=== PATIENT | male | born 1945 | race Caucasian/White ===

== ENCOUNTER 2018-11-17 10:51 | Emergency (ER) | payer MEDICARE, OTHER ==
[~2018-11-17] VITALS: Ht 182.9 cm; Wt 81.7 kg
[2018-11-17 11:33] LABS: BASOPHILS ABSOLUTE AUTO 0.02 K/mm3 (0.00-0.23); BASOPHILS PERCENT AUTO 0 % (0-2); EOSINOPHILS ABSOLUTE AUTO 0.03 K/mm3 (0.00-0.68); EOSINOPHILS PERCENT AUTO 0 % (0-6); Hematocrit 43.7 % (37.0-53.0); IMMATURE GRAN ABSOLUTE AUTO 0.04 K/mm3 (0.00-0.10); IMMATURE GRAN PERCENT AUTO 1 % (0-1); LYMPHOCYTES ABSOLUTE AUTO 1.22 K/mm3 (0.84-5.20); LYMPHOCYTES PERCENT AUTO 17 % (21-46); MONOCYTES ABSOLUTE AUTO 0.43 K/mm3 (0.16-1.47); MONOCYTES PERCENT AUTO 6 % (4-13); Mean Corpuscular HGB 31.1 pg (26.0-34.0); Mean Corpuscular HGB Conc 34.3 g/dL (31.5-36.5); Mean Corpuscular Volume 91 fL (80-100); Mean Platelet Volume 9.3 fL (9.1-12.4); NEUTROPHILS ABSOLUTE AUTO 5.29 K/mm3 (1.96-9.15); NEUTROPHILS PERCENT AUTO 75 % (41-73); Platelet Count 196 K/mm3 (150-400); RDW Coefficient Variation 13.5 % (11.7-14.2); RDW Standard Deviation 44.9 fL (35.1-46.3); Red Blood Cell Count 4.82 M/mm3 (4.30-5.90); White Blood Cell Count 7.03 K/mm3 (4.00-11.30)
[2018-11-17] MEDS ORDERED: VENL150ER PO (11:34)
[2018-11-17] MEDS ORDERED: ROSU10TA PO (11:34)
[2018-11-17 11:55] LABS: Alanine Aminotransfer (ALT/SGP 43 U/L (12-78); Albumin, Blood 3.8 g/dL (3.4-5.0); Alk Phos 80 U/L (50-136); Anion Gap 11 mmol/L (6-16); Aspartate Aminotrans (AST/SGOT 29 U/L (12-37); Bilirubin, Total 0.6 mg/dL (0.1-1.0); Blood Urea Nitrogen 13 mg/dL (8-24); Bun/Creatinine Ratio 15.4 (12.0-20.0); CO2, Blood 23 mmol/L (21-32); Calcium, Blood 9.1 mg/dL (8.5-10.1); Chloride, Blood 109 mmol/L (98-108); Creatinine, Blood 0.85 mg/dL (0.60-1.20); Globulin, Blood 3.8 g/dL (2.2-4.0); Glomerular Filtration Rate >60 (60-); Glucose, Blood 135 mg/dL (70-99); Potassium, Blood 3.6 mmol/L (3.5-5.5); Sodium, Blood 143 mmol/L (136-145); Total Protein, Blood 7.6 g/dL (6.4-8.2)
[2018-11-17] MEDS ORDERED: Zofran4 MG PO (13:09)
== END 2018-11-17 13:20 | disposition home or self-care (01) ==
LOC: ER 10:51
PROVIDERS: Emergency Medicine
DX: R11.2 Nausea with vomiting, unspecified (principal); R10.30 Lower abdominal pain, unspecified; Z79.899 Other long term (current) drug therapy; E78.00 Pure hypercholesterolemia, unspecified
CPT/HCPCS: 36415; 74176; 80053; 83690; 85025; 96361; 96374; 99284-25; J2405; J7030

== ENCOUNTER 2018-12-11 08:51 | Day surgery (SDC) | payer MEDICARE, OTHER ==
[~2018-12-11] VITALS: Ht 182.9 cm; Wt 86.9 kg
[~2018-12-11 08:51] MED LIST: ROSU10TA PO; VENL150ER PO; Zofran4 MG PO
[2018-12-11] MEDS ORDERED: PANT40 (10:07)
--- NOTE | 2018-12-11 10:21 | NUR ---
12/11/18 1021 Britta Arnold PT NOTIFIED ON DELAY D/T PREVIOUS CASE TAKING LONGER THAN EXPECTED. PT STATES AN UNDERSTANDING. PT RESTING COMFORTABLY IN PRE OP, CALL LIGHT WITHIN REACH. WILL CONTINUE TO MONITOR UNTIL REPORT GIVEN TO OR NURSE.
== END 2018-12-11 13:14 | disposition home or self-care (01) ==
LOC: ORSCSDS 08:51
PROVIDERS: Podiatrist Foot & Ankle Surgery
PROC: 0JNR0ZZ Release Left Foot Subcutaneous Tissue and Fascia, Open Approach (ICD-10-PCS; principal; 2018-12-11 10:30)
PROC: 0HTRXZZ Resection of Toe Nail, External Approach (ICD-10-PCS; principal; 2018-12-11 10:30)
DX: M72.2 Plantar fascial fibromatosis (principal); L03.032 Cellulitis of left toe; I25.10 Atherosclerotic heart disease of native coronary artery without angina pectoris; Z87.891 Personal history of nicotine dependence; Z79.899 Other long term (current) drug therapy
CPT/HCPCS: J0690; J2250; J2704; J3010; J7120

== ENCOUNTER → 2020-04-24 | Outpatient (CLI) | payer OTHER ==
[~2020-04-24] MED LIST changes: +PANT40
== END | disposition home or self-care (01) ==
LOC: LAB 12:04 → LAB SHORT 12:04
DX: L01.02 Bockhart's impetigo (principal)
CPT/HCPCS: 88305

== ENCOUNTER → 2020-07-20 | Outpatient (CLI) | payer OTHER | LOC: LAB SHORT 12:38 → PLD 12:38 | DX: L57.0 Actinic keratosis (principal) | CPT/HCPCS: 88305 ==

== ENCOUNTER → 2020-10-02 | Outpatient (CLI) | payer OTHER ==
[2020-10-02 10:58] LABS: BASOPHILS ABSOLUTE AUTO 0.03 K/mm3 (0.00-0.23); BASOPHILS PERCENT AUTO 0 % (0-2); EOSINOPHILS ABSOLUTE AUTO 0.03 K/mm3 (0.00-0.68); EOSINOPHILS PERCENT AUTO 0 % (0-6); Hematocrit 44.6 % (37.0-53.0); Hemoglobin 15.4 g/dL (13.5-17.5); IMMATURE GRAN ABSOLUTE AUTO 0.03 K/mm3 (0.00-0.10); IMMATURE GRAN PERCENT AUTO 0 % (0-1); LYMPHOCYTES ABSOLUTE AUTO 1.55 K/mm3 (0.84-5.20); LYMPHOCYTES PERCENT AUTO 17 % (21-46); MONOCYTES ABSOLUTE AUTO 0.68 K/mm3 (0.16-1.47); MONOCYTES PERCENT AUTO 7 % (4-13); Mean Corpuscular HGB 31.8 pg (26.0-34.0); Mean Corpuscular HGB Conc 34.5 g/dL (31.5-36.5); Mean Corpuscular Volume 92 fL (80-100); Mean Platelet Volume 9.6 fL (9.1-12.4); NEUTROPHILS ABSOLUTE AUTO 7.07 K/mm3 (1.96-9.15); NEUTROPHILS PERCENT AUTO 75 % (41-73); Platelet Count 242 K/mm3 (150-400); RDW Coefficient Variation 13.3 % (11.7-14.2); RDW Standard Deviation 44.2 fL (35.1-46.3); Red Blood Cell Count 4.85 M/mm3 (4.30-5.90); White Blood Cell Count 9.39 K/mm3 (4.00-11.30)
[2020-10-02 11:12] LABS: Alanine Aminotransfer (ALT/SGP 28 U/L (12-78); Albumin, Blood 4.2 g/dL (3.4-5.0); Albumin/Globulin Ratio 1.1 (0.8-1.8); Alk Phos 72 U/L (40-126); Anion Gap 8 mmol/L (6-16); Aspartate Aminotrans (AST/SGOT 23 U/L (12-37); Bilirubin, Total 0.8 mg/dL (0.1-1.0); Blood Urea Nitrogen 20 mg/dL (8-24); Bun/Creatinine Ratio 21.3 (12.0-20.0); CO2, Blood 27 mmol/L (21-32); Calcium, Blood 9.4 mg/dL (8.5-10.1); Chloride, Blood 100 mmol/L (98-108); Creatinine, Blood 0.94 mg/dL (0.60-1.20); Globulin, Blood 3.9 g/dL (2.2-4.0); Glomerular Filtration Rate >60 (60-); Glucose, Blood 112 mg/dL (70-99); Potassium, Blood 3.7 mmol/L (3.5-5.5); Sodium, Blood 135 mmol/L (136-145); Total Protein, Blood 8.1 g/dL (6.4-8.2)
== END | disposition home or self-care (01) ==
LOC: LAB SHORT 10:54 → LAB EV 10:54
PROVIDERS: General Practice
DX: R10.13 Epigastric pain (principal)
CPT/HCPCS: 80053; 85025

== ENCOUNTER → 2022-03-12 | Outpatient (CLI) | payer OTHER ==
[2022-03-12 19:05] LABS: BASOPHILS ABSOLUTE AUTO 0.04 K/mm3 (0.00-0.23); BASOPHILS PERCENT AUTO 1 % (0-2); EOSINOPHILS PERCENT AUTO 3 % (0-6); Hematocrit 41.2 % (37.0-53.0); Hemoglobin 14.1 g/dL (13.5-17.5); IMMATURE GRAN ABSOLUTE AUTO 0.03 K/mm3 (0.00-0.10); IMMATURE GRAN PERCENT AUTO 0 % (0-1); LYMPHOCYTES ABSOLUTE AUTO 3.28 K/mm3 (0.84-5.20); LYMPHOCYTES PERCENT AUTO 43 % (21-46); MONOCYTES ABSOLUTE AUTO 0.78 K/mm3 (0.16-1.47); MONOCYTES PERCENT AUTO 10 % (4-13); Mean Corpuscular HGB 31.6 pg (26.0-34.0); Mean Corpuscular HGB Conc 34.2 g/dL (31.5-36.5); Mean Corpuscular Volume 92 fL (80-100); NEUTROPHILS ABSOLUTE AUTO 3.27 K/mm3 (1.96-9.15); NEUTROPHILS PERCENT AUTO 43 % (41-73); Platelet Count 174 K/mm3 (150-400); RDW Standard Deviation 43.2 fL (35.1-46.3); Red Blood Cell Count 4.46 M/mm3 (4.30-5.90)
[2022-03-12 19:55] LABS: Alanine Aminotransfer (ALT/SGP 29 U/L (12-78); Albumin, Blood 3.7 g/dL (3.4-5.0); Albumin/Globulin Ratio 0.9 (0.8-1.8); Alk Phos 75 U/L (50-136); Anion Gap 6 mmol/L (6-16); Aspartate Aminotrans (AST/SGOT 26 U/L (12-37); Bilirubin, Total 0.4 mg/dL (0.1-1.0); Blood Urea Nitrogen 14 mg/dL (8-24); Bun/Creatinine Ratio 15.7 (12.0-20.0); CHOL/HDL RATIO 4.3; CO2, Blood 24 mmol/L (21-32); Calcium, Blood 9.1 mg/dL (8.5-10.1); Chloride, Blood 110 mmol/L (98-108); Cholesterol 165 mg/dL (50-200); Creatinine, Blood 0.89 mg/dL (0.60-1.20); Globulin, Blood 4.1 g/dL (2.2-4.0); Glomerular Filtration Rate 89 (60-); Glucose, Blood 91 mg/dL (70-99); HDL Cholesterol 38 mg/dL (>39); LDL/HDL RATIO 2.4; Low Density Lipoprotein Chol 91 mg/dL (0-110); Potassium, Blood 4.2 mmol/L (3.5-5.5); Sodium, Blood 140 mmol/L (136-145); Total Protein, Blood 7.8 g/dL (6.4-8.2); Triglycerides 181 mg/dL (30-160); Very Low Density Lipoprot Chol 36 mg/dL (6-32)
== END | disposition home or self-care (01) ==
LOC: LAB 16:10 → LAB SHORT 16:10
PROVIDERS: Family Medicine
DX: Z13.6 Encounter for screening for cardiovascular disorders (principal); Z11.59 Encounter for screening for other viral diseases; R06.00 Dyspnea, unspecified
CPT/HCPCS: 80053; 80061; 84443; 85025; 86803

== ENCOUNTER 2023-01-09 10:32 | Emergency (ER) | payer OTHER ==
[~2023-01-09] VITALS: Ht 182.9 cm; Wt 81.7 kg
[2023-01-09 12:00] LABS: BASOPHILS ABSOLUTE AUTO 0.04 K/mm3 (0.00-0.23); BASOPHILS PERCENT AUTO 1 % (0-2); EOSINOPHILS ABSOLUTE AUTO 0.11 K/mm3 (0.00-0.68); EOSINOPHILS PERCENT AUTO 1 % (0-6); Hematocrit 37.1 % (37.0-53.0); Hemoglobin 12.7 g/dL (13.5-17.5); IMMATURE GRAN ABSOLUTE AUTO 0.02 K/mm3 (0.00-0.10); IMMATURE GRAN PERCENT AUTO 0 % (0-1); LYMPHOCYTES ABSOLUTE AUTO 1.64 K/mm3 (0.84-5.20); LYMPHOCYTES PERCENT AUTO 22 % (21-46); MONOCYTES ABSOLUTE AUTO 0.66 K/mm3 (0.16-1.47); MONOCYTES PERCENT AUTO 9 % (4-13); Mean Corpuscular HGB 31.3 pg (26.0-34.0); Mean Corpuscular HGB Conc 34.2 g/dL (31.5-36.5); Mean Corpuscular Volume 91 fL (80-100); Mean Platelet Volume 10.6 fL (9.1-12.4); NEUTROPHILS ABSOLUTE AUTO 5.12 K/mm3 (1.96-9.15); NEUTROPHILS PERCENT AUTO 68 % (41-73); Platelet Count 101 K/mm3 (150-400); RDW Coefficient Variation 14.1 % (11.7-14.2); RDW Standard Deviation 47.1 fL (35.1-46.3); Red Blood Cell Count 4.06 M/mm3 (4.30-5.90); White Blood Cell Count 7.59 K/mm3 (4.00-11.30)
[2023-01-09 12:41] LABS: Albumin, Blood 3.6 g/dL (3.4-5.0); Albumin/Globulin Ratio 0.9 (0.8-1.8); Bilirubin, Total 0.6 mg/dL (0.1-1.0); Bun/Creatinine Ratio 24.4 (12.0-20.0); Calcium, Blood 8.8 mg/dL (8.5-10.1); Creatinine, Blood 0.86 mg/dL (0.60-1.20); Globulin, Blood 3.9 g/dL (2.2-4.0); Potassium, Blood 4.5 mmol/L (3.5-5.5); Total Protein, Blood 7.5 g/dL (6.4-8.2)
[2023-01-09] MEDS ORDERED: Norco 5-325 Ta1 EACH PO (13:59)
[2023-01-09] MEDS ORDERED: ONDA4ODT MM (13:59)
[2023-01-09 14:01] VITALS: BP 143/72
== END 2023-01-09 14:19 | disposition home or self-care (01) ==
LOC: ER 10:32
PROVIDERS: Physician Assistant
DX: K85.90 Acute pancreatitis without necrosis or infection, unspecified (principal); Z88.6 Allergy status to analgesic agent; Z79.899 Other long term (current) drug therapy; E78.00 Pure hypercholesterolemia, unspecified; Z87.891 Personal history of nicotine dependence
CPT/HCPCS: 80053; 83690; 85025; 99284

== ENCOUNTER 2023-01-23 12:23 | Emergency (ER) | payer OTHER ==
[~2023-01-23] VITALS: Ht 182.9 cm; Wt 79.4 kg
[~2023-01-23 12:23] MED LIST changes: +Norco 5-325 Ta1 EACH PO; +ONDA4ODT MM
[2023-01-23 13:02] LABS: BASOPHILS ABSOLUTE AUTO 0.03 K/mm3 (0.00-0.23); BASOPHILS PERCENT AUTO 1 % (0-2); EOSINOPHILS ABSOLUTE AUTO 0.07 K/mm3 (0.00-0.68); EOSINOPHILS PERCENT AUTO 1 % (0-6); Hematocrit 40.3 % (37.0-53.0); Hemoglobin 13.9 g/dL (13.5-17.5); IMMATURE GRAN ABSOLUTE AUTO 0.02 K/mm3 (0.00-0.10); IMMATURE GRAN PERCENT AUTO 0 % (0-1); LYMPHOCYTES ABSOLUTE AUTO 1.61 K/mm3 (0.84-5.20); LYMPHOCYTES PERCENT AUTO 26 % (21-46); MONOCYTES ABSOLUTE AUTO 0.72 K/mm3 (0.16-1.47); MONOCYTES PERCENT AUTO 11 % (4-13); Mean Corpuscular HGB 31.6 pg (26.0-34.0); Mean Corpuscular HGB Conc 34.5 g/dL (31.5-36.5); Mean Corpuscular Volume 92 fL (80-100); Mean Platelet Volume 10.6 fL (9.1-12.4); NEUTROPHILS ABSOLUTE AUTO 3.85 K/mm3 (1.96-9.15); NEUTROPHILS PERCENT AUTO 61 % (41-73); Platelet Count 116 K/mm3 (150-400); RDW Coefficient Variation 14.6 % (11.7-14.2); RDW Standard Deviation 48.9 fL (35.1-46.3)
[2023-01-23 13:42] LABS: Albumin, Blood 3.9 g/dL (3.4-5.0); Bilirubin, Total 0.7 mg/dL (0.1-1.0); Bun/Creatinine Ratio 21.6 (12.0-20.0); Calcium, Blood 9.3 mg/dL (8.5-10.1); Creatinine, Blood 0.93 mg/dL (0.60-1.20); Globulin, Blood 3.9 g/dL (2.2-4.0); Total Protein, Blood 7.8 g/dL (6.4-8.2)
[2023-01-23] MEDS ORDERED: Inderal60 MG PO (15:25)
[2023-01-23] MEDS ORDERED: PROM25 PO (16:56)
[2023-01-23] MEDS ORDERED: MECL25 PO (16:56)
[2023-01-23 17:22] VITALS: BP 129/65
== END 2023-01-23 17:25 | disposition home or self-care (01) ==
LOC: ER 12:23
PROVIDERS: Physician Assistant
DX: R11.2 Nausea with vomiting, unspecified (principal); H93.19 Tinnitus, unspecified ear; K80.20 Calculus of gallbladder without cholecystitis without obstruction; Z87.891 Personal history of nicotine dependence
CPT/HCPCS: 76705; 80053; 83690; 85025; J2405; J7030

== ENCOUNTER 2023-03-31 12:43 | Inpatient (IN) | payer OTHER ==
[2023-03-31] VITALS (9 sets, daily range): BP systolic 102–111; BP diastolic 55–64
[~2023-03-31] VITALS: Ht 182.9 cm; Wt 82.3 kg
[~2023-03-31 12:43] MED LIST changes: +Inderal60 MG PO; +MECL25 PO; +PROM25 PO
[2023-03-31 13:35] LABS: International Normalized Ratio 1.04; Prothrombin Time Results 10.9 Sec (9.7-11.5)
[2023-03-31] MEDS ORDERED: Ventolin/Prove6.7 GM INH (13:57)
[2023-03-31 14:54] LABS: CHOL/HDL RATIO 3.4; Cholesterol 115 mg/dL (50-200); HDL Cholesterol 34 mg/dL (>39); LDL/HDL RATIO 1.6; Low Density Lipoprotein Chol 55 mg/dL (0-110); Triglycerides 132 mg/dL (30-160); Very Low Density Lipoprot Chol 26 mg/dL (6-32)
[2023-03-31 15:49] LABS: Influenza A, PCR NEGATIVE (NEGATIVE); Influenza B, PCR NEGATIVE (NEGATIVE); Resp Syncytial Virus, PCR NEGATIVE (NEGATIVE); SARS-Cov-2 (COVID-19) PCR, MMC NEGATIVE (NEGATIVE)
--- NOTE | 2023-03-31 17:44 | NUR ---
PT ARRIVED IN THE ROOM FROM [employer]NCE OFFICER, PT GOT PUSHED OFF FOR LATER FOR ANGIO. REPORT RECEIVED FROM LAVELL GARCIA. PT WAS AMBULATORY WAS ABLE TO WALK TO THE BATHROOM TO VOID SBA. PT IS ALERT AND ORIENTED X4, ANSWERS QUESTIONS APPROPRIATELY, HAS HX OF TINNITUS/VERTIGO, [place]. VITALS HRR SB 55, SBP 114-116, SATS ABOVE 95% ON RA, AFEBRILE. PT HAS CONSTANT CHEST PRESSURE 3/10 DENIES NEED FOR PAIN MEDICINE. CURRENTLY RESTING IN BED WATCHING TV. HEPARIN GTT AT 15U/KG/HR IS CURRENTLY RUNNING PER CHENG GARCIA FROM [employer] OFFICER. PT KEPT NPO AWAITING FOR PROCEDURE TONIGHT. PT ABLE TO MAKE NEEDS KNOWN, CALL LIGHTS IN REACH WILL CONTINUE TO MONITOR
--- NOTE | 2023-03-31 17:49 | NUR ---
PT IS A FORMER SMOKER FOR 40 YEARS QUIT ON 2007. PT EDCUATED ABOUT IGNITION RISK AND SMOKING POLICY. PT DENIES HAVING ANY IGNITION SOURCES IN THE BELONGINGS.
[2023-04-01] VITALS: BP 99/54
--- NOTE | 2023-04-01 00:54 | NUR ---
SAFETY & EDUCATION PT & FAMILY EDUCATED RE: IGNITION SOURCES AND RISK OF INJURY WHILE OXYGEN IS IN USE. PT DENIES SMOKING & PT AND FAMILY VERBALIZE UNDERSTANDING.
[2023-04-01 01:00] VITALS: BP 110/52
--- NOTE | 2023-04-01 01:33 | NUR ---
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 TR BAND AND ARM BOARD IN PLACE ON R RADIAL SITE. SITE FREE OF OOZING, BRUISING, AND HEMATOMA. SpO2> 92% ON R INDEX FINGER. BP STABLE, SB-SR 50-60's, DENIES CP/PRESSURE. 2109: 1mL OF AIR REMOVED FROM TR BAND. R RADIAL SITE. SITE FREE OF OOZING, BRUISING, AND HEMATOMA. SpO2> 92% ON R INDEX FINGER. ARM BOARD IN PLACE. 2124: 1mL OF AIR REMOVED FROM TR BAND. R RADIAL SITE. SITE FREE OF OOZING, BRUISING, AND HEMATOMA. SpO2> 92% ON R INDEX FINGER. ARM BOARD IN PLACE. 2134: 1mL OF AIR REMOVED FROM TR BAND. R RADIAL SITE. SITE FREE OF OOZING, BRUISING, AND HEMATOMA. SpO2> 92% ON R INDEX FINGER. ARM BOARD IN PLACE. 2154: 1mL OF AIR REMOVED FROM TR BAND. R RADIAL SITE. SITE FREE OF OOZING, BRUISING, AND HEMATOMA. SpO2> 92% ON R INDEX FINGER. ARM BOARD IN PLACE. 2234: 1mL OF AIR REMOVED FROM TR BAND. R RADIAL SITE. SITE FREE OF OOZING, BRUISING, AND HEMATOMA. SpO2> 92% ON R INDEX FINGER. ARM BOARD IN PLACE. 2330: 2mL OF AIR REMOVED FROM TR BAND, BAND NOW EMTPY. R RADIAL SITE. SITE FREE OF OOZING, BRUISING, AND HEMATOMA. SpO2> 92% ON R INDEX FINGER. ARM BOARD IN PLACE. 0030: TR BAND REMOVED. SITE CLEANED WITH CHLORHEXIDINE, SKIN PREP APPLIED, TEGADREM DRESSING PLACED. SITE FREE OF OOZING, BRUISING, AND HEMATOMA. SpO2> 92% ON R INDEX FINGER. ARM BOARD IN PLACE.
[2023-04-01 02:00] VITALS: BP 100/56
[2023-04-01 03:15] VITALS: BP 97/56
[2023-04-01 04:12] LABS: BASOPHILS ABSOLUTE AUTO 0.03 K/mm3 (0.00-0.23); BASOPHILS PERCENT AUTO 1 % (0-2); EOSINOPHILS ABSOLUTE AUTO 0.06 K/mm3 (0.00-0.68); EOSINOPHILS PERCENT AUTO 2 % (0-6); Hematocrit 30.1 % (37.0-53.0); Hemoglobin 10.4 g/dL (13.5-17.5); IMMATURE GRAN ABSOLUTE AUTO 0.02 K/mm3 (0.00-0.10); IMMATURE GRAN PERCENT AUTO 1 % (0-1); LYMPHOCYTES ABSOLUTE AUTO 0.93 K/mm3 (0.84-5.20); LYMPHOCYTES PERCENT AUTO 31 % (21-46); MONOCYTES ABSOLUTE AUTO 0.98 K/mm3 (0.16-1.47); MONOCYTES PERCENT AUTO 33 % (4-13); Mean Corpuscular HGB 32.6 pg (26.0-34.0); Mean Corpuscular HGB Conc 34.6 g/dL (31.5-36.5); Mean Corpuscular Volume 94 fL (80-100); Mean Platelet Volume 10.8 fL (9.1-12.4); NEUTROPHILS ABSOLUTE AUTO 0.96 K/mm3 (1.96-9.15); NEUTROPHILS PERCENT AUTO 32 % (41-73); Platelet Count 71 K/mm3 (150-400); RDW Coefficient Variation 15.5 % (11.7-14.2); RDW Standard Deviation 53.3 fL (35.1-46.3); Red Blood Cell Count 3.19 M/mm3 (4.30-5.90); White Blood Cell Count 2.98 K/mm3 (4.00-11.30)
[2023-04-01 04:25] LABS: Bun/Creatinine Ratio 19.6 (12.0-20.0); Calcium, Blood 8.2 mg/dL (8.5-10.1); Creatinine, Blood 0.77 mg/dL (0.60-1.20); Potassium, Blood 3.7 mmol/L (3.5-5.5)
[2023-04-01 05:00] VITALS: BP 100/52
--- NOTE | 2023-04-01 05:08 | NUR ---
SHIFT SUMMARY SEE PREVIOUS NOTES. PT A&Ox4, CALLS AND COMMUNICATES NEEDS APPROPRIATELY. PT ATTEMPTED TO LEAVE AMA AT APPROXIMATELY 0300, DISCUSSED BENEFITS OF WAITING UNTIL PT CAN TALK WITH THIS MORNING, PT AGREED TO STAY. BP SOFT WITH SBP 90's, MAP> 65, ASYMPTOMATIC. SINUS 60's, DENIES CP/PRESSURE. SpO2> 92% RA-2L, PT HAS POOR PERFUSION MAKING IT DIFFICULT TO GET AN ACCURATE SpO2 READING. PT DENIES SOB THROUGHOUT SHIFT. R RADIAL SITE REMAINS WNL, C/D/I, ARM BOARD IN PLACE. IND IN ROOM, CONTINENT OF URINE, NO BM THIS SHIFT. PT WITH ONE, SMALL EPISODE OF HEMOPTYSIS AT APPROXIMATELY 0000, NONE SINCE. NO S/S OF BLEEDING. NO OTHER EVENTS, WILL REPORT TO ONCOMING RN.
[2023-04-01 07:00] VITALS: BP 93/52
--- NOTE | 2023-04-01 08:24 | NUR ---
Received report from Levon GARCIA. Patient awake in bed and states he wants to go home and is maya vague on everything going on. he is able to communicate needs andpoor historian of events. He is on 2L O2 and placed on RA as he is not on O2 at home and withouty exertion he is 90-93%. Dr singh came by and is discharging him She wanted home O2 eval and RT came and stated he will need O@. I asked patient if he is going to wear if we set him up and he stated he does not need O2 and will not be wearing when he goes home. He is SR 60's. He has 20ga IV to LAC and is flushed and SL'd. He is being discharged and awaiting adult care provider.
--- NOTE | 2023-04-01 08:40 | NUR ---
Right TR site assessed and no swelling or bleeding. Small amount of bruising and non tender. Replaced wrist support. and educated patient on no lifting or twisting of wrist for several days to let heal.
[2023-04-01] MEDS ORDERED: ASPI81CH PO (09:14)
[2023-04-01] MEDS ORDERED: PANT40 PO (09:14)
--- NOTE | 2023-04-01 09:34 | NUR ---
Patient is discharged. He received written discharge instructions and reviewed TR band precautions. When entering ionto room the floor had blood all over it as he was inpatient and pulled LAC IV and was bleeding from it. Explained the importance of waiting for discharge instructions as we reviewed new medications and when reviewing medications he stated that he was not taking listed meds and I educated the importance of communicating with his Dr that he was no longer taking his med and that he needed to take meds on discharge instructions. He garthered belongings and was taken to exit where he was going to drive self home even though we stated that he should not drive himself. He continues to refuse O2 even when RT instructed him and care manger asked him. He continues to state he does not need O2 and sats as low as 76% with quick recovery when sitting still.
== END 2023-04-01 09:31 | disposition home or self-care (01) | DRG 281 ==
LOC: ER 12:43 → PCU 14:23
PROVIDERS: Emergency Medicine; ADMIT Family Medicine
PROC: B2111ZZ Fluoroscopy of Multiple Coronary Arteries using Low Osmolar Contrast (ICD-10-PCS; principal; 2023-03-31)
PROC: 4A023N7 Measurement of Cardiac Sampling and Pressure, Left Heart, Percutaneous Approach (ICD-10-PCS; 2023-03-31)
PROC: B241ZZZ Ultrasonography of Multiple Coronary Arteries (ICD-10-PCS; 2023-03-31)
DX: I21.4 Non-ST elevation (NSTEMI) myocardial infarction (principal); D61.818 Other pancytopenia; I27.20 Pulmonary hypertension, unspecified; I34.0 Nonrheumatic mitral (valve) insufficiency; J44.9 Chronic obstructive pulmonary disease, unspecified; R00.1 Bradycardia, unspecified; I25.10 Atherosclerotic heart disease of native coronary artery without angina pectoris; Z66 Do not resuscitate; I71.40 Abdominal aortic aneurysm, without rupture, unspecified; I67.9 Cerebrovascular disease, unspecified; E78.00 Pure hypercholesterolemia, unspecified; I25.2 Old myocardial infarction; I10 Essential (primary) hypertension; I35.0 Nonrheumatic aortic (valve) stenosis; Z20.822 Contact with and (suspected) exposure to COVID-19; E03.9 Hypothyroidism, unspecified; Z86.79 Personal history of other diseases of the circulatory system; Z79.899 Other long term (current) drug therapy; Z88.8 Allergy status to other drugs, medicaments and biological substances; Z98.890 Other specified postprocedural states; Z79.82 Long term (current) use of aspirin; Z87.891 Personal history of nicotine dependence; Z79.51 Long term (current) use of inhaled steroids; Z98.61 Coronary angioplasty status
CPT/HCPCS: 0241U; 36415; 71046; 71275; 74174; 76937; 80048; 80061; 84484; 85025; 85520; 85610; 85730; 93306; 93458; 94760; 94761; 96374-59; 99152; 99153; 99285-25; A9270; C1769; C1887; C1894; J1644; J2250; J3010; J7030; J7040; J7050; Q9967

== ENCOUNTER 2023-04-02 13:34 | Inpatient (IN) | payer OTHER ==
[~2023-04-02] VITALS: Ht 182.9 cm; Wt 78.7 kg
[~2023-04-02 13:34] MED LIST changes: +ASPI81CH PO; +PANT40 PO; +Ventolin/Prove6.7 GM INH
[2023-04-02 14:15] LABS: BASOPHILS ABSOLUTE AUTO 0.03 K/mm3 (0.00-0.23); BASOPHILS PERCENT AUTO 1 % (0-2); EOSINOPHILS ABSOLUTE AUTO 0.03 K/mm3 (0.00-0.68); EOSINOPHILS PERCENT AUTO 1 % (0-6); Hematocrit 31.4 % (37.0-53.0); Hemoglobin 10.9 g/dL (13.5-17.5); IMMATURE GRAN ABSOLUTE AUTO 0.03 K/mm3 (0.00-0.10); IMMATURE GRAN PERCENT AUTO 1 % (0-1); LYMPHOCYTES ABSOLUTE AUTO 0.92 K/mm3 (0.84-5.20); LYMPHOCYTES PERCENT AUTO 30 % (21-46); MONOCYTES ABSOLUTE AUTO 1.12 K/mm3 (0.16-1.47); MONOCYTES PERCENT AUTO 37 % (4-13); Mean Corpuscular HGB 32.2 pg (26.0-34.0); Mean Corpuscular HGB Conc 34.7 g/dL (31.5-36.5); Mean Corpuscular Volume 93 fL (80-100); Mean Platelet Volume 10.7 fL (9.1-12.4); NEUTROPHILS ABSOLUTE AUTO 0.91 K/mm3 (1.96-9.15); NEUTROPHILS PERCENT AUTO 30 % (41-73); Platelet Count 76 K/mm3 (150-400); RDW Coefficient Variation 15.2 % (11.7-14.2); RDW Standard Deviation 51.5 fL (35.1-46.3); Red Blood Cell Count 3.38 M/mm3 (4.30-5.90); White Blood Cell Count 3.04 K/mm3 (4.00-11.30)
[2023-04-02 14:34] LABS: Albumin/Globulin Ratio 0.7 (0.8-1.8); Bilirubin, Total 1.1 mg/dL (0.1-1.0); Bun/Creatinine Ratio 20.4 (12.0-20.0); Calcium, Blood 8.4 mg/dL (8.5-10.1); Creatinine, Blood 0.88 mg/dL (0.60-1.20); Globulin, Blood 4.1 g/dL (2.2-4.0); Potassium, Blood 3.3 mmol/L (3.5-5.5); Total Protein, Blood 7.1 g/dL (6.4-8.2)
[2023-04-02 17:55] VITALS: BP 101/76
--- NOTE | 2023-04-02 18:08 | NUR ---
ARRIVAL FROM ER. PT ARRIVED FROM ER VIA GURNEY, STOOD AND TRANSFERED. CURRENTLY ON 4L NASAL CANULA. HE DENIES SHORTNESS OF BREATH AT THIS TIME. AND REPORTS HIS ONLY COMPLAINT "COUGHING UP BLOOD" DENIES CHEST PAIN. ON ARRIVAL TO UNIT PT CONNECTED TO TELE WITH RHYTHM SHOWING AFIB. NOTIFIED DR. STONE. ORDERS RECIEVED TO GIVE HIS PO METOPROLOL. PT ALSO STATED HE NO LONGER WISHES TO BE DNR AND HE CHANGED TO FULL CODE "YESTERDAY" DR. STONE NOTIFIED, CODE STATUS CHANGED. PT AA0X4 BUT H.O.H. UPDATED MED REC WITH PATIENT BASED ON WHAT HE TAKES AT HOME. HE DENIES COPD OR CARDIAC HISTORY BESIDES ANEURYSM REPAIR. PT SITTING UP IN BED WATCHING TV, WATER PROVIDED. PT DENIES FURTHER NEEDS AT THIS TIME. WILL HAND OFF REPORT TO ONCOMING RN. IGNITION RISK SCREEN FOR, PT DENIES SMOKING. NO IGNITION SOURCES FOUND.
[2023-04-02 19:32] VITALS: BP 101/84
[2023-04-02 22:37] VITALS: BP 75/53
[2023-04-02 23:45] VITALS: BP 89/61
[2023-04-03] VITALS (81 sets, daily range): BP systolic 66–141; BP diastolic 36–96
--- NOTE | 2023-04-03 00:27 | NUR ---
PT WAS HAVING AFIB WITH HR'S RANGING FROM 110-180. CALLED ZORAN MORRIS AND WAS GIVEN ORDER TO GIVE LOPRESSOR 5MG, WAIT 5 MIN AND THEN GIVE 5MG MORE IF HR OVER 120. HOWEVER, THIS MEDICATION COULD NOT BE GIVEN THE PT BLOOD PRESSURE WAS 75/53. PT MOVED TO ICU-11. REPORT GIVEN TO JOSE GARG @ [id number].
[2023-04-03 00:51] LABS: Bun/Creatinine Ratio 16.4 (12.0-20.0); Calcium, Blood 7.6 mg/dL (8.5-10.1); Creatinine, Blood 0.85 mg/dL (0.60-1.20); Potassium, Blood 3.2 mmol/L (3.5-5.5)
[2023-04-03 03:14] LABS: Hematocrit 25.8 % (37.0-53.0); Mean Corpuscular HGB 32.7 pg (26.0-34.0); Mean Corpuscular HGB Conc 34.9 g/dL (31.5-36.5); Mean Corpuscular Volume 94 fL (80-100); Mean Platelet Volume 10.8 fL (9.1-12.4); NRBC ABSOLUTE 0.02 K/mm3 (0.00-0.02); NRBC Auto 0.6 /100 WBC (0.0-0.2); Platelet Count 69 K/mm3 (150-400); RDW Coefficient Variation 15.1 % (11.7-14.2); RDW Standard Deviation 51.4 fL (35.1-46.3); Red Blood Cell Count 2.75 M/mm3 (4.30-5.90)
[2023-04-03 04:06] LABS: Magnesium, Blood 1.9 mg/dL (1.6-2.4); Percent Saturation 8.2 % (20.0-50.0)
[2023-04-03 04:07] LABS: Albumin, Blood 2.5 g/dL (3.4-5.0); Albumin/Globulin Ratio 0.7 (0.8-1.8); Bilirubin, Total 0.9 mg/dL (0.1-1.0); Bun/Creatinine Ratio 14.8 (12.0-20.0); Calcium, Blood 7.7 mg/dL (8.5-10.1); Creatinine, Blood 0.94 mg/dL (0.60-1.20); Globulin, Blood 3.5 g/dL (2.2-4.0); Potassium, Blood 3.9 mmol/L (3.5-5.5)
--- NOTE | 2023-04-03 05:50 | NUR ---
PT TRANSFER/SHIFT SUMMARY: PT TRANSFER TO ICU 11 FROM MEDICAL FLOOR DUE TO NEW-ONSET AFIB WITH RVR. PT ORIGINALLY ADMITTED WITH ACUTE ON CHRONIC CHF. WHEN PT ARRIVED TO THE UNIT PT AFIB ON MONITOR WITH HR 130-160'S, 2/10 CHEST PAIN AND SOB. PT RECIEVED DIGOXIN BOLUS. PT TOLERATED WELL AND RATE CAME DOWN TO 80-90'S. PT A&O X 4 WHEN ARRIVED TO THE UNIT. NC @ 2-4 LPM WITH SPO2 96<. PT TOLERATING PO INTAKE. PT USING URINAL FOR VOIDING; 325 ML URINE OUTPUT THIS SHIFT, URINE DARK YELLOW. SKIN INTACT AND WARM; PPP X 4. PT ABLE TO MOVE INDEPENDENTLY IN BED. PT STARTED TO BECOME HYPOTENSIVE AROUND 0200. DR ORANTES NOTIFIED AND ORDERS FOR A 250 BOLUS AND MIDODRINE ORDERED. PT RECIEVED THESE WITH LITTLE IMPROVEMENT TO BLOOD PRESSURE. DR ORANTES UPDATED AND LOW-DOSE OF LEVOPHED ORDERED. PT CURRENLTY SLEEPING IN BED, CALL LIGHT IN REACH. EDUCATION REGARDING IGNITION SOURCES AND FIRE SAFTEY PROVIDED, ALONG WITH HOURLY ROUNDING FOR IGNITON SOURCES.
--- NOTE | 2023-04-03 09:14 | NUR ---
CARE OF PT ASSUMED AT 0700. PT AWAKE IN BED WATCHING TV. PT DENIES C/O CHESP PAIN OR PRESSURE. DENIES SOB AT REST, C/O DYSPNEA W EXERTION. PT PT HAS LABORED BREATHING W ACTIVITY AND SPEECH. SATS >90% ON 2L 02 VIA N/C. AT 0700 PT COMPLAINED OF IV PAIN, LEVOPHED INFUSING AT 4MCG. NO INFILTRATION NOTED AND IV PULLED BACK BLOOD. AREA WITHOUT REDNESS TO LEFT AC. LEVOPHED STOPPED. RIGHT WRIST IV WAS NOT PATENT. DR STONE CALLED, ORDER OBTAINED FOR PICC LINE. CARDIOLOGY CONSULT WAS PLACED THIS AM AND DR MEJIA CALLED; DR MEJIA AT BEDSIDE SHORTLY AFTER NOTIFICATION. PT WILL BE MEDICALLY MANAGED PER DR MEJIA, AWAITING ORDERS. PICC LINE PLACED W/O DIFFICULTY. PT REMAINS HYPOTENSIVE BUT HAS MAINTAINED MAP'S >65. LEVOPHED HAS NOT BEEN RESTARTED. DURING BREAKFAST PT HAD SEVERAL EPISODES OF HEMOPTYSIS, SMALL AMT OF DARK RED BLOOD. NOTIFIED HE WAS PLANNING ON STARTING ANTICOAGULATION. CONSULT PLACED FOR PULM/DR ALEJANDRA. DR ALEJANDRA UPDATED AND WILL SEE PT THIS AM. PT DID EXPLAIN THAT HE LEFT AMA BECAUSE HE HAD DOGS AT HOME ALONE AND WAS WORRIED ABOUT THEIR WELFARE. HE FELT HE MADE A MISTAKE MEDICALLY SOON HE ARRIVED HOME. PER THE PT THE RENTAL COORDINATOR ASSISTED W FINDING THE DOGS TEMPORARY CARE.
--- NOTE | 2023-04-03 09:44 | NUR ---
THIS AM PT HAD BEEN IN AFIB W CONTROLLED RATE AROUND 100, PT CONVERTED TO SINUS AROUND 0800, AND AGAIN CONVERTED TO AFIB FOR SEVERAL MINUTES BEFORE CONVERTING BACK INTO SINUS. PICC LINE OKAY TO USE PER DR ALEJANDRA. LEVOPHED STARTED AT 2MCG FOR MAP <65. DR ALEJANDRA AT BEDSIDE NOW.
--- NOTE | 2023-04-03 10:36 | NUR ---
PT FOUND STANDING AT SIDE OF BED WITH URINAL. PT HAD BEEN ADVISED TO STAY IN BED D/T HEART RATE AND BLOOD PRESSURE, PT DID NOT CALL FOR ASSIST. HEART RATE RAISED HIGH 170 AFIB. HEART RATE NOW AROUND 110 AT REST.PT ASSISTED BACK TO BED AND EDUCATED ON THE IMPORTANCE OF BED REST AT THIS TIME. PT VERBALIZED UNDERSTANDING. WILL PLACE BED ALARM ON. PT TO GO FOR CTA STUDY SHORTLY.
--- NOTE | 2023-04-03 11:51 | NUR ---
PER DR MEJIA HOLD PO DOSE OF LASIX AND GIVE LASIX 20MG IV NOW.
--- NOTE | 2023-04-03 19:23 | NUR ---
PT HAD GOOD URINE OUTPUT TODAY; CONDOM CATH USED SUCCESSFULLY. LEVOPHED INCREASED FROM 2MCG TO 4MCG AROUND 1700. PT IN AFIB W CONTROLLED RATE FOR MOST OF SHIFT, OCC CONVERTING TO SINUS THEN BACK AGAIN TO AFIB. CTA NEGATIVE FOR PE. PT BEING TREATED FOR PNEUMONIA. PT W/O COMPLAINTS T/O SHIFT; DENIED CHEST PAIN/PRESSURE T/O SHIFT. PT EDUCATED ON IGNITION RISKS AND O2, PT VERBALIZED UNDERSTANDING. HOURLY ROUNDING COMPLETED ON IGNITION SOURCE/RISK.
--- NOTE | 2023-04-03 20:00 | NUR ---
ASSUMED CARE PT IS A&O RESTING QUIETLY. SPO2 >92% ON 2L NC; MAP >65 W/ LEVOPHED TITRATING; AFIB HR VARIABLE IN THE 80-90'S (UP TO 140~'S W/ EXERTION). PT DENIES CP, SOB, OR NAUSEA. PT HAS NOT BEEN ATTEMPTING TO GET OOB SO FAR THIS SHIFT AND APPEARS TO BE MORE ORIENTED TO ABILITY W/ INCIDENT ON PREVIOUS SHIFT (PER REPORT); PT REMINDED ABOUT IMPORTANCE OF BEDREST. CONDOM CATH IN PLACE AND DRAINING TOO GRAVITY. SCD'S IN PLACE.
--- NOTE | 2023-04-03 23:38 | NUR ---
UPDATE PT'S HR TRENDING UPWARDS; DR MEJIA CALLED W/ ORDERS FOR DIGOXIN IV NOW AND AGAIN 6 HOURS LATER IF RATE REMAINS UNCONTROLLED.
[2023-04-04] VITALS (57 sets, daily range): BP systolic 70–126; BP diastolic 42–92
[2023-04-04 03:34] LABS: BASOPHILS ABSOLUTE AUTO 0.02 K/mm3 (0.00-0.23); BASOPHILS PERCENT AUTO 0 % (0-2); EOSINOPHILS ABSOLUTE AUTO 0.03 K/mm3 (0.00-0.68); EOSINOPHILS PERCENT AUTO 1 % (0-6); Hematocrit 27.3 % (37.0-53.0); Hemoglobin 9.7 g/dL (13.5-17.5); IMMATURE GRAN ABSOLUTE AUTO 0.04 K/mm3 (0.00-0.10); IMMATURE GRAN PERCENT AUTO 1 % (0-1); LYMPHOCYTES ABSOLUTE AUTO 1.17 K/mm3 (0.84-5.20); LYMPHOCYTES PERCENT AUTO 25 % (21-46); MONOCYTES ABSOLUTE AUTO 1.35 K/mm3 (0.16-1.47); MONOCYTES PERCENT AUTO 29 % (4-13); Mean Corpuscular HGB 32.8 pg (26.0-34.0); Mean Corpuscular HGB Conc 35.5 g/dL (31.5-36.5); Mean Corpuscular Volume 92 fL (80-100); Mean Platelet Volume 11.2 fL (9.1-12.4); NEUTROPHILS ABSOLUTE AUTO 2.06 K/mm3 (1.96-9.15); NEUTROPHILS PERCENT AUTO 44 % (41-73); Platelet Count 77 K/mm3 (150-400); RDW Coefficient Variation 14.7 % (11.7-14.2); RDW Standard Deviation 49.6 fL (35.1-46.3); Red Blood Cell Count 2.96 M/mm3 (4.30-5.90); White Blood Cell Count 4.67 K/mm3 (4.00-11.30)
[2023-04-04 03:47] LABS: International Normalized Ratio 1.15
[2023-04-04 03:48] LABS: Bun/Creatinine Ratio 14.9 (12.0-20.0); Creatinine, Blood 0.81 mg/dL (0.60-1.20); Potassium, Blood 3.4 mmol/L (3.5-5.5)
--- NOTE | 2023-04-04 06:14 | NUR ---
SHIFT SUMMARY PT RESTED QUIETLY T/O NIGHT. DENIES CP, SOB, OR NAUSEA, BUT STATES THAT HE JUST FEELS SICK. SPO2 >92% NOW ON 2L NC; MAP >65 ON LEVOPHED GTT; HR IN THE AFIB/SINUS RHYTHM 80-110'S. NO ACUTE EVENTS OVERNIGHT.
--- NOTE | 2023-04-04 07:00 | NUR ---
ASSUMPTION OF CARE PT RESTING IN BED WATCHING TV. HE IS ALERT AND ORIENTED, FLAT AFFECT. LEVOPHED INFUSING AT 2MCG/MIN. SINUS RHYTHM ON MONITOR WITH RATE IN 90S. HE IS ON 2L NC WITH SPO2 >93%. BED IN LOW POSITION AND CALL LIGHT WITHIN REACH. SEE SHIFT ASSESSMENT.
[2023-04-04 11:50] LABS: Source, Urine Clean Catch
[2023-04-04 11:54] LABS: Appearance, Urine Clear (Clear); Bilirubin, Urine Neg (Neg); Blood, Urine 3+ (Neg); Color, Urine Amber (P-Yellow); Glucose Qualitative, Urine Neg (Neg); Ketones, Urine Neg (Neg); Leukocyte Esterase, Urine 1+ (Neg); Nitrite, Urine Neg (Neg); Protein, Urine 2+ (Neg); Urobilinogen, Urine 2+ (Normal)
[2023-04-04 12:02] LABS: Granular Casts 0-2 /lpf (0); Mucus Heavy (0-Heavy)
[2023-04-04 12:03] LABS: Amorphous Mod (0-Heavy); Bacteria Few /hpf; Squamous Epithelial Cells Few /hpf (Few)
[2023-04-04 13:19] LABS: Bun/Creatinine Ratio 17.5 (12.0-20.0); Calcium, Blood 7.6 mg/dL (8.5-10.1); Creatinine, Blood 0.8 mg/dL (0.60-1.20); Potassium, Blood 3.8 mmol/L (3.5-5.5)
[2023-04-04 15:52] LABS: Acinetobacter baumannii DNA Not Detected copy/mL (NOT DETECT); Enterobacter cloacae DNA Not Detected copy/mL (NOT DETECT); Escherichia coli DNA Not Detected copy/mL (NOT DETECT); Haemophilus influenzae DNA Not Detected copy/mL (NOT DETECT); Klebsiella aerogenes DNA Not Detected copy/mL (NOT DETECT); Klebsiella oxytoca DNA Not Detected copy/mL (NOT DETECT); Klebsiella pneumoniae DNA Not Detected copy/mL (NOT DETECT); Moraxella catarrhalis DNA Not Detected copy/mL (NOT DETECT); Proteus sp DNA Not Detected copy/mL (NOT DETECT); Pseudomonas aeruginosa DNA Not Detected copy/mL (NOT DETECT); Serratia marcescens DNA Not Detected copy/mL (NOT DETECT); Staphylococcus aureus DNA Not Detected copy/mL (NOT DETECT); Streptococcus agalactiae DNA Not Detected copy/mL (NOT DETECT); Streptococcus pneumoniae DNA Not Detected copy/mL (NOT DETECT); Streptococcus pyogenes DNA Not Detected copy/mL (NOT DETECT)
[2023-04-04 15:53] LABS: Adenovirus DNA Not Detected (NOT DETECT); Chlamydia pneumonia Not Detected (NOT DETECT); Human Coronavirus RNA Not Detected (NOT DETECT); Human Metapneumovirus RNA Not Detected (NOT DETECT); Influenza virus A RNA Not Detected (NOT DETECT); Influenza virus B RNA Not Detected (NOT DETECT); Legionella pneumophila Not Detected (NOT DETECT); Mycoplasma pneumoniae Not Detected (NOT DETECT); Parainfluenza virus RNA Not Detected (NOT DETECT); Respiratory syncytial Vir RNA Not Detected (NOT DETECT); Rhinovirus+Enterovirus RNA Not Detected (NOT DETECT)
--- NOTE | 2023-04-04 17:51 | NUR ---
SHIFT SUMMARY PT REMAINS ALERT AND ORIENTED. PT UP IN CHAIR AND TO BATHROOM WITH MINIMAL ASSIST. NSR ON MONITOR WITH RATE IN 80S. SBP 90S-120S. PT DENIES CP. PT HAS PRODUCTIVE COUGH WITH CLEAR/BROWN/RED SPUTUM. PT C/O HEADACHE DUE TO COUGHING. ENCOURAGED TO USE INCENTIVE SPIROMETER. HE IS ON 2L NC. PT REFUSED ALL MEALS, MEAL OPTIONS, AND SUPPLEMENTS TODAY. HE HAS DRANK WATER AND PEPSI. EXPLAINED IMPORTANCE OF NUTRITION TO PT. PT VOIDS KRISTA URINE. PICC DRESSING CHANGED THIS SHIFT. TRANSITIONED TO PCU STATUS. BED IN LOW POSITION AND CALL LIGHT WITHIN REACH.
--- NOTE | 2023-04-04 19:41 | NUR ---
ASSUMED CARE PT IS A&O; SPO2 >92% ON 2L NC; MAP >65; NSR IN THE 70'S. PT DENIES CP, SOB, OR NAUSEA AND STATES THAT HE FEELS BETTER THAN HE DID YESTERDAY.
--- NOTE | 2023-04-04 20:51 | NUR ---
UPDATE PT TRANSFERRED TO PCU 19 W/ BELONGINGS/MEDICATIONS.
--- NOTE | 2023-04-04 21:27 | NUR ---
ASSUMPTION OF CARE: PATIENT IS A TRANSFER FROM ICU 11. REPORT WAS RECIEVED BY IVIS HUDDLESTON rn. NO CONCERNS FROM EITHER NURSES. PATIENT HAS BEEN ALERT AND ORIENTED X 4 WITH NO CONCERNS AT THIS TIME. DENIES CHEST PAIN PRESSURE OR SOB. PATIENT HAS BEEN SLEEPING SINCE RECIEVING HIM, 2L VIA NC. PATIENT PLEASEANT AND COOPERATIVE WITH CARE. WILL CONTINUE TO MONIOTOR UNTIL SHIFT CHANGE. OF NOTE. IVIS HUDDLESTON BROUGHT UP NEED FOR DIG LEVEL THIS COMING AM WILL RECOMMEND IF NOT ORDERED FOR AM LABS.
[2023-04-05 02:54] VITALS: BP 97/56
--- NOTE | 2023-04-05 06:34 | NUR ---
EOS: ONLY CHANGES FROM ASSUMPTION OF CARE IS BLOOD PRESSURE MAP SLOWLY OVER THE SHIFT WAS VERY MINIMALLY TRENDING LOWER, 1 X DOSE OF PRN MIDODRINE THIS AM TO MAINTAIN MAP >65. PATIENT ADELAIDA MAP 74. PATIETN BLADDER SCANNED DUE TO SMALLER FREQUENT VOIDS, 194 VISUALIZED, OTHER THAN THAT 3L FOR SPO2 >96%. PATIENT IN NO SIGN OF ACUTE DISTRESS.
[2023-04-05 10:14] VITALS: BP 109/90
--- NOTE | 2023-04-05 11:42 | NUR ---
PT IS EASILY AGITATED THIS MORNING. DURING ASSESSMENT PT BEGAN SHOUTING AT TECH DEMANDING THAT PEPSI BE SERVED TO HIM. PT ANSWERS QUESTIONS WITH THIS RN IN SHORT SENTENCES WITH PRESSURED SPEECH. PT UP TO BEDSIDE COMMODE, WITH AMBULATION PT APPEARS SOB, BUT DENIES ANY SOB. PT DOES NOT DESATURATE WHEN OXYGEN IS ON WITH AMBULATION, BUT IF HE REMOVES OXYGEN TO AMBULATE HE DOES DESATURATE, PT DOES BECOME ANGRY WHEN ASKED TO LEAVE OXYGEN ON WITH AMBULATION BUT WHEN HE DID REMOVE OXYGEN TO AMBULATE AGAINST ADVICE OF STAFF, HE BECAME ANXIOUS AND MORE AGITATED. PT NOW AGREES TO LEAVE OXYGEN IN PLACE. PT IS CURRENTLY RECEIVING 2 OF 3 ANTIBIOTICS THAT ARE INFUSING THROUGH PICC LINE. VSS. LS ARE COARSE TO DIMENISHED T/O. PT IS UP WITH 1 PERSON ASSIST TO BEDSIDE COMMODE.
--- NOTE | 2023-04-05 12:51 | NUR ---
PT EDCUATED ON FIRE REDUCTION RISK, DENIES IGNITION SOURCES
[2023-04-05 15:13] VITALS: BP 103/63
--- NOTE | 2023-04-05 15:15 | NUR ---
REPORT TO FELIX GARCIA ON MEDICAL FLOOR WHO WILL ASSUME PT CARE
--- NOTE | 2023-04-05 15:34 | NUR ---
U 19 TO 362 PT REPORT RECEIVED. PT ARRIVED VIA W/C ACCOMPANIED BY OXYGEN SYSTEM TESTER. PT COOPERATIVE AT THIS TIME. OREINTED TO NEW ROOM. BED ALARM ON. MILD SOB WITH TRANSFERING NOTED. CONTINUE POC.
--- NOTE | 2023-04-05 16:22 | NUR ---
NOTE BED ALARM RANG. NO CALL FROM PT. FOUND PT IN BATHROOM, NAKED. HE TOOK OFF HIS GOWN, TELEMETRY AND OXYGEN. GIAT UNSTEADY. REMINDED HIM TO USE THE CALL LIGHT. REDRESSED, TELE PUT BACK ON. CONTINUE POC.
[2023-04-05 19:08] VITALS: BP 98/62
[2023-04-05 20:56] VITALS: BP 95/50
[2023-04-05 21:01] VITALS: BP 120/74
--- NOTE | 2023-04-06 03:49 | NUR ---
SHIFT SUMMERY. PT A LITTLE GRUMPY BUT SEEMED COOPREATIVE. PT OUT OF BED WITH OUT USING CALL LIGHT. PT NOT STEADY ON FEET DUE TO MEDICATION. BED ALRM ON. CALL LIGHT IN REACH . FIRE SAFETY REVIEWED.
[2023-04-06 04:59] VITALS: BP 109/57
[2023-04-06 07:37] VITALS: BP 101/58
--- NOTE | 2023-04-06 10:35 | NUR ---
FAMILY PROLONGED PHONE CONVERSATION WITH PT EX . PT GAVE VERBAL CONSENT TO SHARE WITH HER. DR ABARCA TALKED WITH HECTOR, PT SON. PT LIVES LOCAL WITH NO SUPPORT. DOGS ARE AT [place]. HIS MOTHER WHO IS 102 RESIDES IN SENIOR CARE IN [place]. FAMILY, KIDS ARE DOWN IN [facility]. FAMILY HAS NOTED THAT OVER THE LAST COUPLE MONTHS HE HAS BEEN GETTING MORE WITHDRAWN AND THEIR PHONE CONVERSATIONS HAVE BEEN CONFUSED. EX IS REQUESTING A CALL : MINDI DINH AT [phone] FROM [facility] TOMORROW. CONTINUE POC.
[2023-04-06 12:07] LABS: Vancomycin, Trough 5.6 ug/mL (5.0-10.0)
--- NOTE | 2023-04-06 13:35 | NUR ---
FREQUENT SMALL VOIDSVOID OF 100 ML OF KRISTA URINE. POST VOID RESIDUAL 230 ML. CONTINUE POC.
--- NOTE | 2023-04-06 16:55 | NUR ---
TRANSFER TO RM 347 PT TRANSFERED TO RM 347 IN SCU UNIT D/T HIS FREQUENT JUMPING OOB AND BEING VERY WEAK AND UNSTEADY. HE KNOWS HOW TO USE THE CALL LIGHT BUT REFUSES TO CALL WHEN HE WANTS TO GET UP BUT HE CALLS FOR DIET PEPSI. REPORT GIVEN TO YOON GARCIA. PT TRANSFERED VIA BED WITH HIS BELONGINGS. CONTINUE POC.
--- NOTE | 2023-04-06 18:31 | NUR ---
FAMILY CALL FIELDED A CALL FROM HECTOR AND HIS MOTHER CONCERNING PT. THEY WERE DEMANDING FAXED RECORDS TO THEIR FAMILY NURSING HOME ASSISTANT. REFERRED THEM TO [facility] ON FRIDAY. EX ARRIVING FRIDAY. HECTOR ON FRIDAY TO ARRIVE. REMINDED THEM THAT HECTOR WAS THE NEXT OF KIN AND LEGAL. EX /SISTER ARE AWARE. HECTOR WANTS CARE MANAGEMENT TO HELP HIM FILL OUT POWER OF DECORATIVE [employer] C[employer] FOR DAD. THEY ALSO WERE INQUIRING ABOUT TRANSFERING TO [facility]. BECAUSE HIS BEHAVIOR IS NOT NORMAL FOR HIM. EX DID RELATE THAT PT HAS BEEN MORE CONFUSED OVER THE LAST 6+ MONTHS. CONTINUE POC.
--- NOTE | 2023-04-06 18:37 | NUR ---
DAY SHIFT SUMMARY: A&Ox4. HAS BEEN IN BED SINCE TRANSFER SCU AT 1700. REFUSED DINNER. BED ALARM ON. HAS NOT SHOWN ANY IMPULSIVENESS SINCE ARRIVING TO SCU. REPORT TO ONCOMING RN.
[2023-04-06 19:39] VITALS: BP 104/57
[2023-04-07 05:46] VITALS: BP 115/59
[2023-04-07 06:28] LABS: Bun/Creatinine Ratio 17.6 (12.0-20.0); Calcium, Blood 8.5 mg/dL (8.5-10.1); Creatinine, Blood 0.8 mg/dL (0.60-1.20)
[2023-04-07 07:22] VITALS: BP 107/46
[2023-04-07 07:39] LABS: Hematocrit 22.9 % (37.0-53.0); Hemoglobin 8.1 g/dL (13.5-17.5); Mean Corpuscular HGB 31.9 pg (26.0-34.0); Mean Corpuscular HGB Conc 35.4 g/dL (31.5-36.5); Mean Corpuscular Volume 90 fL (80-100); Mean Platelet Volume 12.4 fL (9.1-12.4); RDW Standard Deviation 45.9 fL (35.1-46.3); Red Blood Cell Count 2.54 M/mm3 (4.30-5.90)
[2023-04-07 07:44] LABS: Platelet Count 37 K/mm3 (150-400)
[2023-04-07 08:16] LABS: BAND PERCENT MAN 1 % (0-8); BASOPHILS PERCENT MAN 0 % (0-2); EOSINOPHILS PERCENT MAN 0 % (0-6); LYMPHOCYTES % ATYPICAL MANUAL 2 % (0-0); LYMPHOCYTES ABSOLUTE MAN 1.06 K/mm3 (0.84-5.20); LYMPHOCYTES PERCENT MAN 39 % (21-46); MONOCYTES ABSOLUTE MAN 0.49 K/mm3 (0.16-1.47); MONOCYTES PERCENT MAN 19 % (4-13); NEUTROPHILS ABSOLUTE MAN 1.04 K/mm3 (1.96-9.15); SEG NEUTROPHILS PERCENT MAN 39 % (41-73); TOTAL CELLS COUNTED 100
[2023-04-07 15:59] VITALS: BP 101/64
--- NOTE | 2023-04-07 17:27 | NUR ---
SHIFT SUMMARY- PT HAS SLEPT INTERMITENTLY THROUGHOUT THIS SHIFT. HE IS IMPULSIVE AND HAS BEEN GETTING UP WITHOUT USING HIS CALL LIGHT, BED ALARM IS ON. SPOKE TO HIS EX ON THE PHONE TO UPDATE. HE REFUSED TO WORK WITH OT THIS SHIFT. HIS BED IS IN THE LOW POSITION AND CALL LIGHT IS WITHIN REACH. CARDIOLOGY SAW PT THIS EVENING
[2023-04-07 20:18] VITALS: BP 101/62
[2023-04-07 23:46] VITALS: BP 109/66
[2023-04-08 00:12] LABS: Hematocrit 27.9 % (37.0-53.0); Hemoglobin 9.7 g/dL (13.5-17.5)
[2023-04-08 04:58] LABS: Source, Urine Voided
[2023-04-08 05:05] LABS: Appearance, Urine Clear (Clear); Bilirubin, Urine Neg (Neg); Blood, Urine 5+ (Neg); Color, Urine Amber (P-Yellow); Glucose Qualitative, Urine Neg (Neg); Ketones, Urine Neg (Neg); Leukocyte Esterase, Urine Neg (Neg); Nitrite, Urine Neg (Neg); Protein, Urine 2+ (Neg); Specific Gravity, Urine 1.015 (1.003-1.022); Urobilinogen, Urine NORM (Normal)
[2023-04-08 05:12] LABS: Granular Casts 0-2 /lpf (0); Mucus Heavy (0-Heavy); Squamous Epithelial Cells Rare /hpf (Few)
[2023-04-08 05:13] LABS: Bacteria Rare /hpf; Red Blood Cells, Urine TNTC /hpf (0-2); White Blood Cells, Urine 0-2 /hpf (0-5)
[2023-04-08 05:39] LABS: Hematocrit 25.4 % (37.0-53.0); Hemoglobin 8.9 g/dL (13.5-17.5); Mean Corpuscular Volume 91 fL (80-100); RDW Standard Deviation 46.9 fL (35.1-46.3); Red Blood Cell Count 2.78 M/mm3 (4.30-5.90); White Blood Cell Count 2.43 K/mm3 (4.00-11.30)
--- NOTE | 2023-04-08 05:39 | NUR ---
END OF SHIFT SUMMARY PT IMPULSIVE, GETS UP OOB ON HIS OWN, BED ALARM SET FOR SAFETY. A&O x2. NO BEHAVIORS NOTED OVER NIGHT, PT CALM AND COOPERATIVE WITH CARE PROVIDED. PT ON 3L OF O2 VIA NC. PT TRANSFERED WITH 1P ASSIST, FWW AND GB USED PT'S GAIT WAS UNSTEADY. PT VOIDED USING URINAL, SMALL AMOUNT OF BLOOD WAS NOTED. PROVIDING PHYSICIAN WAS NOTIFIED AND UA WAS ORDERED. NO C/O PAIN OR DISCOMFORT WHILE URINATING. CALL LIGHT WITHIN REACH, WCTM.
[2023-04-08 05:45] LABS: Platelet Count 28 K/mm3 (150-400)
[2023-04-08 05:54] LABS: Bun/Creatinine Ratio 18.5 (12.0-20.0); Calcium, Blood 8.6 mg/dL (8.5-10.1); Creatinine, Blood 0.86 mg/dL (0.60-1.20); Potassium, Blood 3.7 mmol/L (3.5-5.5)
[2023-04-08 06:20] LABS: BAND PERCENT MAN 2 % (0-8); BASOPHILS PERCENT MAN 0 % (0-2); EOSINOPHILS ABSOLUTE MAN 0.04 K/mm3 (0.00-0.68); EOSINOPHILS PERCENT MAN 2 % (0-6); LYMPHOCYTES % ATYPICAL MANUAL 1 % (0-0); LYMPHOCYTES ABSOLUTE MAN 1.26 K/mm3 (0.84-5.20); LYMPHOCYTES PERCENT MAN 51 % (21-46); MONOCYTES ABSOLUTE MAN 0.58 K/mm3 (0.16-1.47); MONOCYTES PERCENT MAN 24 % (4-13); NEUTROPHILS ABSOLUTE MAN 0.53 K/mm3 (1.96-9.15); SEG NEUTROPHILS PERCENT MAN 20 % (41-73); TOTAL CELLS COUNTED 100
[2023-04-08 07:15] VITALS: BP 129/59
[2023-04-08 15:46] VITALS: BP 152/91
[2023-04-08 16:09] VITALS: BP 124/63
[2023-04-08 17:48] VITALS: BP 108/79
--- NOTE | 2023-04-08 18:04 | NUR ---
SHIFT SUMMARY PT SLEEPING MOST OF THE DAY. UP TO CHAIR WITH 1 PERSON ASSIST. ONCE PT GOT HIMSELF UP AND WAS CAUGHT CARRYING HIS FWW AND HIS KNEE ON THE CHAIR LEANING FORWARD. PHYSICIAN PRACTICE CONSULTANT PUT A GAIT BELT ON TO BETTER ASSIST PT BUT HE CONTINUED TO GO TOWARD THE FLOOR. PHYSICIAN PRACTICE CONSULTANT EASED PT TO FLOOR TO 1 KNEE AND THEN PT STOOD BACK UP WITH CNAS GUIDANCE. EX AND FRIEND IN TO VISIT THIS AFTERNOON BUT PT TOLD THEM TO LEAVE. APPARENTLY SON TO BE COMING FROM [place] TOMORROW. NO FEVER NOTED TODAY. NOT EATING MOST OF FOOD GIVEN/OFFERED.
[2023-04-08 20:37] LABS: Adenovirus Not Detected (NOT DETECT); Bordetella pertussis Not Detected (NOT DETECT); Chlamydophila pneumoniae Not Detected (NOT DETECT); Coronavirus 229E Not Detected (NOT DETECT); Coronavirus HKU1 Not Detected (NOT DETECT); Coronavirus NL63 Not Detected (NOT DETECT); Coronavirus OC43 Not Detected (NOT DETECT); Human Metapneumovirus Not Detected (NOT DETECT); Human Rhinovirus/Enterovirus Not Detected (NOT DETECT); Influenza A/2009-H1 Not Detected (NOT DETECT); Influenza A/H1 Not Detected (NOT DETECT); Influenza A/H3 Not Detected (NOT DETECT); Influenza B Not Detected (NOT DETECT); Mycoplasma pneumoniae Not Detected (NOT DETECT); Parainfluenza Virus 1 Not Detected (NOT DETECT); Parainfluenza Virus 2 Not Detected (NOT DETECT); Parainfluenza Virus 3 Not Detected (NOT DETECT); Parainfluenza Virus 4 Not Detected (NOT DETECT); Respiratory Syncytial Virus Not Detected (NOT DETECT); SARS-Cov-2 (COVID-19), BioFire Not Detected (NOT DETECT)
[2023-04-08 21:12] VITALS: BP 80/46
[2023-04-08 22:31] VITALS: BP 104/56
--- NOTE | 2023-04-09 00:12 | NUR ---
2111: PT'S BP WAS 80/46 AND HR WAS 81. PT ASYMPTOMATIC, PT DENIED BLURRY VISION, LIGHTHEADEDNESS/DIZZINESS, NO NAUSEA OR VOMITING, NO CHANGES TO MENTAL STATUS, ETC. WCTM. 2229: PT'S BP RECHECK IMPROVED BP 104/56 AND HR 83. THERE IS ONE LAST DOSE OF MIDODRINE AVAILABLE IF PT BECOMES HYPOTENSIVE. WILL CHECK BP ONCE MORE ON THIS SHIFT. 0015: PT RESTING COMFORTABLY IN BED, FOOT OF BED ELEVATED. WC FOR ANY CHANGES TO VS. CALL LIGHT WITHIN REACH, PT IS ENCOURAGED TO CALL FOR HELP WITH ALL TRANSFERS. PT DENIES INJURIES FROM YESTERDAY'S ASSIST TO GROUND FALL. PT WEARING YELLOW GOWN.
--- NOTE | 2023-04-09 04:39 | NUR ---
END OF SHIFT SUMMARY PT SLEPT WELL OVERNIGHT. PT ENCOURAGED TO USE CALL LIGHT FOR ALL TRANSFERS. PT WEARING APPROPRIATE YELLOW GOWN AFTER HAVING AN ASSIST TO THE GROUND FALL YESTERDAY ON DAY SHIFT. NO C/O PAIN OR DISCOMFORT, NO INJURIES REPORTED. BP SOFT, PT ON 2L VIA NC. RESP EASY AND UNLABORED, NO SIGNS OF RESP DISTRESS. COUGH IS PRESENT, LUNG SOUNDS DIMINISHED BILATERALLY. MIXED INCONTINENCE, CARE STAFF ASSISTED WITH ONE TOTAL BED CHANGE--1 EPISODE OF INCONT. PT 1P ASSIST TO BATHROOM, WITH FWW AND GB. PT PLEASANT AND COOPERATIVE WITH CARE PROVIDED. PT A&O x2-3. CALL LIGHT WITHIN REACH, WCTM.
[2023-04-09 05:06] VITALS: BP 115/63
[2023-04-09 05:31] LABS: Hematocrit 24.2 % (37.0-53.0); Hemoglobin 8.4 g/dL (13.5-17.5); Mean Corpuscular HGB 32.1 pg (26.0-34.0); Mean Corpuscular HGB Conc 34.7 g/dL (31.5-36.5); Mean Corpuscular Volume 92 fL (80-100); RDW Coefficient Variation 13.9 % (11.7-14.2); RDW Standard Deviation 46.7 fL (35.1-46.3); Red Blood Cell Count 2.62 M/mm3 (4.30-5.90); White Blood Cell Count 2.17 K/mm3 (4.00-11.30)
[2023-04-09 05:40] LABS: Platelet Count 24 K/mm3 (150-400)
[2023-04-09 05:57] LABS: Albumin, Blood 2.2 g/dL (3.4-5.0); Albumin/Globulin Ratio 0.5 (0.8-1.8); Bilirubin, Total 1.1 mg/dL (0.1-1.0); Bun/Creatinine Ratio 17.2 (12.0-20.0); Calcium, Blood 8.5 mg/dL (8.5-10.1); Creatinine, Blood 0.87 mg/dL (0.60-1.20); Globulin, Blood 4.6 g/dL (2.2-4.0); Potassium, Blood 3.5 mmol/L (3.5-5.5); Total Protein, Blood 6.8 g/dL (6.4-8.2)
[2023-04-09 06:14] LABS: BAND PERCENT MAN 1 % (0-8); BASOPHILS PERCENT MAN 0 % (0-2); EOSINOPHILS PERCENT MAN 5 % (0-6); LYMPHOCYTES % ATYPICAL MANUAL 3 % (0-0); LYMPHOCYTES ABSOLUTE MAN 1.67 K/mm3 (0.84-5.20); LYMPHOCYTES PERCENT MAN 74 % (21-46); METAMYELOCYTE ABSOLUTE MAN 0.02 K/mm3 (0.00-0.00); METAMYELOCYTE PERCENT MAN 1 % (0-0); MONOCYTES ABSOLUTE MAN 0.08 K/mm3 (0.16-1.47); MONOCYTES PERCENT MAN 4 % (4-13); NEUTROPHILS ABSOLUTE MAN 0.28 K/mm3 (1.96-9.15); SEG NEUTROPHILS PERCENT MAN 12 % (41-73); TOTAL CELLS COUNTED 100
[2023-04-09 07:43] VITALS: BP 105/55
[2023-04-09 15:09] LABS: HIV AB/P24 AG SCREEN Non Reactive (Non Reactive)
--- NOTE | 2023-04-09 17:27 | NUR ---
Care Conference: Met with pt's son, ex- and sister in law. Son states he is very concerned about pt's health issues, and the fact he is not improving. He asked if there were any new development in transfer request, it doesn't appear so at this time. He states his desire for pt to remain a full code, as pt has also stated. We did discuss today what that means, and I gave family the booklet "Hard Choices for [employer]". Son is hopeful pt will be alert enough to sign POA paperwork tomorrow; will attempt to arrange hospital notary tomorrow if available. Reviewed current diagnoses with family and will continue with supportive visits. The son appeared visibly shaken today, states he is not just concerned, but scared as well. They do understand there are multiple tests being ran now, and multiple physicians involved in pt's care. Plan to visit pt tomorrow.
--- NOTE | 2023-04-09 18:02 | NUR ---
SHIFT SUMMARY PT UP TO TOILET WITH 1 PERSON ASSIST. BED ALARM ON DUE TO FALL RISK. YELLOW GOWN ON. MORE AWAKE TODAY THAN YESTERDAY. MORE COOPERATIVE WITH CARE. HAS EATEN A FEW BITES OF MEALS. DRANK PART ON ENSURES. STATES HE IS VERY TIRED AND MIDDAY WAS ACHY. SON AND FAMILY IN TO VISIT SEVERAL TIMES TODAY. NO RESP DISTRESS NOTED. TRIALED ON ROOM AIR THIS MORNING AND SATS 86% WHILE SLEEPING.
[2023-04-09 19:37] VITALS: BP 129/66
--- NOTE | 2023-04-10 04:21 | NUR ---
SHIFT SUMMARY PATIENT AOX3, FORGETFUL AT TIMES. IMPULSIVE AND NEEDS SOME QUEING. IV ABX INFUSED, TAKES MEDICATIONS WHOLE WITH WATER. VOIDING IN URINAL WITH ASSISTANCE. USES CALL LIGHT SPORADICALLY. BED ALARM ON VSS.
[2023-04-10 05:09] VITALS: BP 91/54
[2023-04-10 06:12] LABS: Hematocrit 27.6 % (37.0-53.0); Hemoglobin 9.6 g/dL (13.5-17.5); Mean Corpuscular HGB 32.2 pg (26.0-34.0); Mean Corpuscular HGB Conc 34.8 g/dL (31.5-36.5); Mean Corpuscular Volume 93 fL (80-100); RDW Standard Deviation 46.8 fL (35.1-46.3); Red Blood Cell Count 2.98 M/mm3 (4.30-5.90); White Blood Cell Count 2.18 K/mm3 (4.00-11.30)
[2023-04-10 06:18] LABS: Platelet Count 15 K/mm3 (150-400)
[2023-04-10 06:33] LABS: Albumin, Blood 2.1 g/dL (3.4-5.0); Albumin/Globulin Ratio 0.5 (0.8-1.8); Bun/Creatinine Ratio 18.8 (12.0-20.0); Calcium, Blood 8.3 mg/dL (8.5-10.1); Creatinine, Blood 0.69 mg/dL (0.60-1.20); Globulin, Blood 4.6 g/dL (2.2-4.0); Potassium, Blood 3.9 mmol/L (3.5-5.5); Total Protein, Blood 6.7 g/dL (6.4-8.2)
[2023-04-10 07:15] VITALS: BP 109/67
[2023-04-10 07:38] LABS: BAND PERCENT MAN 2 % (0-8); BASOPHILS ABSOLUTE MAN 0.04 K/mm3 (0.00-0.23); BASOPHILS PERCENT MAN 2 % (0-2); EOSINOPHILS ABSOLUTE MAN 0.26 K/mm3 (0.00-0.68); EOSINOPHILS PERCENT MAN 12 % (0-6); LYMPHOCYTES ABSOLUTE MAN 1.26 K/mm3 (0.84-5.20); LYMPHOCYTES PERCENT MAN 58 % (21-46); MONOCYTES ABSOLUTE MAN 0.37 K/mm3 (0.16-1.47); MONOCYTES PERCENT MAN 17 % (4-13); NEUTROPHILS ABSOLUTE MAN 0.23 K/mm3 (1.96-9.15); SEG NEUTROPHILS PERCENT MAN 9 % (41-73); TOTAL CELLS COUNTED 100
[2023-04-10 08:13] LABS: EBV AB VCA, IGG >600.0 U/mL (0.0-17.9)
[2023-04-10 10:47] VITALS: BP 102/50
[2023-04-10 11:08] VITALS: BP 100/65
[2023-04-10 11:52] VITALS: BP 102/52
[2023-04-10 11:54] VITALS: BP 102/52
[2023-04-10 13:09] LABS: ANA DIRECT Negative (Negative); ANTI-DNA (DS) AB QN 1 IU/mL (0-9); RNP ANTIBODIES 0.2 AI (0.0-0.9); SJOGREN'S ANTI-SS-A <0.2 AI (0.0-0.9); SJOGREN'S ANTI-SS-B <0.2 AI (0.0-0.9); SMITH ANTIBODIES <0.2 AI (0.0-0.9)
--- NOTE | 2023-04-10 13:45 | NUR ---
REPORT CALLED TO LEIF AT [facility]. [facility] HERE TO PICK PT UP. FAMILY CAME IN EARLIER IN DAY AND ASSISTED WITH SIGNING FORMS FOR [place]. PT LEFT WITH CLOTHING AND PHONE. [facility] PERSON ASSIST. STATED MILD FEELING OF DIZZINESS WITH TRANSFER. FAMILY AWARE OF TRANSFER.
[2023-04-12 15:07] LABS: QUANTIFERON MITOGEN VALUE 1.53 IU/mL (.); QUANTIFERON NIL VALUE 0.01 IU/mL (.); QUANTIFERON-TB GOLD PLUS Negative (Negative)
[2023-04-14 14:10] LABS: ANTIMYELOPEROXIDASE (MPO) ABS <0.2 units (0.0-0.9); ANTIPROTEINASE 3 (PR-3) ABS <0.2 units (0.0-0.9); ATYPICAL PANCA <1:20 titer (Neg:<1:20); CYTOPLASMIC (C-ANCA) <1:20 titer (Neg:<1:20); PERINUCLEAR (P-ANCA) <1:20 titer (Neg:<1:20)
== END 2023-04-10 13:29 | disposition short-term general hospital (02) | DRG 280 ==
LOC: ER 13:34 → MEDS 16:07 → ICUE 16:07 → MEDS 17:39 → ICUE 23:26 → PCU 04-04 20:39 → MEDS 04-05 15:28
PROVIDERS: Emergency Medicine; Hospitalist; Internal Medicine; Internal Medicine Critical Care Medicine; Nurse Practitioner Acute Care; Student in an Organized Health Care Education/Training Program; ADMIT Internal Medicine
PROC: 3E033XZ Introduction of Vasopressor into Peripheral Vein, Percutaneous Approach (ICD-10-PCS; 2023-04-03)
PROC: 079T3ZX Drainage of Bone Marrow, Percutaneous Approach, Diagnostic (ICD-10-PCS; principal; 2023-04-10)
DX: I11.0 Hypertensive heart disease with heart failure (principal); I21.4 Non-ST elevation (NSTEMI) myocardial infarction; I50.33 Acute on chronic diastolic (congestive) heart failure; J18.9 Pneumonia, unspecified organism; J96.01 Acute respiratory failure with hypoxia; D84.9 Immunodeficiency, unspecified; D61.818 Other pancytopenia; I24.8 Other forms of acute ischemic heart disease; R04.2 Hemoptysis; Z66 Do not resuscitate; E78.5 Hyperlipidemia, unspecified; E03.9 Hypothyroidism, unspecified; J43.9 Emphysema, unspecified; I73.9 Peripheral vascular disease, unspecified; D64.9 Anemia, unspecified; I25.10 Atherosclerotic heart disease of native coronary artery without angina pectoris; Z20.822 Contact with and (suspected) exposure to COVID-19; F41.9 Anxiety disorder, unspecified; I48.0 Paroxysmal atrial fibrillation; B95.8 Unspecified staphylococcus as the cause of diseases classified elsewhere; I95.9 Hypotension, unspecified; E87.6 Hypokalemia; R33.9 Retention of urine, unspecified; Z98.890 Other specified postprocedural states; Z86.73 Personal history of transient ischemic attack (TIA), and cerebral infarction without residual deficits; Z88.8 Allergy status to other drugs, medicaments and biological substances; Z87.891 Personal history of nicotine dependence; Z79.899 Other long term (current) drug therapy; Z87.11 Personal history of peptic ulcer disease; Z88.2 Allergy status to sulfonamides; Z91.148 Patient's other noncompliance with medication regimen for other reason; Z86.74 Personal history of sudden cardiac arrest
CPT/HCPCS: 0202U; 36415; 36430; 36569; 70450; 71045; 71250; 71260; 74176; 80048; 80053; 80202; 81001; 82607; 82728; 82746; 83516; 83520; 83540; 83550; 83605; 83735; 83880; 84484; 85014; 85018; 85025; 85027; 85060; 85097; 85379; 85610; 85651; 85730; 86037; 86200; 86225; 86235; 86430; 86480; 86665; 86850; 86870; 86880; 86900; 86901; 87040; 87070; 87077; 87205; 87389; 87449; 87633; 92610; 93005; 93010; 93308; 93321; 94640; 94760; 94762; 97110; 97116; 97162; 97164; 97166; 97530; 97535; 99285-25; A9270; C1751; J0456; J0696; J1160; J1940; J2185; J2930; J2997; J3370; J3480; J7030; J7050; J7060; P9035; Q9967

== ENCOUNTER 2023-05-07 14:29 | Inpatient (IN) | payer OTHER ==
[2023-05-07] VITALS (21 sets, daily range): BP systolic 69–93; BP diastolic 46–66
[~2023-05-07] VITALS: Ht 182.9 cm; Wt 79.4 kg
[2023-05-07 15:10] LABS: Base Excess Venous -11.4 mmol/L; Bicarbonate Venous 15.8 mmol/L (24.0-30.0); PCO2 Venous 33.6 mmHg (38-42); pH Blood Venous 7.27 (7.34-7.37)
[2023-05-07 15:15] LABS: BASOPHILS ABSOLUTE AUTO 0.04 K/mm3 (0.00-0.23); BASOPHILS PERCENT AUTO 1 % (0-2); EOSINOPHILS ABSOLUTE AUTO 0.02 K/mm3 (0.00-0.68); EOSINOPHILS PERCENT AUTO 1 % (0-6); Hematocrit 27.6 % (37.0-53.0); Hemoglobin 9.3 g/dL (13.5-17.5); IMMATURE GRAN ABSOLUTE AUTO 0.09 K/mm3 (0.00-0.10); IMMATURE GRAN PERCENT AUTO 3 % (0-1); LYMPHOCYTES ABSOLUTE AUTO 1.18 K/mm3 (0.84-5.20); LYMPHOCYTES PERCENT AUTO 36 % (21-46); MONOCYTES ABSOLUTE AUTO 0.99 K/mm3 (0.16-1.47); MONOCYTES PERCENT AUTO 31 % (4-13); Mean Corpuscular HGB 31.1 pg (26.0-34.0); Mean Corpuscular HGB Conc 33.7 g/dL (31.5-36.5); Mean Corpuscular Volume 92 fL (80-100); NEUTROPHILS ABSOLUTE AUTO 0.92 K/mm3 (1.96-9.15); NEUTROPHILS PERCENT AUTO 28 % (41-73); NRBC ABSOLUTE 0.02 K/mm3 (0.00-0.02); NRBC Auto 0.6 /100 WBC (0.0-0.2); RDW Coefficient Variation 17.5 % (11.7-14.2); RDW Standard Deviation 58.9 fL (35.1-46.3); Red Blood Cell Count 2.99 M/mm3 (4.30-5.90); White Blood Cell Count 3.24 K/mm3 (4.00-11.30)
[2023-05-07 15:19] LABS: Platelet Count 7 K/mm3 (150-400)
[2023-05-07 15:41] LABS: Albumin, Blood 2.4 g/dL (3.4-5.0); Albumin/Globulin Ratio 0.5 (0.8-1.8); Bilirubin, Total 1.2 mg/dL (0.1-1.0); Bun/Creatinine Ratio 21.4 (12.0-20.0); Calcium, Blood 8.9 mg/dL (8.5-10.1); Creatinine, Blood 1.03 mg/dL (0.60-1.20); Globulin, Blood 4.7 g/dL (2.2-4.0); Potassium, Blood 5.2 mmol/L (3.5-5.5); Total Protein, Blood 7.1 g/dL (6.4-8.2)
--- NOTE | 2023-05-07 19:01 | NUR ---
PT ARRIVED TO ICU 11 FROM ER. NEOSYNEPHRINE AT 20MCQ/MIN INCREASED TO 40 MCQ/MIN. LR STARTED AT 125 ML/HR. PT ARRIVED VIA GURNEY. A&O, MOVES ALL EXT WELL. TRANSFERED TO BED BY STAFF WITH SLIDER SHEET. DENEIS PAIN OR DISCOMFORT AT THIS TIME. PT ON 3 LITERS O2 VIA NC. RESP EVEN AND NONLABORED. DR LY AT BEDSIDE. PT VERY [place]UT.
[2023-05-07 19:52] LABS: Source, Urine Clean Catch
[2023-05-07 19:52] LABS: Base Excess Venous -5.3 mmol/L; Bicarbonate Venous 20.5 mmol/L (24.0-30.0); PCO2 Venous 33.2 mmHg (38-42); pH Blood Venous 7.38 (7.34-7.37)
[2023-05-07 20:03] LABS: Appearance, Urine Clear (Clear); Bilirubin, Urine Neg (Neg); Blood, Urine 1+ (Neg); Color, Urine Yellow (P-Yellow); Glucose Qualitative, Urine Neg (Neg); Ketones, Urine Neg (Neg); Leukocyte Esterase, Urine Neg (Neg); Nitrite, Urine Neg (Neg); Protein, Urine 2+ (Neg); Specific Gravity, Urine 1.015 (1.003-1.022); Urobilinogen, Urine NORM (Normal)
[2023-05-07 20:21] LABS: Hyaline Casts 0-2 /lpf (0-2); Red Blood Cells, Urine 0-2 /hpf (0-2); White Blood Cells, Urine 0-2 /hpf (0-5)
[2023-05-07 20:22] LABS: Bacteria Few /hpf; Squamous Epithelial Cells Rare /hpf (Few)
[2023-05-07 20:54] LABS: Influenza A, PCR NEGATIVE (NEGATIVE); Influenza B, PCR NEGATIVE (NEGATIVE); Resp Syncytial Virus, PCR NEGATIVE (NEGATIVE); SARS-Cov-2 (COVID-19) PCR, MMC NEGATIVE (NEGATIVE)
[2023-05-08] VITALS (92 sets, daily range): BP systolic 59–130; BP diastolic 44–93
[2023-05-08 03:21] LABS: Hematocrit 21.1 % (37.0-53.0); Mean Corpuscular HGB 31.1 pg (26.0-34.0); Mean Corpuscular HGB Conc 33.2 g/dL (31.5-36.5); Mean Corpuscular Volume 94 fL (80-100); RDW Coefficient Variation 17.2 % (11.7-14.2); RDW Standard Deviation 58.3 fL (35.1-46.3); Red Blood Cell Count 2.25 M/mm3 (4.30-5.90); White Blood Cell Count 1.47 K/mm3 (4.00-11.30)
[2023-05-08 03:32] LABS: Platelet Count 22 K/mm3 (150-400)
[2023-05-08 03:40] LABS: BAND PERCENT MAN 21 % (0-8); BASOPHILS PERCENT MAN 0 % (0-2); EOSINOPHILS ABSOLUTE MAN 0.02 K/mm3 (0.00-0.68); EOSINOPHILS PERCENT MAN 2 % (0-6); LYMPHOCYTES ABSOLUTE MAN 0.35 K/mm3 (0.84-5.20); LYMPHOCYTES PERCENT MAN 24 % (21-46); MONOCYTES PERCENT MAN 21 % (4-13); NEUTROPHILS ABSOLUTE MAN 0.77 K/mm3 (1.96-9.15); SEG NEUTROPHILS PERCENT MAN 32 % (41-73); TOTAL CELLS COUNTED 100
[2023-05-08 03:42] LABS: Albumin, Blood 2.1 g/dL (3.4-5.0); Albumin/Globulin Ratio 0.5 (0.8-1.8); Bun/Creatinine Ratio 18.1 (12.0-20.0); Calcium, Blood 7.6 mg/dL (8.5-10.1); Creatinine, Blood 1.05 mg/dL (0.60-1.20); Globulin, Blood 4.5 g/dL (2.2-4.0); Magnesium, Blood 1.8 mg/dL (1.6-2.4); Potassium, Blood 3.6 mmol/L (3.5-5.5); Total Protein, Blood 6.6 g/dL (6.4-8.2)
[2023-05-08 03:44] LABS: International Normalized Ratio 1.16; Prothrombin Time Results 12.1 Sec (9.7-11.5)
--- NOTE | 2023-05-08 06:24 | NUR ---
SHIFT SUMMARY PATIENT TO ROOM FROM ER AT 1840, REPORT FROM JASMEET GARCIA. DR. LY AT BEDSIDE AT START OF SHIFT, CONSIDERED CENTRAL LINE PLACEMENT BUT PATIENT AND HIS SON OPTED TO HAVE PRESSURE INFUSED THROUGH PERIPHERAL LINE FOR NOW. PLATELETS INFUSED AT START OF SHIFT. PATIENT LETHARGIC BUT ORIENTED X4. 02 SATS 94% ON 4L VIA NC, PATIENT STARTED COUGHING UP GREEN MUCOUS WITH SOME DARK RED. DENIES SOB. HR SR 70s MOST THE NIGHT, WAS IN A.FIB BRIEFLY. BP HYPOTENSIVE, NEOP WAS INFUSING AT START OF SHIFT, SWITCHED TO LEVOPHED AND ABLE TO TITRATE DOWN THROUGH THE NIGHT. PATIENT ABLE TO VOID, DARK YELLOW URINE. NO BM THIS SHIFT. SON UPDATED SEVERAL TIMES. PATIENT INDEPENDENT WITH REPOSITIONING. CALL LIGHT IN REACH
[2023-05-08 09:23] LABS: Hematocrit 19.5 % (37.0-53.0); Hemoglobin 6.5 g/dL (13.5-17.5)
--- NOTE | 2023-05-08 09:23 | NUR ---
AM NOTE... ASSUMED CARE OF PT AT 0700, PT IS A&Ox4. HE IS ON LEVOPHED DRIP TO KEEP MAPS>65, THIS WAS STOPPED AT 0700, CURRENT MAPS ARE STILL >65. HE IS ON 2L NC WITH O2 SATS>95% THIS WAS STOPPED BUT THE PT'S O2 SATS DROPPED DOWN TO THE LOW 80'S. HE IS IN SR IN THE 70'S. L/S CLEAR T/O WITH COARSE BASES. BT PRESENT AND HYPOACTIVE, ABD IS SOFT AND NONTENDER TO PALPATION, PT HAS NOT HAD A BM SINCE ADMIT. HE WAS PLACED IN NEUTROPENIC PRECUATIONS. CALL LIGHT IN REACH WILL CONTINUE TO MONITOR.
--- NOTE | 2023-05-08 11:39 | NUR ---
PICC consent: Call placed to son, Timothy, per the patient's request to discuss PICC line placement. Discussed risks including bleeding at insertion site, infection, DVT, as well as benefits to PICC placement. Timothy states that he does not want the patient to receive a PICC line at this time, stating concern that patient would have a massive bleeding event during placement. Spoke with the patient and Dr. Vanessa about the son's refusal for PICC placement.
[2023-05-08 16:20] LABS: BASOPHILS PERCENT AUTO 0 % (0-2); EOSINOPHILS ABSOLUTE AUTO 0.01 K/mm3 (0.00-0.68); EOSINOPHILS PERCENT AUTO 0 % (0-6); Hematocrit 20.6 % (37.0-53.0); Hemoglobin 7.1 g/dL (13.5-17.5); IMMATURE GRAN ABSOLUTE AUTO 0.03 K/mm3 (0.00-0.10); IMMATURE GRAN PERCENT AUTO 1 % (0-1); LYMPHOCYTES ABSOLUTE AUTO 0.71 K/mm3 (0.84-5.20); LYMPHOCYTES PERCENT AUTO 23 % (21-46); MONOCYTES ABSOLUTE AUTO 0.37 K/mm3 (0.16-1.47); MONOCYTES PERCENT AUTO 12 % (4-13); Mean Corpuscular HGB 31.1 pg (26.0-34.0); Mean Corpuscular HGB Conc 34.5 g/dL (31.5-36.5); Mean Corpuscular Volume 90 fL (80-100); NEUTROPHILS ABSOLUTE AUTO 1.91 K/mm3 (1.96-9.15); NEUTROPHILS PERCENT AUTO 63 % (41-73); RDW Coefficient Variation 16.9 % (11.7-14.2); RDW Standard Deviation 55.8 fL (35.1-46.3); Red Blood Cell Count 2.28 M/mm3 (4.30-5.90); White Blood Cell Count 3.03 K/mm3 (4.00-11.30)
[2023-05-08 16:28] LABS: Platelet Count 47 K/mm3 (150-400)
--- NOTE | 2023-05-08 17:46 | NUR ---
SHIFT SUMMARY.... NO ACUTE NEGATIVE CHANGES NOTED SINCE PREVIOUS ASSESSMENT. THE PT'S VS CONTINUE TO BE STABLE, HE HAS BEEN ON LEVOPHED AT 2MCG THIS SHIFT TO KEEP MAPS>65, HE HAS BEEN ON 2-4L NC TO KEEP HIS O2 SATS>95%. A BLADDER SCAN WAS DONE D/T THE PT'S REQUEST AND HIS FREQUENT VOIDING SMALL AMOUNTS, THE BLADDER SCAN SHOWED 263MLS OF URINE. PER THE PT HE USED TO TAKE FLOW-MAX AT HOME. THE PT HAS NOT HAD A BM SINCE HE WAS ADMITTED. CALL LIGHT IN REACH WILL CONTINUE TO MONITOR UNTIL REPORT IS GIVEN TO ONCOMING RN.
--- NOTE | 2023-05-08 19:00 | NUR ---
ASSUMED CARE CARE OF PT ASSUMED AT 1900. REPORT GIVEN BY ELIGIO GARCIA. PT A/O X4, ABLE TO MAKE NEEDS KNOWN. PT ON 4 L N/L, O2 SATS> 92%. SBP 90s. PT ABLE TO REPOSITION SELF INDEPENDENTLY IN BED. NS TKO INFUSING THROUGH POWERGLIDE.
[2023-05-09] VITALS (16 sets, daily range): BP systolic 76–114; BP diastolic 57–79
[2023-05-09 04:31] LABS: Hematocrit 21.1 % (37.0-53.0); Hemoglobin 7.2 g/dL (13.5-17.5); Mean Corpuscular HGB 31.4 pg (26.0-34.0); Mean Corpuscular HGB Conc 34.1 g/dL (31.5-36.5); Mean Corpuscular Volume 92 fL (80-100); NRBC ABSOLUTE 0.02 K/mm3 (0.00-0.02); NRBC Auto 0.4 /100 WBC (0.0-0.2); RDW Coefficient Variation 16.8 % (11.7-14.2); RDW Standard Deviation 55.8 fL (35.1-46.3); Red Blood Cell Count 2.29 M/mm3 (4.30-5.90)
[2023-05-09 04:37] LABS: Platelet Count 54 K/mm3 (150-400)
[2023-05-09 04:50] LABS: Albumin/Globulin Ratio 0.4 (0.8-1.8); Bilirubin, Total 0.7 mg/dL (0.1-1.0); Bun/Creatinine Ratio 28.2 (12.0-20.0); Creatinine, Blood 0.92 mg/dL (0.60-1.20); Globulin, Blood 5.1 g/dL (2.2-4.0); Potassium, Blood 3.9 mmol/L (3.5-5.5); Total Protein, Blood 7.1 g/dL (6.4-8.2)
[2023-05-09 05:22] LABS: BAND PERCENT MAN 22 % (0-8); BASOPHILS PERCENT MAN 0 % (0-2); EOSINOPHILS PERCENT MAN 0 % (0-6); LYMPHOCYTES ABSOLUTE MAN 0.41 K/mm3 (0.84-5.20); LYMPHOCYTES PERCENT MAN 8 % (21-46); MONOCYTES ABSOLUTE MAN 0.31 K/mm3 (0.16-1.47); MONOCYTES PERCENT MAN 6 % (4-13); MYELOCYTE PERCENT MAN 2 % (0-0); NEUTROPHILS ABSOLUTE MAN 4.36 K/mm3 (1.96-9.15); SEG NEUTROPHILS PERCENT MAN 62 % (41-73); TOTAL CELLS COUNTED 100
--- NOTE | 2023-05-09 06:07 | NUR ---
SHIFT SUMMARY VAISHNAVI CONTINUES TO BE A/O X4. PT IS ABLE TO MAKE NEEDS KNOWN AND PARTICIPATE IN ACTIVE CONVERSATION. DURING THE SHIFT THE PT BEGAN TO COMPLAIN OF SOB AND ANXIETY. PT'S HOB WAS ELEVATED AND O2 ADJUSTED TO 4.5 LPM, RT WAS ALSO CALLED PER PT'S REQUEST TO USE INHALER. SINCE THEN, PT'S O2 SATS >92%. PT COMPLAINED OF COUGHING UP BRIGHT RED BLOOD, THIS ALSO WAS OCCURING PREVIOUS NOC SHIFT. PT WASN'T ABLE TO STATE THE AMOUNT SINCE EMESIS BAG WAS FROM PREVIOUS SHIFT, SO A NEW BAG WAS GIVEN. CARDIAC MONITORING HAS REFLECTED NSR, HR 90s, SBP 110s. PT DID NOT HAVE A BM THIS SHIFT. PT ABLE TO USE URINAL INDEPENDENTLY. NS TKO INFUSING THROUGH POWERGLIDE. WILL CONTINUE TO MONITOR UNTIL CARE IS TRANSITIONED TO DAY SHIFT.
--- NOTE | 2023-05-09 11:03 | NUR ---
ARRIVAL TO UNIT PT ARRIVED TO UNIT AT APPROX 1045. PT AMBULATED TO BED W/ 1P ASSIST. ABLE TO REPOSITION HIMSELF INDEPENDENTLY IN BED. VSS. CORSE WHEEZING AUSCULTATED BILATERAL UPPER LOBES, DIMINISHED LOWER. CURRENTLY ON 4L VIA NC, SATS >95%. PT AOX4, ORIENTED TO NEW UNIT/RM, RECEPTIVE TO EDUCATION. PT REQUESTING INHALER USE, RT NOTIFIED. NO OTHER NEEDS AT THIS TIME. CALL LIGHT WITHIN REACH.
[2023-05-09 12:59] LABS: Performing Lab BLOODWORKS; Test Name ABID
--- NOTE | 2023-05-09 17:10 | NUR ---
SHIFT SUMMARY NO ACUTE CHANGES SINCE ASSUMPTION OF CARE. PT CONTINUES TO BE AOX4, ABLE TO MAKE NEEDS KNOWN PRN AND PARTICIPATE IN CARE. VSS. TELEMETRY SHOWING SR 60'S. CURRENTLY ON 4L VIA NC, SATS >90%. DESATS W/ ACTIVITY, STEADILY RETURNS TO >90%. MODERATE HEMOPTYOSIS, TRANEXAMINC ACID NEBULIZATIONS BY RT IN PLACE. USES EMESIS BAG FOR SPUTUM. VOIDING W/ URINAL W/O ASSIST. NO BM THIS SHIFT. LACK OF APPETITE ASSESSED, SNACKS ENCOURAGED. HAS NOT BEEN UP SINCE TRANSFER, IS ABLE TO INDEPENDENTLY REPOSITION HIMSELF IN BED. CALL LIGHT IN REACH. WILL REPORT TO ONCOMING RN.
[2023-05-09 20:54] LABS: Vancomycin, Trough 7.4 ug/mL (5.0-10.0)
[2023-05-10 03:17] VITALS: BP 103/68
[2023-05-10 04:23] LABS: Hematocrit 23.9 % (37.0-53.0); Hemoglobin 7.8 g/dL (13.5-17.5); Mean Corpuscular HGB 30.8 pg (26.0-34.0); Mean Corpuscular HGB Conc 32.6 g/dL (31.5-36.5); Mean Corpuscular Volume 95 fL (80-100); NRBC ABSOLUTE 0.18 K/mm3 (0.00-0.02); NRBC Auto 1.7 /100 WBC (0.0-0.2); Platelet Count 90 K/mm3 (150-400); RDW Coefficient Variation 17.1 % (11.7-14.2); RDW Standard Deviation 57.5 fL (35.1-46.3); Red Blood Cell Count 2.53 M/mm3 (4.30-5.90); White Blood Cell Count 10.42 K/mm3 (4.00-11.30)
[2023-05-10 04:24] LABS: Mean Platelet Volume 13.6 fL (9.1-12.4)
--- NOTE | 2023-05-10 04:34 | NUR ---
SHIFT SUMMARY: PT ALERT AND ORIENTED X4, ABLE TO FOLLOW COMMANDS AND MAKE NEEDS KNOWN. [place]. STRENGTH WEAK, EQUAL BILATERALLY. COOPERATIVE WITH CARE. BP STABLE, HR SB 50'S, AFEBRILE, TITRATED DOWN TO 3L NC THIS SHIFT SPO2 >94%. RESPIRATIONS EVEN AND UNLABORED AT REST. PT STATES INCREASE WORK OF BREATHING WITH MOVEMENT. PT WITH HARSH COUGH, COUGHING UP BLOOD TINGED SPUTUM AT TIMES. RECEIVING TXA BREATHING TREATMENT Q8. PT ABLE TO USE URINAL IND, APPROX 800 ML OF URINIARY OUTPUT, NO BM. PT ABLE TO REPOS IND IN BED. MEDICATED X1 FOR HEADACHE AT BEGINNING OF SHIFT. DENIES CP/PRESSURE. BED IN LOW, CALL LIGHT IN REACH, WILL REPORT TO ONCOMING RN.
[2023-05-10 04:46] LABS: Albumin, Blood 2.2 g/dL (3.4-5.0); Albumin/Globulin Ratio 0.5 (0.8-1.8); Bilirubin, Total 0.8 mg/dL (0.1-1.0); Bun/Creatinine Ratio 31.6 (12.0-20.0); Calcium, Blood 8.2 mg/dL (8.5-10.1); Creatinine, Blood 0.92 mg/dL (0.60-1.20); Globulin, Blood 4.7 g/dL (2.2-4.0); Potassium, Blood 4.2 mmol/L (3.5-5.5); Total Protein, Blood 6.9 g/dL (6.4-8.2)
[2023-05-10 05:29] LABS: BAND PERCENT MAN 9 % (0-8); BASOPHILS PERCENT MAN 0 % (0-2); EOSINOPHILS PERCENT MAN 0 % (0-6); LYMPHOCYTES ABSOLUTE MAN 1.25 K/mm3 (0.84-5.20); LYMPHOCYTES PERCENT MAN 12 % (21-46); METAMYELOCYTE ABSOLUTE MAN 0.31 K/mm3 (0.00-0.00); METAMYELOCYTE PERCENT MAN 3 % (0-0); MONOCYTES ABSOLUTE MAN 0.31 K/mm3 (0.16-1.47); MONOCYTES PERCENT MAN 3 % (4-13); MYELOCYTE PERCENT MAN 1 % (0-0); NEUTROPHILS ABSOLUTE MAN 8.44 K/mm3 (1.96-9.15); SEG NEUTROPHILS PERCENT MAN 72 % (41-73); TOTAL CELLS COUNTED 100
[2023-05-10 07:09] VITALS: BP 91/55
--- NOTE | 2023-05-10 09:12 | NUR ---
ASSUMPTION OF CARE ASSUMED CARE AT APPROX 0700. PT AWAKE, AOX4. VSS. CURRENTLY ON 3L VIA NC, SATS >95%. REPORTS INCREASED WORK OF BREATHING W/ EXERTION, DECLINED SITTING IN CHAIR THIS MORNING. HACKING COUGH W/ OCCASIONAL HEMOPTYSIS, RCVING TXA NEBULIZER TREATMENT Q8H BY RT. TELEMETRY SHOWING SR, 60'S-70'S. DECLINED MEAL TRAY AND OFFER TO ORDER PREFERRED FOOD ITEMS. MD TO BEDSIDE FOR MORNING ROUNDING, ORDER FOR PHYSICAL THERAPY EVALUATION TO INCREASE MOBILITY TOLERANCE WILL BE IMPLEMENTED. IV ABX INFUSING PER ORDER. PT RECEPTIVE TO EDUCATION AND ASKING FREQUENT QUESTIONS. CALL LIGHT WITHIN REACH.
[2023-05-10 11:43] VITALS: BP 97/66
[2023-05-10 15:53] VITALS: BP 91/62
--- NOTE | 2023-05-10 17:01 | NUR ---
SHIFT SUMMARY NO ACUTE CHANGES SINCE ASSUMPTION OF CARE. PT CONTINUES TO BE AOX4. ABLE TO MAKE NEEDS KNOWN PRN. VSS. TELEMETRY SHOWING SINUS KHALIDA, HR 50'S-60'S. SOFT BP, SBP 90'S-100'S. CURRENTLY ON 3L VIA NC, SATS >90%. OCCASSIONAL HACKING COUGH. DECREASING HEMOPTYSIS ASSESSED W/ TXA TREATMENT. VOIDING W/ URINAL. NO BM THIS SHIFT. CONTINUED LACK OF APPETITE ASSESSED, SMALL MEALS T/O THE SHIFT ENCOURAGED. HAS NOT AMBULATED TODAY, DECLINED SITTING IN A CHAIR FOR MEALS OR STANDING W/ FWW TO USE URINAL. PHYSICAL THERAPY ORDER RCVD TO ADDRESS DECREASED MOBILITY TOLERANCE. PT IS ABLE TO REPOSITION HIMSELF IN BED INDEPENDENTLY. IVF INFUSING TKO. WILL REPORT TO ONCOMING RN.
[2023-05-10 19:18] VITALS: BP 88/63
--- NOTE | 2023-05-11 | NUR ---
UPDATE: PT REQUESTING TO SLEEP AND REFUSING 0000 VITALS. WILL ATTEMPT 0400 VITAL SIGNS. PT RESTING COMFORTABLY IN BED. HR 50, SATS >97% ON 3L NC.
[2023-05-11 02:56] VITALS: BP 90/54
[2023-05-11 04:07] LABS: Hemoglobin 7.9 g/dL (13.5-17.5); Mean Corpuscular HGB 31.1 pg (26.0-34.0); Mean Corpuscular HGB Conc 32.9 g/dL (31.5-36.5); Mean Corpuscular Volume 95 fL (80-100); Mean Platelet Volume 12.3 fL (9.1-12.4); NRBC ABSOLUTE 0.45 K/mm3 (0.00-0.02); NRBC Auto 3.1 /100 WBC (0.0-0.2); Platelet Count 96 K/mm3 (150-400); RDW Coefficient Variation 17.2 % (11.7-14.2); RDW Standard Deviation 57.4 fL (35.1-46.3); Red Blood Cell Count 2.54 M/mm3 (4.30-5.90); White Blood Cell Count 14.64 K/mm3 (4.00-11.30)
[2023-05-11 04:29] LABS: Albumin, Blood 2.1 g/dL (3.4-5.0); Albumin/Globulin Ratio 0.5 (0.8-1.8); Bilirubin, Total 0.8 mg/dL (0.1-1.0); Bun/Creatinine Ratio 31.3 (12.0-20.0); Calcium, Blood 8.2 mg/dL (8.5-10.1); Creatinine, Blood 0.96 mg/dL (0.60-1.20); Globulin, Blood 4.3 g/dL (2.2-4.0); Potassium, Blood 4.5 mmol/L (3.5-5.5); Total Protein, Blood 6.4 g/dL (6.4-8.2)
--- NOTE | 2023-05-11 05:17 | NUR ---
SHIFT SUMMARY: PT ALERT AND ORIENTED X4, ABLE TO FOLLOW COMMANDS AND MAKE NEEDS KNOWN. NELSON [place]. BP AND HR STABLE, AFEBRILE, SPO2 >94% ON 3L NC. RESPIRATIONS EVEN AND UNLABORED AT REST. PT STATES SHORTNESS OF BREATH WITH MOVEMENT. STRENGTH WEAK, EQUAL BILATERALLY. PT DECONDITIONED. ORDERS FOR PHYSICAL AND OCCUPATIONAL THERAPY PLACED BY DAYSHIFT RN. POWERGLIDE REMAINS IN [place], DOES NOT DRAW. NS GTT TKO. PLT COUNT 96 THIS AM, IMPROVED FROM 90. CALL FROM [employer] THIS SHIFT, [facility] ARRIVED AND READY TO TRANFUSE IF NEEDED. HIGH RISK TRANSFUSION CONSENT FROM STILL NEEDED. BED IN LOW, CALL LIGHT IN REACH, WILL REPORT TO ONCOMING JOSE
[2023-05-11 05:23] LABS: BAND PERCENT MAN 3 % (0-8); BASOPHILS PERCENT MAN 0 % (0-2); EOSINOPHILS PERCENT MAN 0 % (0-6); LYMPHOCYTES ABSOLUTE MAN 1.75 K/mm3 (0.84-5.20); LYMPHOCYTES PERCENT MAN 12 % (21-46); METAMYELOCYTE ABSOLUTE MAN 0.43 K/mm3 (0.00-0.00); METAMYELOCYTE PERCENT MAN 3 % (0-0); MONOCYTES ABSOLUTE MAN 1.02 K/mm3 (0.16-1.47); MONOCYTES PERCENT MAN 7 % (4-13); NEUTROPHILS ABSOLUTE MAN 11.41 K/mm3 (1.96-9.15); SEG NEUTROPHILS PERCENT MAN 75 % (41-73); TOTAL CELLS COUNTED 100
[2023-05-11 08:08] VITALS: BP 101/68
[2023-05-11 12:22] VITALS: BP 100/66
[2023-05-11 16:12] VITALS: BP 104/68
--- NOTE | 2023-05-11 18:02 | NUR ---
SHIFT SUMMARY; ASSUMED CARE AT 0700, A/A/OX4 DURING SHIFT. 2-3L O2 VIA NC. SOB AND DECREASE IN SATS WITH EXERTION. WORKED WITH PT DURING SHIFT. AMBULATED WITH FWW. VSS, NO ACUTE MEDICAL CHANGES, WILL CONTINUE TO MONITOR AND TREAT UNTIL CHANGE OF SHIFT.
[2023-05-11 19:47] VITALS: BP 90/57
[2023-05-12 00:18] VITALS: BP 99/64
[2023-05-12 03:44] LABS: Hematocrit 25.1 % (37.0-53.0); Hemoglobin 8.2 g/dL (13.5-17.5); Mean Corpuscular HGB 31.3 pg (26.0-34.0); Mean Corpuscular HGB Conc 32.7 g/dL (31.5-36.5); Mean Corpuscular Volume 96 fL (80-100); Mean Platelet Volume 11.9 fL (9.1-12.4); NRBC ABSOLUTE 0.49 K/mm3 (0.00-0.02); NRBC Auto 3.2 /100 WBC (0.0-0.2); Platelet Count 96 K/mm3 (150-400); RDW Coefficient Variation 18.4 % (11.7-14.2); RDW Standard Deviation 56.9 fL (35.1-46.3); Red Blood Cell Count 2.62 M/mm3 (4.30-5.90); White Blood Cell Count 15.28 K/mm3 (4.00-11.30)
[2023-05-12 04:05] LABS: Albumin/Globulin Ratio 0.5 (0.8-1.8); Bilirubin, Total 0.9 mg/dL (0.1-1.0); Bun/Creatinine Ratio 34.6 (12.0-20.0); Calcium, Blood 7.9 mg/dL (8.5-10.1); Creatinine, Blood 0.84 mg/dL (0.60-1.20); Potassium, Blood 4.1 mmol/L (3.5-5.5)
[2023-05-12 04:09] VITALS: BP 108/63
[2023-05-12 04:30] LABS: BAND PERCENT MAN 2 % (0-8); BASOPHILS PERCENT MAN 0 % (0-2); EOSINOPHILS PERCENT MAN 0 % (0-6); LYMPHOCYTES ABSOLUTE MAN 2.59 K/mm3 (0.84-5.20); LYMPHOCYTES PERCENT MAN 17 % (21-46); METAMYELOCYTE ABSOLUTE MAN 0.45 K/mm3 (0.00-0.00); METAMYELOCYTE PERCENT MAN 3 % (0-0); MONOCYTES ABSOLUTE MAN 0.91 K/mm3 (0.16-1.47); MONOCYTES PERCENT MAN 6 % (4-13); MYELOCYTE ABSOLUTE MAN 0.61 K/mm3 (0.00-0.00); MYELOCYTE PERCENT MAN 4 % (0-0); NEUTROPHILS ABSOLUTE MAN 10.69 K/mm3 (1.96-9.15); SEG NEUTROPHILS PERCENT MAN 68 % (41-73); TOTAL CELLS COUNTED 100
--- NOTE | 2023-05-12 06:16 | NUR ---
SHIFT SUMMARY PATIENT ALERT AND ORIENTED, ANXIOUS AT TIMES. PATIENT STATING DURING THE NIGHT "I'M AFRAID TO FALL ASLEEP BECAUSE I DON'T KNOW IF I'LL WAKE UP". THIS RN PROVIDING THERAPEUTIC COMMUNICATION TO EASE ANXIETY AND EDUCATING PATIENT ON CONTINUOUS MONITORING IN PLACE. SOFT BPs WITH MAP >65, ON 2L NC WITH O2 SAT MID 90s, WILL DESAT WITH ACTIVITY. PATIENT STANDBY ASSIST, ABLE TO ASSIST STAFF WITH TURNS. PATIENT USING URINAL INDEPENDENTLY WITH DARK YELLOW URINE. NO OTHER ACUTE CHANGES, WILL REPORT TO DAY SHIFT RN.
[2023-05-12 07:39] VITALS: BP 111/64
--- NOTE | 2023-05-12 08:48 | NUR ---
ASSUMPTION OF CARE ASSUMED CARE AT APPROX 0700. PT AOX4, COOPERATIVE W/ CARE AND RECEPTIVE TO EDUCATION. ABLE TO COMMUNICATE NEEDS PRN. VSS. TELEMETRY SHOWING SINUS RHYTHM/SINUS KHALIDA 50'S-60'S. CURRENTLY ON 2L VIA NC, SATS >95%. MODERATE DARK RED HEMOPTYSIS ASSESSED, TXA TREATMENT IN PLACE. INCENTIVE SPIROMETRY AND FLUTTER VALVE AT BEDSIDE, EDUCATION PROVIDED BY THIS RN AND MD. MD'S TO BEDSIDE FOR ROUNDING, RCVD ORDER FOR TRANSFER, IS NOW MEDICAL STATUS W/O TELEMETRY. PT AMBULATING W/ 1P ASSIST FWW, DESATS W/ ACTIVITY. SAT ON SIDE OF BED TO EAT BREAKFAST, ABLE TO REPOSITION HIMSELF IN BED. ABX INFUSING PER EMAR. CALL LIGHT IN REACH.
[2023-05-12 16:09] VITALS: BP 117/76
--- NOTE | 2023-05-12 17:04 | NUR ---
TRANSFER NOTE- PT TRANSFERED FROM PCU TO MEDICAL FLOOR NO ACUTE ISSUES NOTED AT TH TIME OF ARRIVAL. PG SL, NO TELE PER REPORT PT ALERT ORIENTED AND 1PA TO THE BATHROOM. PT CAN USE THE URINAL INDEPENDENTLY. PT IN BED, CALL LIGHT IN REACH NO S&S OF DISTRESS.
--- NOTE | 2023-05-12 18:27 | NUR ---
SHIFT SUMMARY- PT ALERT, ORIENTED, 1PA WITH AMBULATION INDEPEDNDENT WITH THE URINAL AT THE BEDSIDE. PT CALLS APPROPRIATELY. PT HAS A PG IN THE PRAKASH THAT IS SL AND DOES NOT DRAW. PT TRANSFERED FROM PCU EARLIER THIS SHIFT AND HAS HAD NO ACUTE CHANGE SINCE ARRIVAL. PT IN BED, CALL LIGHT IN REACH NO S&S OF DISTRESS NOTED.
[2023-05-12 19:43] VITALS: BP 104/63
[2023-05-13 02:07] VITALS: BP 120/64
--- NOTE | 2023-05-13 03:59 | NUR ---
SHIFT SUMMARY VAISHNAVI WAS ALERT AND FULLY ORIENTED AT THE START OF THE SHIFT. HE IS INDEPENDENT WITH HIS URINAL AND 1X ASSIST OUT OF BED. HE HAD NO ACUTE CHANGES OVERNGHT, HIS O2 SATURATION DROPPED INTO THE LOW 80'S EARLY INTO THE SHIFT AFTER HIS N/C CAME OUT OF PLACE, RT PLACED A CONTINUOUS BIOX AND HE HAS MAINTAINED SATURATIONS IN THE 90'S SINCE. PT IS RESTING IN BED AT A LOW POSITION WITH THE CALL LIGHT IN REACH.
[2023-05-13 05:59] LABS: Hemoglobin 9.4 g/dL (13.5-17.5); Mean Corpuscular HGB 31.1 pg (26.0-34.0); Mean Corpuscular HGB Conc 33.6 g/dL (31.5-36.5); Mean Corpuscular Volume 93 fL (80-100); Mean Platelet Volume 11.5 fL (9.1-12.4); NRBC ABSOLUTE 0.26 K/mm3 (0.00-0.02); NRBC Auto 1.8 /100 WBC (0.0-0.2); RDW Coefficient Variation 18.7 % (11.7-14.2); RDW Standard Deviation 56.3 fL (35.1-46.3); Red Blood Cell Count 3.02 M/mm3 (4.30-5.90); White Blood Cell Count 14.54 K/mm3 (4.00-11.30)
[2023-05-13 06:13] LABS: Bun/Creatinine Ratio 29.4 (12.0-20.0); Calcium, Blood 8.1 mg/dL (8.5-10.1); Creatinine, Blood 0.75 mg/dL (0.60-1.20); Potassium, Blood 4.1 mmol/L (3.5-5.5)
[2023-05-13 06:21] LABS: BAND PERCENT MAN 4 % (0-8); BASOPHILS PERCENT MAN 0 % (0-2); EOSINOPHILS ABSOLUTE MAN 0.14 K/mm3 (0.00-0.68); EOSINOPHILS PERCENT MAN 1 % (0-6); LYMPHOCYTES % ATYPICAL MANUAL 1 % (0-0); LYMPHOCYTES ABSOLUTE MAN 2.03 K/mm3 (0.84-5.20); LYMPHOCYTES PERCENT MAN 13 % (21-46); METAMYELOCYTE ABSOLUTE MAN 1.01 K/mm3 (0.00-0.00); METAMYELOCYTE PERCENT MAN 7 % (0-0); MONOCYTES ABSOLUTE MAN 1.16 K/mm3 (0.16-1.47); MONOCYTES PERCENT MAN 8 % (4-13); NEUTROPHILS ABSOLUTE MAN 10.17 K/mm3 (1.96-9.15); SEG NEUTROPHILS PERCENT MAN 66 % (41-73); TOTAL CELLS COUNTED 100
[2023-05-13 06:39] LABS: Platelet Count 104 K/mm3 (150-400)
[2023-05-13 08:11] VITALS: BP 145/93
[2023-05-13 10:18] LABS: Performing Lab BLOODWORKS; Test Name ABID
[2023-05-13 15:57] VITALS: BP 134/77
--- NOTE | 2023-05-13 18:42 | NUR ---
SHIFT SUMMARY- PT IS A/O, PLESANT AND COOPERATIVE. HE IS EATING AND DRINKING WELL. HE IS USING THE URINAL AT BEDSIDE. POSSIBLE DX TODAY, OT AND PT EVAL THIS SHIFT. RT PREFORMED A HOME O2 EVAL, PT WILL NEED O2 UPON DISCHARGE HOME. HIS BED IS IN THE LOW POSITON AND CALL LIGHT IS WITHIN REACH
[2023-05-13 19:37] VITALS: BP 117/61
[2023-05-14 03:25] VITALS: BP 120/75
--- NOTE | 2023-05-14 04:17 | NUR ---
SHIFT SUMMARY VAISHNAVI IS ALERT AND FULLY ORIENTED AT START OF SHIFT. HE HAD NO ACUTE CHANGES THIS SHIFT AND NO COMPLAINTS. HE STILL DESATS INTO THE LOW 80'S WHEN HE STANDS TO VOID BUT RECOVERS QUICKLY WITH DEEP BREATHS. HE IS CURRENTLY ON 4L O2 N/C. IT IS SOUNDING LIKE HE MAY DISCHARGE TOMORROW WITH HOME 02 THERAPY. PT IS CURRENTLY WATCHING TV IN ROOM WITH BED IN LOWEST POSITION AND CALL LIGHT IN REACH.
[2023-05-14 05:01] LABS: Hematocrit 31.5 % (37.0-53.0); Hemoglobin 10.2 g/dL (13.5-17.5); Mean Corpuscular HGB 30.7 pg (26.0-34.0); Mean Corpuscular HGB Conc 32.4 g/dL (31.5-36.5); Mean Corpuscular Volume 95 fL (80-100); Mean Platelet Volume 12.3 fL (9.1-12.4); NRBC ABSOLUTE 0.13 K/mm3 (0.00-0.02); NRBC Auto 0.8 /100 WBC (0.0-0.2); Platelet Count 88 K/mm3 (150-400); RDW Coefficient Variation 18.9 % (11.7-14.2); Red Blood Cell Count 3.32 M/mm3 (4.30-5.90); White Blood Cell Count 15.44 K/mm3 (4.00-11.30)
[2023-05-14 05:18] LABS: Bun/Creatinine Ratio 27.1 (12.0-20.0); Calcium, Blood 8.2 mg/dL (8.5-10.1); Creatinine, Blood 0.7 mg/dL (0.60-1.20)
[2023-05-14 05:54] LABS: BAND PERCENT MAN 1 % (0-8); BASOPHILS PERCENT MAN 0 % (0-2); EOSINOPHILS ABSOLUTE MAN 0.15 K/mm3 (0.00-0.68); EOSINOPHILS PERCENT MAN 1 % (0-6); LYMPHOCYTES % ATYPICAL MANUAL 1 % (0-0); LYMPHOCYTES ABSOLUTE MAN 3.55 K/mm3 (0.84-5.20); LYMPHOCYTES PERCENT MAN 22 % (21-46); METAMYELOCYTE ABSOLUTE MAN 0.61 K/mm3 (0.00-0.00); METAMYELOCYTE PERCENT MAN 4 % (0-0); MONOCYTES ABSOLUTE MAN 0.46 K/mm3 (0.16-1.47); MONOCYTES PERCENT MAN 3 % (4-13); NEUTROPHILS ABSOLUTE MAN 10.65 K/mm3 (1.96-9.15); SEG NEUTROPHILS PERCENT MAN 68 % (41-73); TOTAL CELLS COUNTED 100
[2023-05-14 07:42] VITALS: BP 127/74
[2023-05-14] MEDS ORDERED: VISBIOME 112.51 EACH PO (11:42)
[2023-05-14] MEDS ORDERED: PRED20 PO (11:49)
[2023-05-14] MEDS ORDERED: NYSTATIN100000 U13 MT (12:14)
--- NOTE | 2023-05-14 15:17 | NUR ---
PT DISCHARGED FROM THE UNIT. IV REMOVED. DISCHARGE INSTRUCTIONS REVIEWED. MEDICATIONS FAXED TO PHARMACY. FWW AND OXYGEN DELIVERED. PT LEFT UNIT VIA WHEEL CHAIR. TAXI TO DRIVE HOME
== END 2023-05-14 14:06 | disposition home health service (06) | DRG 871 ==
LOC: ER 14:29 → ICUE 18:33 → PCU 05-09 10:45 → MEDS 05-12 15:49 → EDPENDDIS 05-14 12:04 → ENPENDDIS 05-14 12:04 → MEDS 05-14 14:06
PROVIDERS: Family Medicine; Hospitalist; Internal Medicine; Nurse Practitioner Acute Care; Pharmacist; Student in an Organized Health Care Education/Training Program; ADMIT Internal Medicine
PROC: 3E03329 Introduction of Other Anti-infective into Peripheral Vein, Percutaneous Approach (ICD-10-PCS; principal; 2023-05-07)
PROC: 3E033XZ Introduction of Vasopressor into Peripheral Vein, Percutaneous Approach (ICD-10-PCS; 2023-05-07)
PROC: 5A0935A Assistance with Respiratory Ventilation, Less than 24 Consecutive Hours, High Flow/Velocity Cannula (ICD-10-PCS; 2023-05-07)
PROC: 30233R1 Transfusion of Nonautologous Platelets into Peripheral Vein, Percutaneous Approach (ICD-10-PCS; 2023-05-08)
PROC: 30233N1 Transfusion of Nonautologous Red Blood Cells into Peripheral Vein, Percutaneous Approach (ICD-10-PCS; 2023-05-08)
DX: A41.9 Sepsis, unspecified organism (principal); I21.4 Non-ST elevation (NSTEMI) myocardial infarction; J18.9 Pneumonia, unspecified organism; J96.01 Acute respiratory failure with hypoxia; R65.21 Severe sepsis with septic shock; E87.21 Acute metabolic acidosis; D61.818 Other pancytopenia; R04.2 Hemoptysis; I50.32 Chronic diastolic (congestive) heart failure; Z20.822 Contact with and (suspected) exposure to COVID-19; D72.820 Lymphocytosis (symptomatic); J84.10 Pulmonary fibrosis, unspecified; J43.9 Emphysema, unspecified; I11.0 Hypertensive heart disease with heart failure; I48.0 Paroxysmal atrial fibrillation; I25.10 Atherosclerotic heart disease of native coronary artery without angina pectoris; I73.9 Peripheral vascular disease, unspecified; E78.5 Hyperlipidemia, unspecified; I71.40 Abdominal aortic aneurysm, without rupture, unspecified; E03.9 Hypothyroidism, unspecified; Z88.6 Allergy status to analgesic agent; Z79.899 Other long term (current) drug therapy; Z87.891 Personal history of nicotine dependence; Z98.890 Other specified postprocedural states; Z86.73 Personal history of transient ischemic attack (TIA), and cerebral infarction without residual deficits
CPT/HCPCS: 0241U; 36415; 36430; 71045; 74177; 80048; 80053; 80202; 81001; 82533; 82803; 82947; 83010; 83605; 83690; 83735; 83880; 84145; 84443; 84484; 85014; 85018; 85025; 85610; 86850; 86870; 86900; 86901; 87040; 93005; 93010; 94640; 94664; 94760; 94761; 94762; 96361; 96365-59; 96367; 96375; 97110; 97116; 97162; 97165; 97530; 97535; 99285-25; A9270; C1751; J0692; J1459; J2185; J2371; J2405; J2930; J3010; J3370; J3475; J7030; J7040; J7050; J7060; J7120; J7512; P9035; P9045; Q9967

== ENCOUNTER 2023-06-01 22:38 | Emergency (ER) | payer OTHER ==
[~2023-06-01] VITALS: Ht 182.9 cm; Wt 74.4 kg
[~2023-06-01 22:38] MED LIST changes: +NYSTATIN100000 U13 MT; +PRED20 PO; +VISBIOME 112.51 EACH PO
[2023-06-01 23:12] LABS: BASOPHILS ABSOLUTE AUTO 0.01 K/mm3 (0.00-0.23); BASOPHILS PERCENT AUTO 0 % (0-2); EOSINOPHILS ABSOLUTE AUTO 0.03 K/mm3 (0.00-0.68); EOSINOPHILS PERCENT AUTO 1 % (0-6); Hemoglobin 10.1 g/dL (13.5-17.5); IMMATURE GRAN ABSOLUTE AUTO 0.05 K/mm3 (0.00-0.10); IMMATURE GRAN PERCENT AUTO 2 % (0-1); LYMPHOCYTES ABSOLUTE AUTO 0.73 K/mm3 (0.84-5.20); LYMPHOCYTES PERCENT AUTO 31 % (21-46); MONOCYTES ABSOLUTE AUTO 0.62 K/mm3 (0.16-1.47); MONOCYTES PERCENT AUTO 27 % (4-13); Mean Corpuscular HGB 30.1 pg (26.0-34.0); Mean Corpuscular HGB Conc 32.6 g/dL (31.5-36.5); Mean Corpuscular Volume 92 fL (80-100); Mean Platelet Volume 10.3 fL (9.1-12.4); NEUTROPHILS PERCENT AUTO 39 % (41-73); Platelet Count 61 K/mm3 (150-400); RDW Coefficient Variation 16.5 % (11.7-14.2); Red Blood Cell Count 3.36 M/mm3 (4.30-5.90); White Blood Cell Count 2.34 K/mm3 (4.00-11.30)
[2023-06-01 23:30] LABS: Albumin, Blood 2.9 g/dL (3.4-5.0); Albumin/Globulin Ratio 0.9 (0.8-1.8); Bilirubin, Total 0.3 mg/dL (0.1-1.0); Bun/Creatinine Ratio 34.8 (12.0-20.0); Calcium, Blood 8.3 mg/dL (8.5-10.1); Creatinine, Blood 0.75 mg/dL (0.60-1.20); Globulin, Blood 3.3 g/dL (2.2-4.0); Potassium, Blood 4.4 mmol/L (3.5-5.5); Total Protein, Blood 6.2 g/dL (6.4-8.2)
[2023-06-01] MEDS ORDERED: TAMSULOSIN HCL0.4 M1 PO (23:53)
[2023-06-01] MEDS ORDERED: Ventolin/Prove6.7 GM INH (23:54)
[2023-06-01] MEDS ORDERED: PROPRANOLOL HCL80 MG (23:54)
[2023-06-02] MEDS ORDERED: DOC250 PO (03:10)
[2023-06-02 03:15] VITALS: BP 146/80
== END 2023-06-02 03:30 | disposition home or self-care (01) ==
LOC: ER 22:38
PROVIDERS: Physician Assistant
DX: K59.00 Constipation, unspecified (principal); D61.818 Other pancytopenia; C91.10 Chronic lymphocytic leukemia of B-cell type not having achieved remission; I25.10 Atherosclerotic heart disease of native coronary artery without angina pectoris; I10 Essential (primary) hypertension; E78.5 Hyperlipidemia, unspecified; E03.9 Hypothyroidism, unspecified; I48.0 Paroxysmal atrial fibrillation; I50.32 Chronic diastolic (congestive) heart failure; Z87.891 Personal history of nicotine dependence
CPT/HCPCS: 74177; 76705; 80053; 85025; 96374; 96375; 99284-25; J2405; J3010; Q9967

== ENCOUNTER 2023-06-11 10:08 | Inpatient (IN) | payer OTHER ==
[2023-06-11] VITALS (21 sets, daily range): BP systolic 92–122; BP diastolic 55–85
[~2023-06-11] VITALS: Ht 175.3 cm; Wt 77.0 kg
[~2023-06-11 10:08] MED LIST changes: +DOC250 PO; -PRED20 PO; +PROPRANOLOL HCL80 MG; +Prednisone10 MG PO; +TAMSULOSIN HCL0.4 M1 PO
[2023-06-11 10:59] LABS: Bun/Creatinine Ratio 19.8 (12.0-20.0); Calcium, Blood 8.5 mg/dL (8.5-10.1); Creatinine, Blood 0.86 mg/dL (0.60-1.20); Potassium, Blood 4.3 mmol/L (3.5-5.5)
[2023-06-11 11:06] LABS: Base Excess Venous 0.5 mmol/L; Bicarbonate Venous 24.8 mmol/L (24.0-30.0); pH Blood Venous 7.41 (7.34-7.37)
[2023-06-11 12:03] LABS: BASOPHILS ABSOLUTE AUTO 0.02 K/mm3 (0.00-0.23); BASOPHILS PERCENT AUTO 1 % (0-2); EOSINOPHILS ABSOLUTE AUTO 0.05 K/mm3 (0.00-0.68); EOSINOPHILS PERCENT AUTO 1 % (0-6); Hematocrit 30.9 % (37.0-53.0); Hemoglobin 9.8 g/dL (13.5-17.5); IMMATURE GRAN ABSOLUTE AUTO 0.14 K/mm3 (0.00-0.10); IMMATURE GRAN PERCENT AUTO 4 % (0-1); LYMPHOCYTES ABSOLUTE AUTO 2.15 K/mm3 (0.84-5.20); LYMPHOCYTES PERCENT AUTO 59 % (21-46); MONOCYTES ABSOLUTE AUTO 0.77 K/mm3 (0.16-1.47); MONOCYTES PERCENT AUTO 21 % (4-13); Mean Corpuscular HGB 29.9 pg (26.0-34.0); Mean Corpuscular HGB Conc 31.7 g/dL (31.5-36.5); Mean Corpuscular Volume 94 fL (80-100); NEUTROPHILS ABSOLUTE AUTO 0.54 K/mm3 (1.96-9.15); NEUTROPHILS PERCENT AUTO 15 % (41-73); NRBC ABSOLUTE 0.04 K/mm3 (0.00-0.02); NRBC Auto 1.1 /100 WBC (0.0-0.2); RDW Coefficient Variation 16.6 % (11.7-14.2); RDW Standard Deviation 56.3 fL (35.1-46.3); Red Blood Cell Count 3.28 M/mm3 (4.30-5.90); White Blood Cell Count 3.67 K/mm3 (4.00-11.30)
[2023-06-11 12:06] LABS: Platelet Count 3 K/mm3 (150-400)
--- NOTE | 2023-06-11 23:01 | NUR ---
ASSUMED CARE CARE WAS ASSUMED OF PT AT 1900, REPORT GIVEN BY WILFRID GARCIA. PT A/O X4. PT ABLE TO PARTICIPATE IN CONVERSATION AND MAKE NEEDS KNOWN. PT WAS ON HI-FLOW N/C, BUT WAS CHANGED TO HEATED HI-FLOW N/C D/T HIM SIGNIFICANTLY DESATTING WHEN REPOSITIONING IN BED 30 LPM, FiO2 70%. SINCE THAT CHANGE WAS MADE PT HAS MAINTAINED O2 SATS > 90%. CARDIAC MONITORING REFLECTED NSR. HR 80s. PIVs SL. PT ABLE TO USE URINAL INDEPENDENTLY.
[2023-06-12] VITALS (76 sets, daily range): BP systolic 82–128; BP diastolic 45–111
[2023-06-12 00:18] LABS: Source, Urine Condom Cath
[2023-06-12 00:22] LABS: Bilirubin, Urine Neg (Neg); Blood, Urine 5+ (Neg); Glucose Qualitative, Urine Neg (Neg); Ketones, Urine 1+ (Neg); Leukocyte Esterase, Urine Neg (Neg); Nitrite, Urine Neg (Neg); Protein, Urine Neg (Neg); Urobilinogen, Urine NORM (Normal)
[2023-06-12 01:09] LABS: Appearance, Urine Clear (Clear); Color, Urine Pale Yellow (P-Yellow)
[2023-06-12 01:11] LABS: Bacteria Rare /hpf; Red Blood Cells, Urine 25-50 /hpf (0-2); Squamous Epithelial Cells Not Seen /hpf (Few); White Blood Cells, Urine 0-2 /hpf (0-5)
[2023-06-12 04:23] LABS: Hemoglobin 8.1 g/dL (13.5-17.5); Mean Corpuscular HGB 29.8 pg (26.0-34.0); Mean Corpuscular HGB Conc 32.4 g/dL (31.5-36.5); Mean Corpuscular Volume 92 fL (80-100); NRBC ABSOLUTE 0.02 K/mm3 (0.00-0.02); NRBC Auto 0.9 /100 WBC (0.0-0.2); RDW Coefficient Variation 16.6 % (11.7-14.2); RDW Standard Deviation 54.9 fL (35.1-46.3); Red Blood Cell Count 2.72 M/mm3 (4.30-5.90); White Blood Cell Count 2.22 K/mm3 (4.00-11.30)
[2023-06-12 04:38] LABS: Bun/Creatinine Ratio 19.7 (12.0-20.0); Calcium, Blood 8.1 mg/dL (8.5-10.1); Creatinine, Blood 0.66 mg/dL (0.60-1.20); Potassium, Blood 3.8 mmol/L (3.5-5.5)
[2023-06-12 05:12] LABS: Platelet Count 7 K/mm3 (150-400)
[2023-06-12 05:21] LABS: BASOPHILS PERCENT MAN 0 % (0-2); EOSINOPHILS ABSOLUTE MAN 0.02 K/mm3 (0.00-0.68); EOSINOPHILS PERCENT MAN 1 % (0-6); LYMPHOCYTES % ATYPICAL MANUAL 1 % (0-0); LYMPHOCYTES ABSOLUTE MAN 1.35 K/mm3 (0.84-5.20); LYMPHOCYTES PERCENT MAN 60 % (21-46); METAMYELOCYTE ABSOLUTE MAN 0.02 K/mm3 (0.00-0.00); METAMYELOCYTE PERCENT MAN 1 % (0-0); MONOCYTES ABSOLUTE MAN 0.35 K/mm3 (0.16-1.47); MONOCYTES PERCENT MAN 16 % (4-13); MYELOCYTE ABSOLUTE MAN 0.08 K/mm3 (0.00-0.00); MYELOCYTE PERCENT MAN 4 % (0-0); NEUTROPHILS ABSOLUTE MAN 0.37 K/mm3 (1.96-9.15); SEG NEUTROPHILS PERCENT MAN 17 % (41-73); TOTAL CELLS COUNTED 100
--- NOTE | 2023-06-12 05:49 | NUR ---
SHIFT SUMMARY PT REMAINS A/O X4. PT HAS BEEN ABLE TO MAKE NEEDS KNOWN T/O SHIFT. PT CONTINUES TO BE ON HEATED HI-FLOW N/C, O2 SATS > 90%. PT CONTINUES TO HAVE HEMOPTYSIS. PT STARTED THE SHIFT IN NSR, CARDIAC MONITORING HAS REFLECTED AFIB T/O THE MAJORITY OF THE SHIFT. PT HAS HX OF PAROXYSMAL AFIB, ORDERES RECIEVED AND MEDICATED PER EMAR. DILTIAZEM GTT INFUSING AT 10 10 MG/HR. HR CURRENTLY 100s. SBP 90s-100s. CONDOM CATH WAS APPLIED TO PT D/T FREQUENCY AND URGENCY. UA SENT, UNREMARKABLE. IgG CURRENTLY INFUSING, RATE INCREASED SLOWLY D/T PT'S SOB AND AFIB T/O SHIFT.
[2023-06-12] MEDS ORDERED: SPIRIVA RESPIMAT4 G3 INH ×2 (08:46→08:48)
[2023-06-12 10:48] LABS: BASOPHILS ABSOLUTE AUTO 0.01 K/mm3 (0.00-0.23); BASOPHILS PERCENT AUTO 0 % (0-2); EOSINOPHILS ABSOLUTE AUTO 0.04 K/mm3 (0.00-0.68); EOSINOPHILS PERCENT AUTO 2 % (0-6); Hematocrit 21.9 % (37.0-53.0); Hemoglobin 7.2 g/dL (13.5-17.5); IMMATURE GRAN ABSOLUTE AUTO 0.09 K/mm3 (0.00-0.10); IMMATURE GRAN PERCENT AUTO 4 % (0-1); LYMPHOCYTES ABSOLUTE AUTO 0.95 K/mm3 (0.84-5.20); LYMPHOCYTES PERCENT AUTO 40 % (21-46); MONOCYTES ABSOLUTE AUTO 0.55 K/mm3 (0.16-1.47); MONOCYTES PERCENT AUTO 23 % (4-13); Mean Corpuscular HGB 30.4 pg (26.0-34.0); Mean Corpuscular HGB Conc 32.9 g/dL (31.5-36.5); Mean Corpuscular Volume 92 fL (80-100); Mean Platelet Volume 10.6 fL (9.1-12.4); NEUTROPHILS ABSOLUTE AUTO 0.75 K/mm3 (1.96-9.15); NEUTROPHILS PERCENT AUTO 31 % (41-73); NRBC ABSOLUTE 0.03 K/mm3 (0.00-0.02); NRBC Auto 1.3 /100 WBC (0.0-0.2); RDW Coefficient Variation 16.6 % (11.7-14.2); RDW Standard Deviation 55.9 fL (35.1-46.3); Red Blood Cell Count 2.37 M/mm3 (4.30-5.90); White Blood Cell Count 2.39 K/mm3 (4.00-11.30)
[2023-06-12 11:02] LABS: Platelet Count 35 K/mm3 (150-400)
--- NOTE | 2023-06-12 12:09 | NUR ---
ASSUMPTION OF CARE REPORT RECEIVED FROM NOC RN. PT RESTING IN BED, ALERT AND ORIENTED X4. HR 100'S A FIB, MAP >65. PT ON AIRVO 30/85% OXYGEN SATURATION >95%, NO COMPLAINTS OF SOB OR CHEST PAIN. PT CONTINUES TO HAVE HEMOPTYSIS. CONDOM CATH IN PLACE DRAINING TO GRAVITY. IGG INFUSING, PT RECEIVED 1 UNIT OF PLATELETS THIS AM. POWERGLIDE TO PRAKASH, PIV TO LAC.
[2023-06-12 13:48] LABS: Adenovirus Not Detected (NOT DETECT); Bordetella pertussis Not Detected (NOT DETECT); Chlamydophila pneumoniae Not Detected (NOT DETECT); Coronavirus 229E Not Detected (NOT DETECT); Coronavirus HKU1 Not Detected (NOT DETECT); Coronavirus NL63 Not Detected (NOT DETECT); Coronavirus OC43 Not Detected (NOT DETECT); Human Metapneumovirus Not Detected (NOT DETECT); Human Rhinovirus/Enterovirus Not Detected (NOT DETECT); Influenza A/2009-H1 Not Detected (NOT DETECT); Influenza A/H1 Not Detected (NOT DETECT); Influenza A/H3 Not Detected (NOT DETECT); Influenza B Not Detected (NOT DETECT); Mycoplasma pneumoniae Not Detected (NOT DETECT); Parainfluenza Virus 1 Not Detected (NOT DETECT); Parainfluenza Virus 2 Not Detected (NOT DETECT); Parainfluenza Virus 3 Not Detected (NOT DETECT); Parainfluenza Virus 4 Not Detected (NOT DETECT); Respiratory Syncytial Virus Not Detected (NOT DETECT); SARS-Cov-2 (COVID-19), BioFire Not Detected (NOT DETECT)
--- NOTE | 2023-06-12 17:36 | NUR ---
SHIFT SUMMARY PT RESTING IN BED. ALERT AND ORIENTED X4, PT ABLE TO MAKE NEEDS KNOWN. AT 1700 PATIENT CONVERTED TO AFIB WITH A RATE OF 130-150'S, DILTIAZEM DRIP RESTARTED AT 10MG/HR, MAP >65. AIRVO SETTINGS 30/50%, OXYGEN SATURATION >95%. CONDOM CATH IN PLACE PATENT DRAINING TO GRAVITY. PIV TO LAC, POWERGLIDE TO PRAKASH.
[2023-06-12 20:11] LABS: Hematocrit 22.9 % (37.0-53.0); Hemoglobin 7.5 g/dL (13.5-17.5)
--- NOTE | 2023-06-12 20:34 | NUR ---
ASSUMED CARE CARE WAS ASSUMED OF PT AT 1900, REPORT GIVEN BY WILFRID GARCIA. PT A/O X4. PT ABLE TO MAKE NEEDS KNOWN AND PARTICIPATE IN CONVERSATION. PT ON HEATED HI-FLOW N/C, 30/60%. PT TOLERATING WELL, O2 SATS > 90%. PT CONTINUES TO HAVE HEMOPTYSIS BUT STATES THAT HE THINKS IT IS SLOWING DOWN. CARDIAC MONITORING REFLECTS AFIB, HR 100s. CARDIZEM GTT @ 10 MG/HR. SBP 90s-100s. PT DENIES SOB AND CHEST PAIN. CONDOM CATH IN PLACE, PATENT AND DRAINING TO GRAVITY. PT ABLE TO REPOSITION INDEPENDENTLY IN BED. PLAN IS FOR PT TO TRANSFER TO PCU THIS SHIFT.
--- NOTE | 2023-06-12 22:00 | NUR ---
PT TRANSFERED TO PCU, CARE TRANSITIONED TO ERIS RN.
[2023-06-13] VITALS (9 sets, daily range): BP systolic 93–123; BP diastolic 55–78
[2023-06-13 03:20] LABS: Vancomycin, Trough 7.5 ug/mL (5.0-10.0)
--- NOTE | 2023-06-13 05:20 | NUR ---
SHIFT SUMMARY ASSUMED CARE OF PT AT FROM ICU AT 2145. PT IS A/OX4. HEART SOUNDS IRREGULAR. PT WAS IN SINMUS ON ARRIVAL TO UNTIL BUT SWITCHED FROM AFIB/AFLUTTER AND BACK TO SINUS. PT HEART RATE INCREASES WITH COUGHING OR ACTIVITY. LUNG SOUNDS HAVE CRACKELS IN BASES. PT WEARING HIGHFLOW NC, PT WILL DESAT IF NOT IN NOSE TO 80S. PT USED CONDOM CATH DURING NOC. URINE CLEAR YELLOW. PT C/O HAVING TO URINATE EVERY HOUR, WHICH IS NEW FOR HIM THE LAST COUPLE MONTHS. PT EXPRESSED FUSTRATION ABOUT NOT KNOWING DIAGNOSIS FROM DR WARD AND ABOUT TREATMENT PLAN.
[2023-06-13 08:02] LABS: BASOPHILS ABSOLUTE AUTO 0.01 K/mm3 (0.00-0.23); BASOPHILS PERCENT AUTO 0 % (0-2); EOSINOPHILS ABSOLUTE AUTO 0.01 K/mm3 (0.00-0.68); EOSINOPHILS PERCENT AUTO 0 % (0-6); Hematocrit 22.1 % (37.0-53.0); Hemoglobin 7.2 g/dL (13.5-17.5); IMMATURE GRAN ABSOLUTE AUTO 0.09 K/mm3 (0.00-0.10); IMMATURE GRAN PERCENT AUTO 4 % (0-1); LYMPHOCYTES PERCENT AUTO 33 % (21-46); MONOCYTES ABSOLUTE AUTO 0.47 K/mm3 (0.16-1.47); MONOCYTES PERCENT AUTO 19 % (4-13); Mean Corpuscular HGB 29.9 pg (26.0-34.0); Mean Corpuscular HGB Conc 32.6 g/dL (31.5-36.5); Mean Corpuscular Volume 92 fL (80-100); Mean Platelet Volume 12.7 fL (9.1-12.4); NEUTROPHILS ABSOLUTE AUTO 1.08 K/mm3 (1.96-9.15); NEUTROPHILS PERCENT AUTO 44 % (41-73); Platelet Count 53 K/mm3 (150-400); RDW Coefficient Variation 16.1 % (11.7-14.2); RDW Standard Deviation 53.1 fL (35.1-46.3); Red Blood Cell Count 2.41 M/mm3 (4.30-5.90); White Blood Cell Count 2.46 K/mm3 (4.00-11.30)
[2023-06-13 08:21] LABS: Albumin, Blood 2.2 g/dL (3.4-5.0); Albumin/Globulin Ratio 0.5 (0.8-1.8); Bilirubin, Total 1.3 mg/dL (0.1-1.0); Bun/Creatinine Ratio 23.4 (12.0-20.0); Calcium, Blood 8.2 mg/dL (8.5-10.1); Creatinine, Blood 0.73 mg/dL (0.60-1.20); Globulin, Blood 4.6 g/dL (2.2-4.0); Potassium, Blood 3.9 mmol/L (3.5-5.5); Total Protein, Blood 6.8 g/dL (6.4-8.2)
--- NOTE | 2023-06-13 10:51 | NUR ---
AM NOTES: PT ALERT AND ORIENTED X4, ON 8L OF O2 UPON SHIFT CHANGE PT SATTING 97% ABLE TO TITRATE DOWN TO 6L BUT IS REQUIRING 8-10L WITH EXERTION, EVEN WHEN SITTING UP IN BED EATING. HRR AFIB 90-120'S, SBP 100'S, AFEBRILE. PT REQUESTED TO AMBULATE TO THE BATHROOM CO-RN WASNT AWARE OF PT'S NEED OF ATLEAST 8L OF O2 WITH EXERTION THIS RN CHECKED THE PT IN THE BATHROOM TELE CALLED FOR HRR 160-170'S, PT SITTING IN THE TOILET TACHYPNEIC AND SHORT OF BREATH PT INSTRUCTED TO TAKE SOME DEEP BREATH, O2 LINE WAS CHECKED AND PT WAS AT 4L OF O2, O2 WAS INCREASED TO 10L PT THEN ABLE TO RECOVER ASSISTED BACK IN BED VIA WHEELCHAIR PT'S 02 WAS STILL IN THE LOW 80'S UPON GETTING BACK IN BED PT KEPT ON 10L OF O2 UNTIL SATS WAS >93% THEN TITRATED BACK DOWN TO 6L. PT ABLE TO FINISH BREAKFAST, CURRENTLY GETTING A BED BATH. PT DENIES ANY KIND OF PAIN, REFUSED TO GET CONDOM CATH REPLACED PT STATED HE REQUESTED TO HAVE IT LAST NIGHT SO HE CAN GET SOME SLEEP, PT ABLE TO USE URINAL. PT HAD A LARGE BM IN THE BATHROOM THIS AM. NO OTHER ISSUES AT THIS TIME, CALL LIGHTS IN REACH WILL CONTINUE TO MONITOR
--- NOTE | 2023-06-13 18:11 | NUR ---
PT SUMMARY: PT CONVERTED TO SR AROUND 1400 HRR STAYED ON THE 80'S, SBP'S 120'S, SATS ABOVE 92% ON 6L AT REST USES 8-10L WITH EXERTION, AFEBRILE. PT HAS BEEN CALLING APPROPRIATELY, PT WAS UP IN THE CHAIR FOR LUNCH TIME AFTER BED BATH, PT HAS BEEN USING URINAL FOR VOIDING URINE DARK ORANGE IN COLOR, PT HAD HEMOPTYSIS COUPLE TIMES FOR THE SHIFT. TYLENOL WAS GIVEN FOR HEADACHE. NO OTHER ISSUES REPORTED. PT NOW RESTING IN BED CALL LIGHTS IN REACH WILL REPORT TO ONCOMING SHIFT
[2023-06-13 20:35] LABS: Acinetobacter baumannii DNA Not Detected copy/mL (NOT DETECT); Adenovirus DNA Not Detected (NOT DETECT); Chlamydia pneumonia Not Detected (NOT DETECT); Enterobacter cloacae DNA Not Detected copy/mL (NOT DETECT); Escherichia coli DNA Not Detected copy/mL (NOT DETECT); Haemophilus influenzae DNA Not Detected copy/mL (NOT DETECT); Human Coronavirus RNA Not Detected (NOT DETECT); Human Metapneumovirus RNA Not Detected (NOT DETECT); Influenza virus A RNA Not Detected (NOT DETECT); Influenza virus B RNA Not Detected (NOT DETECT); Klebsiella aerogenes DNA Not Detected copy/mL (NOT DETECT); Klebsiella oxytoca DNA Not Detected copy/mL (NOT DETECT); Klebsiella pneumoniae DNA Not Detected copy/mL (NOT DETECT); Legionella pneumophila Not Detected (NOT DETECT); Moraxella catarrhalis DNA Not Detected copy/mL (NOT DETECT); Mycoplasma pneumoniae Not Detected (NOT DETECT); Parainfluenza virus RNA Not Detected (NOT DETECT); Proteus sp DNA Not Detected copy/mL (NOT DETECT); Pseudomonas aeruginosa DNA Not Detected copy/mL (NOT DETECT); Respiratory syncytial Vir RNA Not Detected (NOT DETECT); Rhinovirus+Enterovirus RNA Not Detected (NOT DETECT); Serratia marcescens DNA Not Detected copy/mL (NOT DETECT); Staphylococcus aureus DNA Not Detected copy/mL (NOT DETECT); Streptococcus agalactiae DNA Not Detected copy/mL (NOT DETECT); Streptococcus pneumoniae DNA Not Detected copy/mL (NOT DETECT); Streptococcus pyogenes DNA Not Detected copy/mL (NOT DETECT)
[2023-06-14 04:00] VITALS: BP 121/83
[2023-06-14 04:16] LABS: IMMATURE RETIC FRACTION 37.4 % (2.3-16.0); RETIC HGB EQUIVALENT 29.9 pg (28.20-36.60); RETICULOCYTE ABSOLUTE 0.1384 M/mm3 (0.0200-0.1100); RETICULOCYTE COUNT PERCENT 5.56 % (0.50-2.50)
--- NOTE | 2023-06-14 05:11 | NUR ---
SHIFT SUMMARY PT A/OX4 AND COOPERATIVE OF CARE. PT ANXIOUS AT BEGINNING OF SHFT DUE TO INCREASED HR @ 120-130'S. LORESSOR GIVEN PER EMAR AT THAT TIME. PT HR DOWN TO 70-80'S POST LORESSOR. PT REPORTED CHEST DISCOMFORT WHEN HR WAS IN 120'S ALONG WITH MINOR SOB, PRESSURE SUBSIDED AFTER HR DECREASED FROM LOPRESSOR. PT VSS THORUGHOUT SHIFT WITH O2 SATS IN THE 90'S ON 6L NC. PT INDEPENDENT IN BED. SCD'S IN PLACE PER ORDER. PT SLEPT PERIODICALLY DURING SHIFT.
[2023-06-14 07:25] VITALS: BP 133/75
[2023-06-14 07:35] LABS: BASOPHILS ABSOLUTE AUTO 0.01 K/mm3 (0.00-0.23); BASOPHILS PERCENT AUTO 0 % (0-2); EOSINOPHILS ABSOLUTE AUTO 0.03 K/mm3 (0.00-0.68); EOSINOPHILS PERCENT AUTO 1 % (0-6); Hematocrit 24.1 % (37.0-53.0); Hemoglobin 7.8 g/dL (13.5-17.5); IMMATURE GRAN ABSOLUTE AUTO 0.17 K/mm3 (0.00-0.10); IMMATURE GRAN PERCENT AUTO 4 % (0-1); LYMPHOCYTES ABSOLUTE AUTO 1.45 K/mm3 (0.84-5.20); LYMPHOCYTES PERCENT AUTO 30 % (21-46); MONOCYTES ABSOLUTE AUTO 0.62 K/mm3 (0.16-1.47); MONOCYTES PERCENT AUTO 13 % (4-13); Mean Corpuscular HGB 29.7 pg (26.0-34.0); Mean Corpuscular HGB Conc 32.4 g/dL (31.5-36.5); Mean Corpuscular Volume 92 fL (80-100); Mean Platelet Volume 10.6 fL (9.1-12.4); NEUTROPHILS ABSOLUTE AUTO 2.51 K/mm3 (1.96-9.15); NEUTROPHILS PERCENT AUTO 53 % (41-73); NRBC ABSOLUTE 0.02 K/mm3 (0.00-0.02); NRBC Auto 0.4 /100 WBC (0.0-0.2); Platelet Count 88 K/mm3 (150-400); RDW Coefficient Variation 16.3 % (11.7-14.2); RDW Standard Deviation 53.2 fL (35.1-46.3); Red Blood Cell Count 2.63 M/mm3 (4.30-5.90); White Blood Cell Count 4.79 K/mm3 (4.00-11.30)
[2023-06-14 07:53] LABS: Albumin, Blood 2.3 g/dL (3.4-5.0); Albumin/Globulin Ratio 0.5 (0.8-1.8); Bilirubin, Total 1.1 mg/dL (0.1-1.0); Bun/Creatinine Ratio 20.6 (12.0-20.0); Calcium, Blood 8.2 mg/dL (8.5-10.1); Creatinine, Blood 0.73 mg/dL (0.60-1.20); Globulin, Blood 4.6 g/dL (2.2-4.0); Potassium, Blood 3.5 mmol/L (3.5-5.5); Total Protein, Blood 6.9 g/dL (6.4-8.2)
[2023-06-14 08:09] LABS: Vancomycin, Trough 28.3 ug/mL (5.0-10.0)
[2023-06-14 12:35] VITALS: BP 120/79
[2023-06-14 15:23] VITALS: BP 122/81
[2023-06-14 16:02] LABS: Vancomycin, Trough 14.2 ug/mL (5.0-10.0)
--- NOTE | 2023-06-14 18:04 | NUR ---
SHIFT SUMMARY PT REMAINS ALERT AND ORIENTED. BP STABLE. HR CONTINUES TO BE IN AFIB IN THE 110'S. HR UP TO 120-130'S AT TIMES, BUT COMES RIGHT DOWN. O2 SATS REMAIN ABOVE 90% ON 5L NC. PT REPORTS FEELING SHORT OF BREATH WITH MINIMAL ACTIVITY. PT ABLE TO REPOSITION HIMSELF IN THE BED. PT USING THE URNIAL TO VOID AT BEDSIDE. WILL CONTINUE TO MONITOR AND REPORT TO ONCOMING RN
[2023-06-14 19:42] VITALS: BP 112/90
[2023-06-15 03:26] VITALS: BP 126/85
[2023-06-15 04:12] LABS: Hematocrit 23.9 % (37.0-53.0); Hemoglobin 7.7 g/dL (13.5-17.5); Mean Corpuscular HGB 29.3 pg (26.0-34.0); Mean Corpuscular HGB Conc 32.2 g/dL (31.5-36.5); Mean Corpuscular Volume 91 fL (80-100); RDW Coefficient Variation 16.1 % (11.7-14.2); RDW Standard Deviation 52.7 fL (35.1-46.3); Red Blood Cell Count 2.63 M/mm3 (4.30-5.90); White Blood Cell Count 4.95 K/mm3 (4.00-11.30)
[2023-06-15 04:13] LABS: NRBC ABSOLUTE 0.05 K/mm3 (0.00-0.02)
[2023-06-15 04:26] LABS: Bun/Creatinine Ratio 23.4 (12.0-20.0); Calcium, Blood 8.5 mg/dL (8.5-10.1); Creatinine, Blood 0.77 mg/dL (0.60-1.20); Mean Platelet Volume 11.2 fL (9.1-12.4); Platelet Count 104 K/mm3 (150-400)
--- NOTE | 2023-06-15 05:28 | NUR ---
SHIFT SUMMARY PT A/OX4. PT ABLE TO EXPRESS NEEDS AND CALLS APPROPIATELY. PT ALLOWED MOST Q2 TURNS DURING SHIFT, AT TIMES PT WOULD REQUEST TO REMAIN IN HIS "COMFORTABLE POSITION." PT EDUCATED ON THE IMPORTANCE OF FREQUENT TURNS. PT VSS THROUGHOUT SHIFT WITH O2 SATS IN THE 90'S ON 5L NC. PT HR MORE CONTROLED TODAY AFTER RECIEVING INCREASED DOSE ON PO METOPROLOL. NO REPORT OF CHEST PAIN/PRESSURE DURING SHIFT. PT REPORTED SOME SOB WITH MINIMAL TASKS SUCH "ADJUSTING MY BLACKET." SATS STABLE AT THESE TIMES. PT USING URINAL WHILE IN BED.
[2023-06-15 08:06] VITALS: BP 161/98
--- NOTE | 2023-06-15 13:30 | NUR ---
UPDATE PT REMAINS ALERT AND ORIENTED. VS STABLE. HR REMAINS NSR 90'S. PT DOES TACH UP TO 120-130'S WITH ACTIVITY, BUT COMES BACK DOWN. SATS REMAIN ABOVE 90% ON 5L NC. PT COMPLAINS OF HEADACHE FROM COUGHING, AND PT MEDICATED FOR BOTH HEADACHE AND COUGH PER EMAR. PT USING URINAL TO VOID. REPORT GIVEN TO MEDICAL FLOOR RN TO ASSUME CARE. PT TAKEN UP BY
[2023-06-15 13:44] VITALS: BP 123/79
--- NOTE | 2023-06-15 17:42 | NUR ---
SHIFT SUMMARY PATIENT TRANSFERRED TO MEDICAL FLOOR THIS SHIFT, ORIENTED TO ROOM. PLACED ON CONINTUOUS PULSE OX PER HIS REQUEST. VSS ON ARRIVAL. VOIDING ADEQUATELY. A/O X4. WILL CONTINUE TO MONITOR
[2023-06-15 19:11] VITALS: BP 105/86
--- NOTE | 2023-06-15 22:35 | NUR ---
RECORDING STUDIO SETUP WORKER REPORTS AFIB 150 AND RIGHT BACK DOWN TO AFIB 90'S. TM.
[2023-06-16 02:37] VITALS: BP 127/78
--- NOTE | 2023-06-16 03:29 | NUR ---
DOCTOR CALLED; PT C/O HEADACHE UNRELIEVED BY TYLENOL. DOCTOR LAMBERTO CALLED-ORDERED FOR A ONE TIME DOSE OF IBUPROFEN 600MG PO.
[2023-06-16 05:11] LABS: Hematocrit 21.4 % (37.0-53.0); Hemoglobin 6.9 g/dL (13.5-17.5); Mean Corpuscular HGB 29.5 pg (26.0-34.0); Mean Corpuscular HGB Conc 32.2 g/dL (31.5-36.5); Mean Corpuscular Volume 92 fL (80-100); Mean Platelet Volume 11.1 fL (9.1-12.4); NRBC ABSOLUTE 0.08 K/mm3 (0.00-0.02); NRBC Auto 1.3 /100 WBC (0.0-0.2); Platelet Count 109 K/mm3 (150-400); RDW Coefficient Variation 16.3 % (11.7-14.2); RDW Standard Deviation 53.4 fL (35.1-46.3); Red Blood Cell Count 2.34 M/mm3 (4.30-5.90); White Blood Cell Count 6.36 K/mm3 (4.00-11.30)
--- NOTE | 2023-06-16 05:17 | NUR ---
SHIFT SUMMARY PT IS ALERT AND ORIENTED TO PERSON, PLACE, AND SITUATION. PT HAS NOT SLEPT WELL THIS EVENING. PT HAD A 3 BEAT RUN OF SVT WITH 156 BPM-SEE PREVIOUS NOTES. PT REQUESTED SNACKS BEGINNING OF SHIFT. PT FELT OFF THIS SHIFT CHECKED BLOOD GLUCOSE CHECKED-191. PT STATE HE WAS WORRIED ABOUT GOING HOME BEFORE HE IS BETTER. PT HAD NO C/O PAIN OR COUGH THIS SHIFT. PT IS ABLE TO MAKE HIS NEEDS KNOWN. BED IS LOCKED IN THE LOWEST POSITION WITH CALL LIGHT IN REACH. NO S/S OF DISTRESS NOTED AT THIS TIME.
[2023-06-16 06:04] LABS: Bun/Creatinine Ratio 24.3 (12.0-20.0); Creatinine, Blood 0.7 mg/dL (0.60-1.20); Potassium, Blood 3.2 mmol/L (3.5-5.5)
[2023-06-16 07:31] VITALS: BP 125/70
[2023-06-16 08:31] LABS: Hemoglobin 8.1 g/dL (13.5-17.5)
--- NOTE | 2023-06-16 10:51 | NUR ---
LILIANA [employer] REPORTS PT CONVERTED FROM AFIB TO SR AT 0008 THIS AM. PATIENT REMAINS SR IN THE 70'S AT THIS TIME.
[2023-06-16 15:04] VITALS: BP 132/79
--- NOTE | 2023-06-16 18:16 | NUR ---
SHIFT SUMMARY A&OX4, COOPERATIVE WITH CARE, IRRITABLE AT TIMES. DENIES CP/PRESSURE, DIZZINESS, OR SOB. COMPLAINED OF 4/10 HEADACHE AND MEDICATED WITH TYLENOL. HGB WAS 8.1 FROM AM LABS. BLOOD TRANSFUSION ORDERS CANCELLED DUE TO BEING OUTSIDE OF PARAMETERS. BLOOD BANK REPORTED PATIENT HAS WARM AUTOANTIBODY HEMOLYTIC ANEMIA AND GETTING A UNIT OF BLOOD READY WOULD BE DELAYED IF NEEDED. PATIENT REPORTS BEING READY TO GO HOME. HE IS STILL ON 5LI O2 VIA NC. WORKED WITH PT/OT TODAY WITHOUT ANY PROBLEMS. NO ACUTE EVENTS THIS SHIFT. PATIENT IS CURRENTLY SITTING IN HIS BED WATCHING TV AND EATING DINNER. CALL LIGHT IS WITHIN REACH.
[2023-06-17 04:13] VITALS: BP 129/75
--- NOTE | 2023-06-17 05:03 | NUR ---
SHIFT SUMMARY 78 YR M ADMITTED ON 06/11/23 FOR HEMOPTYSIS. FULL CODE. NO ACUTE CHANGES THIS SHIFT. C/O HEADACHE THIS A.M AND GIVEN TYLENOL PER EMAR. PT SLEPT FOR SEVERAL HOURS THIS SHIFT BUT HAS MOSTLY LAYED IN BED AND WATCHED TV. HE STATED THAT HE IS VERY MUCH LOOKING FORWARD TO GOING HOME THIS MORNING. PT HAS BEEN PLEASANT AND COOPERATIVE WITH CARE AND HAS NOT SHOWN HIS GRUMPY SIDE THIS SHIFT.
[2023-06-17 07:46] LABS: Hematocrit 25.9 % (37.0-53.0); Hemoglobin 8.2 g/dL (13.5-17.5); Mean Corpuscular HGB 29.4 pg (26.0-34.0); Mean Corpuscular HGB Conc 31.7 g/dL (31.5-36.5); Mean Corpuscular Volume 93 fL (80-100); Mean Platelet Volume 11.4 fL (9.1-12.4); NRBC ABSOLUTE 0.07 K/mm3 (0.00-0.02); Platelet Count 144 K/mm3 (150-400); RDW Coefficient Variation 16.2 % (11.7-14.2); RDW Standard Deviation 53.5 fL (35.1-46.3); Red Blood Cell Count 2.79 M/mm3 (4.30-5.90); White Blood Cell Count 7.35 K/mm3 (4.00-11.30)
[2023-06-17 07:57] LABS: Albumin, Blood 2.6 g/dL (3.4-5.0); Albumin/Globulin Ratio 0.6 (0.8-1.8); Bilirubin, Total 0.8 mg/dL (0.1-1.0); Bun/Creatinine Ratio 19.1 (12.0-20.0); Calcium, Blood 8.7 mg/dL (8.5-10.1); Creatinine, Blood 0.79 mg/dL (0.60-1.20); Globulin, Blood 4.2 g/dL (2.2-4.0); Potassium, Blood 3.7 mmol/L (3.5-5.5); Total Protein, Blood 6.8 g/dL (6.4-8.2)
[2023-06-17 08:04] LABS: BAND PERCENT MAN 2 % (0-8); BASOPHILS PERCENT MAN 0 % (0-2); EOSINOPHILS PERCENT MAN 0 % (0-6); LYMPHOCYTES ABSOLUTE MAN 2.71 K/mm3 (0.84-5.20); LYMPHOCYTES PERCENT MAN 37 % (21-46); METAMYELOCYTE ABSOLUTE MAN 0.29 K/mm3 (0.00-0.00); METAMYELOCYTE PERCENT MAN 4 % (0-0); MONOCYTES ABSOLUTE MAN 0.29 K/mm3 (0.16-1.47); MONOCYTES PERCENT MAN 4 % (4-13); MYELOCYTE ABSOLUTE MAN 0.07 K/mm3 (0.00-0.00); MYELOCYTE PERCENT MAN 1 % (0-0); NEUTROPHILS ABSOLUTE MAN 3.96 K/mm3 (1.96-9.15); SEG NEUTROPHILS PERCENT MAN 52 % (41-73); TOTAL CELLS COUNTED 100
[2023-06-17 08:10] VITALS: BP 122/72
[2023-06-17] MEDS ORDERED: DOCU100 PO (08:19)
[2023-06-17] MEDS ORDERED: PRED20 PO (08:44)
[2023-06-17] MEDS ORDERED: BENZ100A PO (08:44)
[2023-06-17] MEDS ORDERED: Metoprolol Tart25 MG PO (08:44)
--- NOTE | 2023-06-17 13:57 | NUR ---
DISCHARGE PT A&0X4, COOPERATIVE WITH CARE, ANTSY TO DISCHARGE. DENIED ANY HEADACHE, CP/PRESSURE, SOB, OR DIZZINESS. NO PROBLEMS NOTED WITH AMBULATION. IV'S REMOVED. DISCHARGE PACKET DISCUSSED, EDUCATION HANDOUTS GIVEN, NO QUESTIONS OR CONCERNS FROM PATIENT. DISCHARGED VIA WHEELCHAIR TRANSPORT AT 1215.
== END 2023-06-17 12:20 | disposition home or self-care (01) | DRG 871 ==
LOC: ER 10:08 → ICUE 14:26 → PCU 06-12 21:49 → MEDS 06-15 13:34
PROVIDERS: Family Medicine; Family Medicine Adult Medicine; Hospitalist; Internal Medicine; Nurse Practitioner Acute Care; Student in an Organized Health Care Education/Training Program; ADMIT Internal Medicine
DX: A41.50 Gram-negative sepsis, unspecified (principal); J18.9 Pneumonia, unspecified organism; J96.01 Acute respiratory failure with hypoxia; D61.818 Other pancytopenia; J44.0 Chronic obstructive pulmonary disease with (acute) lower respiratory infection; I50.32 Chronic diastolic (congestive) heart failure; D84.9 Immunodeficiency, unspecified; I47.10 Supraventricular tachycardia, unspecified; R65.20 Severe sepsis without septic shock; I25.10 Atherosclerotic heart disease of native coronary artery without angina pectoris; E78.5 Hyperlipidemia, unspecified; E03.9 Hypothyroidism, unspecified; I48.0 Paroxysmal atrial fibrillation; J43.9 Emphysema, unspecified; I11.0 Hypertensive heart disease with heart failure; R31.29 Other microscopic hematuria; D64.9 Anemia, unspecified; E87.6 Hypokalemia; Z85.72 Personal history of non-Hodgkin lymphomas; Z86.73 Personal history of transient ischemic attack (TIA), and cerebral infarction without residual deficits; Z88.8 Allergy status to other drugs, medicaments and biological substances; Z79.52 Long term (current) use of systemic steroids; Z79.899 Other long term (current) drug therapy; I25.2 Old myocardial infarction
CPT/HCPCS: 0202U; 36415; 36430; 51701; 51798; 71046; 71260; 80048; 80053; 80202; 81001; 82607; 82746; 82803; 83010; 83605; 84145; 85014; 85018; 85025; 85027; 85045; 85379; 86850; 86870; 86900; 86901; 87040; 87070; 87106; 87205; 87633; 93005; 93010; 94640; 94664; 94762; 96361; 96365-59; 96375-59; 97116; 97161; 97165; 97530; 97535; 99285-25; A9270; C1751; J0692; J0696; J1459; J1650; J3370; J7030; J7050; J7512; P9035; Q9967

== ENCOUNTER → 2023-07-23 | Outpatient (CLI) | payer OTHER ==
[~2023-07-23] MED LIST changes: +BENZ100A PO; +DOCU100 PO; +Metoprolol Tart25 MG PO; +PRED20 PO; +SPIRIVA RESPIMAT4 G3 INH
[2023-07-23 10:20] LABS: Hematocrit 29.5 % (37.0-53.0); Hemoglobin 8.9 g/dL (13.5-17.5); Mean Corpuscular HGB 25.8 pg (26.0-34.0); Mean Corpuscular HGB Conc 30.2 g/dL (31.5-36.5); Mean Corpuscular Volume 86 fL (80-100); RDW Coefficient Variation 15.4 % (11.7-14.2); Red Blood Cell Count 3.45 M/mm3 (4.30-5.90); White Blood Cell Count 2.77 K/mm3 (4.00-11.30)
[2023-07-23 10:34] LABS: Platelet Count 7 K/mm3 (150-400)
[2023-07-23 10:38] LABS: BASOPHILS PERCENT MAN 0 % (0-2); EOSINOPHILS ABSOLUTE MAN 0.22 K/mm3 (0.00-0.68); EOSINOPHILS PERCENT MAN 8 % (0-6); LYMPHOCYTES ABSOLUTE MAN 1.63 K/mm3 (0.84-5.20); LYMPHOCYTES PERCENT MAN 59 % (21-46); MONOCYTES ABSOLUTE MAN 0.19 K/mm3 (0.16-1.47); MONOCYTES PERCENT MAN 7 % (4-13); NEUTROPHILS ABSOLUTE MAN 0.72 K/mm3 (1.96-9.15); SEG NEUTROPHILS PERCENT MAN 26 % (41-73); TOTAL CELLS COUNTED 100
[2023-07-23 10:50] LABS: Albumin/Globulin Ratio 0.7 (0.8-1.8); Bilirubin, Total 0.3 mg/dL (0.1-1.0); Bun/Creatinine Ratio 19.6 (12.0-20.0); Calcium, Blood 8.1 mg/dL (8.5-10.1); Creatinine, Blood 0.92 mg/dL (0.60-1.20); Globulin, Blood 4.5 g/dL (2.2-4.0); Magnesium, Blood 2.3 mg/dL (1.6-2.4); Potassium, Blood 4.4 mmol/L (3.5-5.5); Total Protein, Blood 7.5 g/dL (6.4-8.2)
[2023-07-25 01:07] LABS: HBSAG SCREEN Negative (Negative); HEP B CORE AB, TOT Negative (Negative)
== END | disposition home or self-care (01) ==
LOC: LAB SHORT 10:09 → LAB 10:09
PROVIDERS: Internal Medicine Hematology & Oncology
DX: D61.818 Other pancytopenia (principal)
CPT/HCPCS: 80053; 83735; 85025; 86704; 87340

== ENCOUNTER 2023-08-02 10:11 | Emergency (ER) | payer OTHER ==
[~2023-08-02] VITALS: Ht 182.9 cm; Wt 78.9 kg
[2023-08-02] MEDS ORDERED: Atarax10 MG PO (10:55)
[2023-08-02] MEDS ORDERED: NITROGLYCERIN0.4 M3 SL (10:55)
[2023-08-02 10:56] LABS: Hematocrit 28.5 % (37.0-53.0); Hemoglobin 8.5 g/dL (13.5-17.5); Mean Corpuscular HGB 24.8 pg (26.0-34.0); Mean Corpuscular HGB Conc 29.8 g/dL (31.5-36.5); Mean Corpuscular Volume 83 fL (80-100); Mean Platelet Volume 12.6 fL (9.1-12.4); Platelet Count 90 K/mm3 (150-400); RDW Coefficient Variation 15.8 % (11.7-14.2); RDW Standard Deviation 47.8 fL (35.1-46.3); Red Blood Cell Count 3.43 M/mm3 (4.30-5.90); White Blood Cell Count 2.19 K/mm3 (4.00-11.30)
[2023-08-02 11:15] LABS: Albumin/Globulin Ratio 0.7 (0.8-1.8); BASOPHILS ABSOLUTE MAN 0.02 K/mm3 (0.00-0.23); BASOPHILS PERCENT MAN 1 % (0-2); Bilirubin, Total 0.3 mg/dL (0.1-1.0); Bun/Creatinine Ratio 19.3 (12.0-20.0); Calcium, Blood 8.4 mg/dL (8.5-10.1); Creatinine, Blood 0.88 mg/dL (0.60-1.20); EOSINOPHILS ABSOLUTE MAN 0.06 K/mm3 (0.00-0.68); EOSINOPHILS PERCENT MAN 3 % (0-6); Globulin, Blood 4.5 g/dL (2.2-4.0); LYMPHOCYTES % ATYPICAL MANUAL 1 % (0-0); LYMPHOCYTES ABSOLUTE MAN 1.09 K/mm3 (0.84-5.20); LYMPHOCYTES PERCENT MAN 49 % (21-46); MONOCYTES ABSOLUTE MAN 0.32 K/mm3 (0.16-1.47); MONOCYTES PERCENT MAN 15 % (4-13); MYELOCYTE ABSOLUTE MAN 0.02 K/mm3 (0.00-0.00); MYELOCYTE PERCENT MAN 1 % (0-0); NEUTROPHILS ABSOLUTE MAN 0.65 K/mm3 (1.96-9.15); Potassium, Blood 4.1 mmol/L (3.5-5.5); SEG NEUTROPHILS PERCENT MAN 30 % (41-73); TOTAL CELLS COUNTED 100; Total Protein, Blood 7.5 g/dL (6.4-8.2)
[2023-08-02 13:30] VITALS: BP 118/76
== END 2023-08-02 13:47 | disposition home or self-care (01) ==
LOC: ER 10:11
PROVIDERS: Physician Assistant
DX: R06.02 Shortness of breath (principal); D61.818 Other pancytopenia; I25.10 Atherosclerotic heart disease of native coronary artery without angina pectoris; J44.9 Chronic obstructive pulmonary disease, unspecified; I11.0 Hypertensive heart disease with heart failure; I50.32 Chronic diastolic (congestive) heart failure; E78.5 Hyperlipidemia, unspecified; E03.9 Hypothyroidism, unspecified; I48.0 Paroxysmal atrial fibrillation; Z87.891 Personal history of nicotine dependence; Z79.899 Other long term (current) drug therapy
CPT/HCPCS: 71046; 80053; 83735; 83880; 84484; 85025; 93005; 93010; 99285-25

== ENCOUNTER 2023-08-15 12:13 | Emergency (ER) | payer OTHER ==
[~2023-08-15] VITALS: Ht 182.9 cm; Wt 77.1 kg
[~2023-08-15 12:13] MED LIST changes: +Atarax10 MG PO; +NITROGLYCERIN0.4 M3 SL
[2023-08-15 12:57] LABS: Hematocrit 28.6 % (37.0-53.0); Hemoglobin 8.6 g/dL (13.5-17.5); Mean Corpuscular HGB 24.9 pg (26.0-34.0); Mean Corpuscular HGB Conc 30.1 g/dL (31.5-36.5); Mean Corpuscular Volume 83 fL (80-100); RDW Coefficient Variation 17.2 % (11.7-14.2); RDW Standard Deviation 49.6 fL (35.1-46.3); Red Blood Cell Count 3.46 M/mm3 (4.30-5.90); White Blood Cell Count 1.58 K/mm3 (4.00-11.30)
[2023-08-15 13:13] LABS: Albumin, Blood 2.9 g/dL (3.4-5.0); Albumin/Globulin Ratio 0.6 (0.8-1.8); Bilirubin, Total 0.8 mg/dL (0.1-1.0); Bun/Creatinine Ratio 21.6 (12.0-20.0); Calcium, Blood 8.7 mg/dL (8.5-10.1); Creatinine, Blood 0.93 mg/dL (0.60-1.20); Globulin, Blood 5.2 g/dL (2.2-4.0); Potassium, Blood 3.7 mmol/L (3.5-5.5); Total Protein, Blood 8.1 g/dL (6.4-8.2)
[2023-08-15 13:58] LABS: BAND PERCENT MAN 2 % (0-8); BASOPHILS PERCENT MAN 8 % (0-2); EOSINOPHILS PERCENT MAN 8 % (0-6); LYMPHOCYTES % ATYPICAL MANUAL 2 % (0-0); LYMPHOCYTES PERCENT MAN 38 % (21-46); MONOCYTES PERCENT MAN 35 % (4-13); MYELOCYTE PERCENT MAN 2 % (0-0); SEG NEUTROPHILS PERCENT MAN 5 % (41-73); TOTAL CELLS COUNTED 100
[2023-08-15 14:04] LABS: IMMATURE GRAN ABSOLUTE AUTO 0.05 K/mm3 (0.00-0.10); IMMATURE GRAN PERCENT AUTO 3 % (0-1); LYMPHOCYTES ABSOLUTE AUTO 0.65 K/mm3 (0.84-5.20); LYMPHOCYTES PERCENT AUTO 41 % (21-46); MONOCYTES ABSOLUTE AUTO 0.59 K/mm3 (0.16-1.47); MONOCYTES PERCENT AUTO 37 % (4-13); NEUTROPHILS ABSOLUTE AUTO 0.15 K/mm3 (1.96-9.15); NEUTROPHILS PERCENT AUTO 10 % (41-73)
[2023-08-15 14:05] LABS: Platelet Count 8 K/mm3 (150-400)
[2023-08-15] MEDS ORDERED: PRED20 PO ×2 (16:07→17:09)
[2023-08-15 17:00] VITALS: BP 138/88
== END 2023-08-15 17:48 | disposition home or self-care (01) ==
LOC: ER 12:13
PROVIDERS: Student in an Organized Health Care Education/Training Program
DX: D61.818 Other pancytopenia (principal); D69.6 Thrombocytopenia, unspecified; J44.9 Chronic obstructive pulmonary disease, unspecified; I48.0 Paroxysmal atrial fibrillation; I11.0 Hypertensive heart disease with heart failure; I50.30 Unspecified diastolic (congestive) heart failure; E78.5 Hyperlipidemia, unspecified; E03.9 Hypothyroidism, unspecified; I25.2 Old myocardial infarction; I25.10 Atherosclerotic heart disease of native coronary artery without angina pectoris; Z79.52 Long term (current) use of systemic steroids; Z79.899 Other long term (current) drug therapy; Z98.61 Coronary angioplasty status
CPT/HCPCS: 36430; 71046; 80053; 83880; 85025; 85730; 86850; 86870; 86880; 86900; 86901; 93005; 93010; 99284-25; J7030; J7512; P9035

== ENCOUNTER → 2023-08-21 | Outpatient (CLI) | payer OTHER ==
[2023-08-21 10:41] LABS: Hematocrit 28.1 % (37.0-53.0); Hemoglobin 8.3 g/dL (13.5-17.5); Mean Corpuscular HGB 24.3 pg (26.0-34.0); Mean Corpuscular HGB Conc 29.5 g/dL (31.5-36.5); Mean Corpuscular Volume 82 fL (80-100); RDW Coefficient Variation 18.4 % (11.7-14.2); RDW Standard Deviation 53.7 fL (35.1-46.3); Red Blood Cell Count 3.42 M/mm3 (4.30-5.90); White Blood Cell Count 1.45 K/mm3 (4.00-11.30)
[2023-08-21 11:08] LABS: Platelet Count 1 K/mm3 (150-400)
[2023-08-21 12:00] LABS: BASOPHILS ABSOLUTE MAN 0.08 K/mm3 (0.00-0.23); BASOPHILS PERCENT MAN 6 % (0-2); EOSINOPHILS ABSOLUTE MAN 0.23 K/mm3 (0.00-0.68); EOSINOPHILS PERCENT MAN 16 % (0-6); LYMPHOCYTES ABSOLUTE MAN 0.69 K/mm3 (0.84-5.20); LYMPHOCYTES PERCENT MAN 48 % (21-46); MONOCYTES ABSOLUTE MAN 0.43 K/mm3 (0.16-1.47); MONOCYTES PERCENT MAN 30 % (4-13); TOTAL CELLS COUNTED 50
== END ==
LOC: LAB SHORT 10:07 → LAB 10:07
PROVIDERS: Internal Medicine Hematology & Oncology
DX: D69.3 Immune thrombocytopenic purpura (principal); D61.818 Other pancytopenia
CPT/HCPCS: 85025

== ENCOUNTER 2023-08-29 09:29 | Inpatient (IN) | payer OTHER ==
[~2023-08-29] VITALS: Ht 182.9 cm; Wt 69.4 kg
[2023-08-29] VITALS (33 sets, daily range): BP systolic 90–144; BP diastolic 58–107
[2023-08-29 10:08] LABS: Hematocrit 22.8 % (37.0-53.0); Hemoglobin 6.6 g/dL (13.5-17.5); Mean Corpuscular HGB 24.1 pg (26.0-34.0); Mean Corpuscular HGB Conc 28.9 g/dL (31.5-36.5); Mean Corpuscular Volume 83 fL (80-100); RDW Coefficient Variation 18.5 % (11.7-14.2); RDW Standard Deviation 55.2 fL (35.1-46.3); Red Blood Cell Count 2.74 M/mm3 (4.30-5.90); White Blood Cell Count 1.01 K/mm3 (4.00-11.30)
[2023-08-29 10:16] LABS: Platelet Count 0 K/mm3 (150-400)
[2023-08-29 10:23] LABS: Bun/Creatinine Ratio 30.9 (12.0-20.0); Calcium, Blood 8.4 mg/dL (8.5-10.1); Creatinine, Blood 0.81 mg/dL (0.60-1.20); Potassium, Blood 4.3 mmol/L (3.5-5.5)
[2023-08-29 11:10] LABS: BAND PERCENT MAN 10 % (0-8); BASOPHILS PERCENT MAN 0 % (0-2); EOSINOPHILS PERCENT MAN 0 % (0-6); LYMPHOCYTES % ATYPICAL MANUAL 2 % (0-0); LYMPHOCYTES PERCENT MAN 28 % (21-46); MONOCYTES PERCENT MAN 30 % (4-13); SEG NEUTROPHILS PERCENT MAN 30 % (41-73); TOTAL CELLS COUNTED 50
[2023-08-29 16:46] LABS: Hematocrit 26.6 % (37.0-53.0); Hemoglobin 7.8 g/dL (13.5-17.5); Mean Corpuscular HGB 23.9 pg (26.0-34.0); Mean Corpuscular HGB Conc 29.3 g/dL (31.5-36.5); Mean Corpuscular Volume 82 fL (80-100); NRBC ABSOLUTE 0.02 K/mm3 (0.00-0.02); RDW Coefficient Variation 18.5 % (11.7-14.2); Red Blood Cell Count 3.26 M/mm3 (4.30-5.90)
[2023-08-29 16:50] LABS: BASOPHILS ABSOLUTE AUTO 0.01 K/mm3 (0.00-0.23); BASOPHILS PERCENT AUTO 2 % (0-2); EOSINOPHILS PERCENT AUTO 0 % (0-6); IMMATURE GRAN ABSOLUTE AUTO 0.03 K/mm3 (0.00-0.10); IMMATURE GRAN PERCENT AUTO 6 % (0-1); LYMPHOCYTES ABSOLUTE AUTO 0.22 K/mm3 (0.84-5.20); LYMPHOCYTES PERCENT AUTO 44 % (21-46); MONOCYTES ABSOLUTE AUTO 0.07 K/mm3 (0.16-1.47); MONOCYTES PERCENT AUTO 14 % (4-13); NEUTROPHILS ABSOLUTE AUTO 0.17 K/mm3 (1.96-9.15); NEUTROPHILS PERCENT AUTO 34 % (41-73)
[2023-08-29 16:54] LABS: Platelet Count 2 K/mm3 (150-400)
--- NOTE | 2023-08-29 18:08 | NUR ---
Pt seen in ER her came in by EMS. pt aly anxious states been having more headaches and severe ringing in his ears. He is having more shortness of breath these days. denies nausea he is loosing weight. spoke with patient about his support systems. He has a son that lives in [facility]. He states he lives alone and has two large dogs. He came in for a transfussion and then plans to go home to his dogs. Discussed that he is to sick to leave the hospital. Review of prognosis. He feels he can get better. "Review of failed transfussions and decline. [facility] [place] [facility]. He has not made and appointment yet. Kps score is 30%. will notify son of his decline. will need to address his animals with the amado.
--- NOTE | 2023-08-29 19:08 | NUR ---
SUMMARY PT ADMITTED TO ICU 8 FROM ER AT 1545. PT IS A/O X4. HAS HAD INCREASED SOB AT HOME. ON 8L HFNC. HAVING HEMOPTYSIS THAT PT STATES HAS BEEN HAPPENING ON AND OFF SINCE THE SUMMER. PT STATES HE HAS BEEN FEELING WEAK AT HOME WELL. PT IS PALE. GOT ONE UNIT OF PLATELETS IN ER AND A SECOND UNIT JUST FINISHED. PER BLOOD BANK THERE IS NOT ANY PRBC'S THAT MATCH PT'S BLOOD TYPE TO GIVE TONIGHT. HOPEFULLY THERE WILL BE SOME AVAILABLE TOMORROW. DR. SALDANA NOTIFIED. IV IGG STARTED AND TITRATED PER PHARMACY SUGGESTION. IV ABX ALSO STARTED. PT IS WATCHING TV, NO SIGN OF DISTRESS.
--- NOTE | 2023-08-29 19:47 | NUR ---
Pt care assumed at 1900. Pt is sitting up in bed watching TV. He is A&Ox4 and states the he is feeling better. He is currently on 4L NC and denies any SOB. Pt currently has IVIG running @ goal of 4 ml/kg/min. He denies any N/V/D or pain. Vital signs are stable.
[2023-08-30] VITALS (43 sets, daily range): BP systolic 87–140; BP diastolic 48–108
[2023-08-30 03:54] LABS: BASOPHILS PERCENT AUTO 0 % (0-2); EOSINOPHILS PERCENT AUTO 0 % (0-6); Hematocrit 20.4 % (37.0-53.0); IMMATURE GRAN ABSOLUTE AUTO 0.03 K/mm3 (0.00-0.10); IMMATURE GRAN PERCENT AUTO 1 % (0-1); LYMPHOCYTES ABSOLUTE AUTO 0.64 K/mm3 (0.84-5.20); LYMPHOCYTES PERCENT AUTO 24 % (21-46); MONOCYTES ABSOLUTE AUTO 0.91 K/mm3 (0.16-1.47); MONOCYTES PERCENT AUTO 34 % (4-13); Mean Corpuscular HGB 23.9 pg (26.0-34.0); Mean Corpuscular HGB Conc 29.4 g/dL (31.5-36.5); Mean Corpuscular Volume 81 fL (80-100); NEUTROPHILS ABSOLUTE AUTO 1.12 K/mm3 (1.96-9.15); NEUTROPHILS PERCENT AUTO 42 % (41-73); NRBC ABSOLUTE 0.02 K/mm3 (0.00-0.02); NRBC Auto 0.7 /100 WBC (0.0-0.2); RDW Coefficient Variation 18.5 % (11.7-14.2); RDW Standard Deviation 53.4 fL (35.1-46.3); Red Blood Cell Count 2.51 M/mm3 (4.30-5.90)
[2023-08-30 04:04] LABS: Platelet Count 9 K/mm3 (150-400)
[2023-08-30 04:11] LABS: Albumin, Blood 2.6 g/dL (3.4-5.0); Albumin/Globulin Ratio 0.5 (0.8-1.8); Bilirubin, Total 0.6 mg/dL (0.1-1.0); Bun/Creatinine Ratio 33.3 (12.0-20.0); Calcium, Blood 8.3 mg/dL (8.5-10.1); Creatinine, Blood 0.78 mg/dL (0.60-1.20); Globulin, Blood 5.4 g/dL (2.2-4.0); Potassium, Blood 4.4 mmol/L (3.5-5.5)
--- NOTE | 2023-08-30 18:10 | NUR ---
SUMMARY PT A/O X4. USES CALL LIGHT APPROPRIATELY. GOT OOB TO CHAIR FOR LUNCH TODAY. MINIMAL 1 PERSON ASSIST TO MANAGE LINES AND CORDS. PT IS ANXIOUS TO GET OUT OF HOSPITAL. PT IS WANTING TO TRANSFER HIS CARE TO [facility] TO BE CLOSER TO HIS SON. LEFT A MESSAGE FOR CARE MANAGEMENT. PT GOT ONE UNIT OF PRBC'S ON THIS SHIFT FOR TOTAL OF 2 UNITS. ALSO GOT ANOTHER ROUND OF IV IGG. LS HAD FINE CRACKLES IN BASES THIS AM. ONE DOSE OF LASIX GIVEN AFTER TRANSFUSION WITH GOOD RESULT. SOB SEEMS IMPROVED FROM YESTERDAY. PT C/O JAMAR, DR. SALDANA NOTIFIED, NO NEW ORDERS. NO ACUTE CHANGES THIS SHIFT.
[2023-08-31] VITALS (7 sets, daily range): BP systolic 115–155; BP diastolic 63–92
[2023-08-31 04:32] LABS: BASOPHILS ABSOLUTE AUTO 0.01 K/mm3 (0.00-0.23); BASOPHILS PERCENT AUTO 0 % (0-2); EOSINOPHILS ABSOLUTE AUTO 0.07 K/mm3 (0.00-0.68); EOSINOPHILS PERCENT AUTO 2 % (0-6); Hematocrit 27.9 % (37.0-53.0); Hemoglobin 8.8 g/dL (13.5-17.5); IMMATURE GRAN ABSOLUTE AUTO 0.08 K/mm3 (0.00-0.10); IMMATURE GRAN PERCENT AUTO 2 % (0-1); LYMPHOCYTES ABSOLUTE AUTO 0.88 K/mm3 (0.84-5.20); LYMPHOCYTES PERCENT AUTO 22 % (21-46); MONOCYTES ABSOLUTE AUTO 1.16 K/mm3 (0.16-1.47); MONOCYTES PERCENT AUTO 29 % (4-13); Mean Corpuscular HGB 25.7 pg (26.0-34.0); Mean Corpuscular HGB Conc 31.5 g/dL (31.5-36.5); Mean Corpuscular Volume 82 fL (80-100); NEUTROPHILS ABSOLUTE AUTO 1.81 K/mm3 (1.96-9.15); NEUTROPHILS PERCENT AUTO 45 % (41-73); NRBC ABSOLUTE 0.03 K/mm3 (0.00-0.02); NRBC Auto 0.7 /100 WBC (0.0-0.2); RDW Coefficient Variation 17.9 % (11.7-14.2); RDW Standard Deviation 51.8 fL (35.1-46.3); Red Blood Cell Count 3.42 M/mm3 (4.30-5.90); White Blood Cell Count 4.01 K/mm3 (4.00-11.30)
[2023-08-31 04:34] LABS: Platelet Count 11 K/mm3 (150-400)
[2023-08-31 04:53] LABS: Anion Gap 7 mmol/L (6-16); Blood Urea Nitrogen 31 mg/dL (8-24); Bun/Creatinine Ratio 33.9 (12.0-20.0); CO2, Blood 24 mmol/L (21-32); Calcium, Blood 8.2 mg/dL (8.5-10.1); Chloride, Blood 105 mmol/L (98-108); Creatinine, Blood 0.91 mg/dL (0.60-1.20); Glomerular Filtration Rate 87 (60-); Glucose, Blood 98 mg/dL (70-99); Potassium, Blood 3.4 mmol/L (3.5-5.5); Sodium, Blood 136 mmol/L (136-145); Vancomycin, Trough 12.8 ug/mL (5.0-10.0)
--- NOTE | 2023-08-31 07:01 | NUR ---
SHIFT SUMMARY: PT SITTING UP COMFORTABLY IN BED AND STATES THAT HE IS FEELING ABOUT THE SAME. HE HAD A UNEVENTFUL NIGHT. HE CONTINUED TO REQUIRE 6-10L NC WITH AN INTERMITTENT COUGH THAT WAS PRODUTIVE WITH RED SPUTUM. HE DENIES ANY CURRENT CHEST PAIN OR INCREASED SHORTNESS OF BREATH. HE DID REQUEST THAT HIS ONCOLOGIST BE CONTACTED ABOUT POSSIBLY TRANSFERING TO [facility] FOR A MORE EXTENSIVE WORKUP. I INFORMED THAT PT I WOULD PASS HIS REQUEST ON TO CHARGE NURS AND DAY SHIFT. PT AGREED WITH PLAN AND STATED THAT ALL HIS QUESTIONS WERE ANSWERED APPROPRIATLY.
[2023-08-31 13:43] LABS: Magnesium, Blood 2.2 mg/dL (1.6-2.4); Phosphorus, Blood 3.5 mg/dL (2.5-4.9)
--- NOTE | 2023-08-31 18:16 | NUR ---
SUMMARY PT A/O X4. SOB IMPROVED TODAY. O2 DOWN TO 5L HFNC. STILL HAVING HEMOPTYSIS BUT LESS THAN PRIOR DAYS. CONVERTED TO AFIB THIS AM AROUND 0930 ASYMPTOMATIC RATE 90-120, DR. SALDANA NOTIFIED. DOWNGRADED TO PCU STATUS TODAY. NO OTHER CHANGES. PT USES CALL LIGHT APPROPRIATELY.
--- NOTE | 2023-08-31 21:37 | NUR ---
RECEIVED INTO CARE AT 1900 REPORTS GIVEN BY KAYLYN GARCIA. WILL/LABS/REPORTS REVIEWED. PT AWAKE LYING IN BED WATCHING TV. NO VOICED CONCERS BY PT. IN NO DISTRESS, IS COMFORTABLE. CALL BONE IN REACH.
[2023-09-01] VITALS (9 sets, daily range): BP systolic 92–130; BP diastolic 71–84
[2023-09-01 03:40] LABS: BASOPHILS ABSOLUTE AUTO 0.01 K/mm3 (0.00-0.23); BASOPHILS PERCENT AUTO 0 % (0-2); EOSINOPHILS ABSOLUTE AUTO 0.05 K/mm3 (0.00-0.68); EOSINOPHILS PERCENT AUTO 2 % (0-6); Hemoglobin 10.8 g/dL (13.5-17.5); IMMATURE GRAN ABSOLUTE AUTO 0.05 K/mm3 (0.00-0.10); IMMATURE GRAN PERCENT AUTO 2 % (0-1); LYMPHOCYTES ABSOLUTE AUTO 0.79 K/mm3 (0.84-5.20); LYMPHOCYTES PERCENT AUTO 26 % (21-46); MONOCYTES PERCENT AUTO 39 % (4-13); Mean Corpuscular HGB 25.2 pg (26.0-34.0); Mean Corpuscular HGB Conc 30.9 g/dL (31.5-36.5); Mean Corpuscular Volume 82 fL (80-100); NEUTROPHILS PERCENT AUTO 32 % (41-73); NRBC ABSOLUTE 0.03 K/mm3 (0.00-0.02); RDW Coefficient Variation 18.3 % (11.7-14.2); RDW Standard Deviation 52.9 fL (35.1-46.3); Red Blood Cell Count 4.28 M/mm3 (4.30-5.90)
[2023-09-01 03:45] LABS: Platelet Count 13 K/mm3 (150-400)
[2023-09-01 03:54] LABS: Albumin, Blood 2.7 g/dL (3.4-5.0); Anion Gap 6 mmol/L (6-16); Blood Urea Nitrogen 33 mg/dL (8-24); Bun/Creatinine Ratio 39.1 (12.0-20.0); CO2, Blood 25 mmol/L (21-32); Calcium, Blood 8.4 mg/dL (8.5-10.1); Chloride, Blood 107 mmol/L (98-108); Creatinine, Blood 0.84 mg/dL (0.60-1.20); Glomerular Filtration Rate 90 (60-); Glucose, Blood 102 mg/dL (70-99); Magnesium, Blood 2.3 mg/dL (1.6-2.4); Phosphorus, Blood 3.8 mg/dL (2.5-4.9); Potassium, Blood 3.6 mmol/L (3.5-5.5); Sodium, Blood 138 mmol/L (136-145)
[2023-09-01 03:56] LABS: Vancomycin, Trough 15.4 ug/mL (5.0-10.0)
--- NOTE | 2023-09-01 06:31 | NUR ---
SLEPT OFF AND ON THROUGHOUT NIGHT. REMAINED IN AFIB 90-100S. [id number] ON 5L HFNC. VOIDING USING URINALS. VSS.
--- NOTE | 2023-09-01 17:34 | NUR ---
SHIFT SUMMARY PATIENT WORKED WITH PHYSICAL THERAPY TODAY AND WALKED AROUND IN ROOM WITH GAIT BELT AND WALKER. USED URINAL AT BEDSIDE TO VOID WITH GOOD URINE OUTPUT. TOLERATED PO INTAKE WELL. BRIEF PERIODS OF RVR WORSE WITH EXERTION INTO 140'S, CONTROLLED RATE WITH NO INTERVENTION. NO BM THIS SHIFT. NO OTHER CHANGES THIS SHIFT.
[2023-09-02] VITALS: BP 130/81
[2023-09-02 04:58] LABS: BASOPHILS ABSOLUTE AUTO 0.01 K/mm3 (0.00-0.23); BASOPHILS PERCENT AUTO 0 % (0-2); EOSINOPHILS PERCENT AUTO 4 % (0-6); Hematocrit 34.4 % (37.0-53.0); Hemoglobin 10.4 g/dL (13.5-17.5); IMMATURE GRAN ABSOLUTE AUTO 0.05 K/mm3 (0.00-0.10); IMMATURE GRAN PERCENT AUTO 2 % (0-1); LYMPHOCYTES ABSOLUTE AUTO 0.87 K/mm3 (0.84-5.20); LYMPHOCYTES PERCENT AUTO 36 % (21-46); MONOCYTES ABSOLUTE AUTO 0.75 K/mm3 (0.16-1.47); MONOCYTES PERCENT AUTO 31 % (4-13); Mean Corpuscular HGB 25.3 pg (26.0-34.0); Mean Corpuscular HGB Conc 30.2 g/dL (31.5-36.5); Mean Corpuscular Volume 84 fL (80-100); NEUTROPHILS ABSOLUTE AUTO 0.61 K/mm3 (1.96-9.15); NEUTROPHILS PERCENT AUTO 26 % (41-73); RDW Coefficient Variation 18.1 % (11.7-14.2); RDW Standard Deviation 54.4 fL (35.1-46.3); Red Blood Cell Count 4.11 M/mm3 (4.30-5.90); White Blood Cell Count 2.39 K/mm3 (4.00-11.30)
[2023-09-02 05:13] LABS: Platelet Count 5 K/mm3 (150-400)
[2023-09-02 05:16] LABS: Bun/Creatinine Ratio 38.5 (12.0-20.0); Calcium, Blood 8.5 mg/dL (8.5-10.1); Creatinine, Blood 0.94 mg/dL (0.60-1.20); Potassium, Blood 4.2 mmol/L (3.5-5.5)
[2023-09-02 05:24] VITALS: BP 121/75
[2023-09-02 05:30] VITALS: BP 121/75
[2023-09-02 08:16] VITALS: BP 118/83
[2023-09-02] MEDS ORDERED: ACET325 PO (15:23)
[2023-09-02] MEDS ORDERED: LEVO750 PO ×2 (15:24→15:25)
[2023-09-02] MEDS ORDERED: MELATONIN5 M1 PO (15:27)
[2023-09-02] MEDS ORDERED: PANT40 PO (15:29)
[2023-09-02] MEDS ORDERED: TAMS.4ER PO (15:34)
[2023-09-02] MEDS ORDERED: TIOT18 INH (15:35)
--- NOTE | 2023-09-02 16:23 | NUR ---
DISCHARGE MEDS FAXED TO [facility]. DISCHARGE INSTRUCTIONS REVIEWED WITH PATIENT AND QUESTIONS ANSWERED. IV REMOVED AND PATIENT DRESSED. NURSING MEDICAL RADIATION TECH TO CALL FOR RIDE HOME.
== END 2023-09-02 17:30 | disposition home or self-care (01) | DRG 808 ==
LOC: ER 09:29 → ICUE 14:28
PROVIDERS: Emergency Medicine; ADMIT Internal Medicine
PROC: 30233S1 Transfusion of Nonautologous Globulin into Peripheral Vein, Percutaneous Approach (ICD-10-PCS; principal; 2023-08-29)
PROC: 30233R1 Transfusion of Nonautologous Platelets into Peripheral Vein, Percutaneous Approach (ICD-10-PCS; 2023-08-29)
PROC: 30233N1 Transfusion of Nonautologous Red Blood Cells into Peripheral Vein, Percutaneous Approach (ICD-10-PCS; 2023-08-29)
PROC: 5A0935A Assistance with Respiratory Ventilation, Less than 24 Consecutive Hours, High Flow/Velocity Cannula (ICD-10-PCS; 2023-08-29)
PROC: 3E03329 Introduction of Other Anti-infective into Peripheral Vein, Percutaneous Approach (ICD-10-PCS; 2023-08-29)
DX: D70.9 Neutropenia, unspecified (principal); A41.9 Sepsis, unspecified organism; R65.20 Severe sepsis without septic shock; J96.21 Acute and chronic respiratory failure with hypoxia; J18.9 Pneumonia, unspecified organism; J44.0 Chronic obstructive pulmonary disease with (acute) lower respiratory infection; I50.32 Chronic diastolic (congestive) heart failure; E87.20 Acidosis, unspecified; I48.20 Chronic atrial fibrillation, unspecified; T45.1X5A Adverse effect of antineoplastic and immunosuppressive drugs, initial encounter; D61.810 Antineoplastic chemotherapy induced pancytopenia; K21.9 Gastro-esophageal reflux disease without esophagitis; N40.0 Benign prostatic hyperplasia without lower urinary tract symptoms; I25.10 Atherosclerotic heart disease of native coronary artery without angina pectoris; I25.82 Chronic total occlusion of coronary artery; I11.0 Hypertensive heart disease with heart failure; E78.5 Hyperlipidemia, unspecified; D61.818 Other pancytopenia; D72.820 Lymphocytosis (symptomatic); E03.9 Hypothyroidism, unspecified; R19.7 Diarrhea, unspecified; I25.2 Old myocardial infarction; Z95.5 Presence of coronary angioplasty implant and graft; Z86.73 Personal history of transient ischemic attack (TIA), and cerebral infarction without residual deficits; Z87.11 Personal history of peptic ulcer disease; Z99.81 Dependence on supplemental oxygen; Z79.52 Long term (current) use of systemic steroids; Z87.891 Personal history of nicotine dependence
CPT/HCPCS: 36415; 36430; 71045; 80048; 80053; 80069; 80202; 82330; 83605; 83735; 84100; 84132; 85025; 86850; 86900; 86901; 86902; 86920; 86922; 93005; 93010; 94640; 94664; 94762; 96365; 96366; 96368; 96375; 97110; 97112; 97161; 99285-25; A9270; J0456; J0696; J1459; J1940; J2543; J2930; J3370; J7050; J7512; P9016; P9035

== ENCOUNTER 2023-09-05 02:54 | Day surgery (SDC) | payer MEDICARE ==
[~2023-09-05 02:54] MED LIST changes: +ACET325 PO; +LEVO750 PO; +MELATONIN5 M1 PO; +TAMS.4ER PO; +TIOT18 INH
[2023-09-05 13:30] VITALS: BP 82/58
[2023-09-05 13:51] VITALS: BP 80/56
[2023-09-05 14:56] VITALS: BP 88/61
== END 2023-09-05 14:56 | disposition home or self-care (01) ==
LOC: ATC 02:54
DX: D69.3 Immune thrombocytopenic purpura (principal); D61.818 Other pancytopenia; E78.5 Hyperlipidemia, unspecified; I10 Essential (primary) hypertension; I25.10 Atherosclerotic heart disease of native coronary artery without angina pectoris; Z87.891 Personal history of nicotine dependence
CPT/HCPCS: 36415; 36430; 86900; 86901; J7050; P9035

== ENCOUNTER 2023-09-17 01:59 | Day surgery (SDC) | payer MEDICARE ==
[2023-09-17 13:48] VITALS: BP 104/37
[2023-09-17 14:07] VITALS: BP 117/64
[2023-09-17 15:15] VITALS: BP 133/93
== END 2023-09-17 15:17 | disposition home or self-care (01) ==
LOC: ATC 01:59
DX: D69.3 Immune thrombocytopenic purpura (principal); D61.818 Other pancytopenia; E78.5 Hyperlipidemia, unspecified; F32.9 Major depressive disorder, single episode, unspecified; I10 Essential (primary) hypertension; I25.10 Atherosclerotic heart disease of native coronary artery without angina pectoris; I25.2 Old myocardial infarction; I73.9 Peripheral vascular disease, unspecified; Z87.891 Personal history of nicotine dependence
CPT/HCPCS: 36415; 36430; 86900; 86901; J7050; P9035

== ENCOUNTER → 2023-10-09 | Outpatient (CLI) | payer OTHER ==
[2023-10-09 13:00] LABS: Hematocrit 36.1 % (37.0-53.0); Mean Corpuscular HGB 25.1 pg (26.0-34.0); Mean Corpuscular HGB Conc 30.5 g/dL (31.5-36.5); Mean Corpuscular Volume 82 fL (80-100); RDW Coefficient Variation 21.9 % (11.7-14.2); Red Blood Cell Count 4.38 M/mm3 (4.30-5.90); White Blood Cell Count 2.98 K/mm3 (4.00-11.30)
[2023-10-09 13:03] LABS: Platelet Count 4 K/mm3 (150-400)
[2023-10-09 13:24] LABS: BAND PERCENT MAN 3 % (0-8); BASOPHILS ABSOLUTE MAN 0.02 K/mm3 (0.00-0.23); BASOPHILS PERCENT MAN 1 % (0-2); EOSINOPHILS ABSOLUTE MAN 0.14 K/mm3 (0.00-0.68); EOSINOPHILS PERCENT MAN 5 % (0-6); LYMPHOCYTES ABSOLUTE MAN 0.83 K/mm3 (0.84-5.20); LYMPHOCYTES PERCENT MAN 28 % (21-46); MONOCYTES ABSOLUTE MAN 1.43 K/mm3 (0.16-1.47); MONOCYTES PERCENT MAN 48 % (4-13); MYELOCYTE ABSOLUTE MAN 0.02 K/mm3 (0.00-0.00); MYELOCYTE PERCENT MAN 1 % (0-0); SEG NEUTROPHILS PERCENT MAN 14 % (41-73); TOTAL CELLS COUNTED 100
== END ==
LOC: LAB SHORT 12:10 → LAB 12:10
PROVIDERS: Internal Medicine Hematology & Oncology
DX: D69.3 Immune thrombocytopenic purpura (principal); D61.818 Other pancytopenia
CPT/HCPCS: 85025

== ENCOUNTER → 2023-10-13 | Outpatient (CLI) | payer OTHER ==
[2023-10-13 12:26] LABS: Hematocrit 33.3 % (37.0-53.0); Hemoglobin 9.9 g/dL (13.5-17.5); Mean Corpuscular HGB 25.1 pg (26.0-34.0); Mean Corpuscular HGB Conc 29.7 g/dL (31.5-36.5); Mean Corpuscular Volume 85 fL (80-100); Platelet Count 52 K/mm3 (150-400); RDW Coefficient Variation 21.2 % (11.7-14.2); RDW Standard Deviation 65.6 fL (35.1-46.3); Red Blood Cell Count 3.94 M/mm3 (4.30-5.90); White Blood Cell Count 2.81 K/mm3 (4.00-11.30)
[2023-10-13 13:15] LABS: BASOPHILS ABSOLUTE MAN 0.02 K/mm3 (0.00-0.23); BASOPHILS PERCENT MAN 1 % (0-2); EOSINOPHILS ABSOLUTE MAN 0.05 K/mm3 (0.00-0.68); EOSINOPHILS PERCENT MAN 2 % (0-6); LYMPHOCYTES ABSOLUTE MAN 0.89 K/mm3 (0.84-5.20); LYMPHOCYTES PERCENT MAN 32 % (21-46); MONOCYTES ABSOLUTE MAN 0.56 K/mm3 (0.16-1.47); MONOCYTES PERCENT MAN 20 % (4-13); MYELOCYTE ABSOLUTE MAN 0.02 K/mm3 (0.00-0.00); MYELOCYTE PERCENT MAN 1 % (0-0); NEUTROPHILS ABSOLUTE MAN 1.23 K/mm3 (1.96-9.15); SEG NEUTROPHILS PERCENT MAN 44 % (41-73); TOTAL CELLS COUNTED 100
== END | disposition home or self-care (01) ==
LOC: LAB 10:14 → LAB SHORT 10:14
PROVIDERS: Internal Medicine Hematology & Oncology
DX: D69.3 Immune thrombocytopenic purpura (principal); D61.818 Other pancytopenia
CPT/HCPCS: 85025

== ENCOUNTER 2024-10-01 09:05 | Day surgery (SDC) | payer OTHER ==
[~2024-10-01] VITALS: Ht 182.9 cm; Wt 77.5 kg
[~2024-10-01 09:05] MED LIST changes: +ASPIR 8181 M1 PO; +BREO ELLIPTA 11 EAC1 INH; +Crestor40 MG PO; +Lactated Ringer's 1,000 ML IV SCH
[2024-10-01 10:08] VITALS: BP 124/67
--- NOTE | 2024-10-01 10:29 | NUR ---
Ambulatory in Day SurgeryPre-Op teaching done. Pt verbalizes understanding. History, Chart, Medications and Allergies reviewed before start of procedure.Patient confirms NPO status and agrees with scheduled surgery. Patient States Post-Procedure ride home has been arranged.
[2024-10-01] MEDS ORDERED: propofoL 60 ML IV ONE (11:03)
--- NOTE | 2024-10-01 11:33 | NUR ---
10/01/24 1133 Moira Manzanares CASE WITH DR. SHELLEY; SEE ANESTHESIA RECORDS.
[2024-10-01 11:58] VITALS: BP 114/59
--- NOTE | 2024-10-01 12:44 | NUR ---
Discharge instructions reviewed with patient. Patient verbalizes understanding. Copy given to patient to take home. BELONGINGS RETURNED TO PT. Discharged via wheelchair to private car for ride home WITH FRIEND NAJMA. Ambulatory in Day Surgery WITH STEADY GAIT.
== END 2024-10-01 12:45 | disposition home or self-care (01) ==
LOC: ORSCMMR 09:05 → ORD 10:30 → ORSCMMR 12:45
PROVIDERS: Surgery
PROC: 0DBH8ZX Excision of Cecum, Via Natural or Artificial Opening Endoscopic, Diagnostic (ICD-10-PCS; principal; 2024-10-01 10:30)
PROC: 0DBN8ZX Excision of Sigmoid Colon, Via Natural or Artificial Opening Endoscopic, Diagnostic (ICD-10-PCS; principal; 2024-10-01 10:30)
DX: Z12.11 Encounter for screening for malignant neoplasm of colon (principal); R19.5 Other fecal abnormalities; D12.0 Benign neoplasm of cecum; K63.5 Polyp of colon; I25.2 Old myocardial infarction; I10 Essential (primary) hypertension; I48.91 Unspecified atrial fibrillation; I25.10 Atherosclerotic heart disease of native coronary artery without angina pectoris; Z79.899 Other long term (current) drug therapy; Z79.82 Long term (current) use of aspirin
CPT/HCPCS: 88305; J2704; J7120

== ENCOUNTER → 2024-11-16 | Outpatient (CLI) | payer OTHER ==
[~2024-11-16] MED LIST changes: +Aspir 8181 MG PO; +CEFD300 PO; +COLACE100 MG PO; -Lactated Ringer's 1,000 ML IV SCH; +PROAIR RESPICL90 MCG; +ROSUVASTATIN CA40 MG PO; +SPIRIVA RESPIMAT4 G3; +TRELEGY ELLIPT1 EACH
[2024-11-16 17:45] LABS: BASOPHILS ABSOLUTE AUTO 0.04 K/mm3 (0.00-0.23); BASOPHILS PERCENT AUTO 2 % (0-2); EOSINOPHILS ABSOLUTE AUTO 0.13 K/mm3 (0.00-0.68); EOSINOPHILS PERCENT AUTO 6 % (0-6); Hematocrit 34.8 % (37.0-53.0); Hemoglobin 11.2 g/dL (13.5-17.5); IMMATURE GRAN ABSOLUTE AUTO 0.01 K/mm3 (0.00-0.10); IMMATURE GRAN PERCENT AUTO 0 % (0-1); LYMPHOCYTES ABSOLUTE AUTO 0.74 K/mm3 (0.84-5.20); LYMPHOCYTES PERCENT AUTO 33 % (21-46); MONOCYTES ABSOLUTE AUTO 0.63 K/mm3 (0.16-1.47); MONOCYTES PERCENT AUTO 28 % (4-13); Mean Corpuscular HGB 29.2 pg (26.0-34.0); Mean Corpuscular HGB Conc 32.2 g/dL (31.5-36.5); Mean Corpuscular Volume 91 fL (80-100); Mean Platelet Volume 12.4 fL (9.1-12.4); NEUTROPHILS ABSOLUTE AUTO 0.69 K/mm3 (1.96-9.15); NEUTROPHILS PERCENT AUTO 31 % (41-73); Platelet Count 297 K/mm3 (150-400); RDW Coefficient Variation 15.7 % (11.7-14.2); RDW Standard Deviation 50.6 fL (35.1-46.3); Red Blood Cell Count 3.84 M/mm3 (4.30-5.90); White Blood Cell Count 2.24 K/mm3 (4.00-11.30)
[2024-11-16 18:02] LABS: Albumin, Blood 3.4 g/dL (3.4-5.0); Albumin/Globulin Ratio 0.8 (0.8-1.8); Bilirubin, Total 0.5 mg/dL (0.1-1.0); Calcium, Blood 9.2 mg/dL (8.5-10.1); Creatinine, Blood 0.79 mg/dL (0.60-1.20); Potassium, Blood 4.4 mmol/L (3.5-5.5); Total Protein, Blood 7.4 g/dL (6.4-8.2)
[2024-11-16 19:25] LABS: Adenovirus Not Detected (NOT DETECT); Bordetella pertussis Not Detected (NOT DETECT); Chlamydophila pneumoniae Not Detected (NOT DETECT); Coronavirus 229E Not Detected (NOT DETECT); Coronavirus HKU1 Not Detected (NOT DETECT); Coronavirus NL63 Not Detected (NOT DETECT); Coronavirus OC43 Not Detected (NOT DETECT); Human Metapneumovirus Not Detected (NOT DETECT); Human Rhinovirus/Enterovirus Not Detected (NOT DETECT); Influenza A/2009-H1 Not Detected (NOT DETECT); Influenza A/H1 Not Detected (NOT DETECT); Influenza A/H3 Not Detected (NOT DETECT); Influenza B Not Detected (NOT DETECT); Mycoplasma pneumoniae Not Detected (NOT DETECT); Parainfluenza Virus 1 Not Detected (NOT DETECT); Parainfluenza Virus 2 Not Detected (NOT DETECT); Parainfluenza Virus 3 Not Detected (NOT DETECT); Parainfluenza Virus 4 Not Detected (NOT DETECT); Respiratory Syncytial Virus Not Detected (NOT DETECT); SARS-Cov-2 (COVID-19), BioFire Not Detected (NOT DETECT)
== END ==
LOC: LAB 13:25 → LAB SHORT 13:25
PROVIDERS: Student in an Organized Health Care Education/Training Program
DX: R42 Dizziness and giddiness (principal)
CPT/HCPCS: 0202U; 80053; 85025

== ENCOUNTER 2024-11-22 13:23 | Emergency (ER) | payer OTHER ==
[~2024-11-22] VITALS: Ht 182.9 cm; Wt 68.0 kg
[~2024-11-22 13:23] MED LIST changes: -Aspir 8181 MG PO; -CEFD300 PO; -COLACE100 MG PO; -PROAIR RESPICL90 MCG; -ROSUVASTATIN CA40 MG PO; -SPIRIVA RESPIMAT4 G3; -TRELEGY ELLIPT1 EACH
[2024-11-22 17:14] LABS: BASOPHILS ABSOLUTE AUTO 0.03 K/mm3 (0.00-0.23); BASOPHILS PERCENT AUTO 1 % (0-2); EOSINOPHILS ABSOLUTE AUTO 0.07 K/mm3 (0.00-0.68); EOSINOPHILS PERCENT AUTO 3 % (0-6); Hematocrit 32.2 % (37.0-53.0); Hemoglobin 10.9 g/dL (13.5-17.5); IMMATURE GRAN ABSOLUTE AUTO 0.01 K/mm3 (0.00-0.10); IMMATURE GRAN PERCENT AUTO 0 % (0-1); LYMPHOCYTES ABSOLUTE AUTO 0.35 K/mm3 (0.84-5.20); LYMPHOCYTES PERCENT AUTO 15 % (21-46); MONOCYTES PERCENT AUTO 66 % (4-13); Mean Corpuscular HGB 29.2 pg (26.0-34.0); Mean Corpuscular HGB Conc 33.9 g/dL (31.5-36.5); Mean Corpuscular Volume 86 fL (80-100); Mean Platelet Volume 12.2 fL (9.1-12.4); NEUTROPHILS ABSOLUTE AUTO 0.33 K/mm3 (1.96-9.15); NEUTROPHILS PERCENT AUTO 14 % (41-73); Platelet Count 93 K/mm3 (150-400); RDW Coefficient Variation 15.2 % (11.7-14.2); RDW Standard Deviation 48.4 fL (35.1-46.3); Red Blood Cell Count 3.73 M/mm3 (4.30-5.90); White Blood Cell Count 2.29 K/mm3 (4.00-11.30)
[2024-11-22] MEDS ORDERED: ROSUVASTATIN CA40 MG PO (17:39)
[2024-11-22] MEDS ORDERED: COLACE100 MG PO (17:40)
[2024-11-22] MEDS ORDERED: Aspir 8181 MG PO (17:42)
[2024-11-22] MEDS ORDERED: TRELEGY ELLIPT1 EACH (17:42)
[2024-11-22] MEDS ORDERED: PROAIR RESPICL90 MCG (17:42)
[2024-11-22] MEDS ORDERED: SPIRIVA RESPIMAT4 G3 (17:42)
[2024-11-22 17:45] LABS: Albumin, Blood 3.1 g/dL (3.4-5.0); Albumin/Globulin Ratio 0.8 (0.8-1.8); Bilirubin, Total 0.6 mg/dL (0.1-1.0); Bun/Creatinine Ratio 20.4 (12.0-20.0); Calcium, Blood 8.6 mg/dL (8.5-10.1); Creatinine, Blood 0.93 mg/dL (0.60-1.20); Globulin, Blood 4.1 g/dL (2.2-4.0); Potassium, Blood 3.3 mmol/L (3.5-5.5); Total Protein, Blood 7.2 g/dL (6.4-8.2)
[2024-11-22 18:32] LABS: Source, Urine Clean Catch
[2024-11-22 18:56] LABS: Appearance, Urine Clear (Clear); Bilirubin, Urine Neg (Neg); Blood, Urine Neg (Neg); Color, Urine Yellow (P-Yellow); Glucose Qualitative, Urine Neg (Neg); Ketones, Urine Neg (Neg); Leukocyte Esterase, Urine 1+ (Neg); Nitrite, Urine Neg (Neg); Protein, Urine 2+ (Neg); Urobilinogen, Urine 1+ (Normal)
[2024-11-22 19:07] VITALS: BP 110/70
[2024-11-22 19:11] LABS: Bacteria Few /hpf; Mucus Light (0-Heavy); Red Blood Cells, Urine 0-2 /hpf (0-2); Squamous Epithelial Cells Few /hpf (Few)
[2024-11-22] MEDS ORDERED: CEFD300 PO (20:00)
[2024-11-22] MEDS ORDERED: Cefdinir 300 MG Cap PO ONE (20:00)
== END 2024-11-22 20:22 | disposition home or self-care (01) ==
LOC: ER 13:23
PROVIDERS: Emergency Medicine; Physician Assistant
DX: N30.00 Acute cystitis without hematuria (principal); I11.0 Hypertensive heart disease with heart failure; I50.30 Unspecified diastolic (congestive) heart failure; I25.10 Atherosclerotic heart disease of native coronary artery without angina pectoris; J44.9 Chronic obstructive pulmonary disease, unspecified; E78.5 Hyperlipidemia, unspecified; E03.9 Hypothyroidism, unspecified; I48.0 Paroxysmal atrial fibrillation; Z99.81 Dependence on supplemental oxygen; Z79.82 Long term (current) use of aspirin; Z79.899 Other long term (current) drug therapy
CPT/HCPCS: 74177; 80053; 81001; 83690; 85025; 87086; 99284-25; A9270; Q9967

== ENCOUNTER 2024-11-24 11:20 | Emergency (ER) | payer OTHER ==
[~2024-11-24] VITALS: Ht 182.9 cm; Wt 71.2 kg
[~2024-11-24 11:20] MED LIST changes: +Aspir 8181 MG PO; +CEFD300 PO; +COLACE100 MG PO; +PROAIR RESPICL90 MCG; +ROSUVASTATIN CA40 MG PO; +SPIRIVA RESPIMAT4 G3; +TRELEGY ELLIPT1 EACH
[2024-11-24 11:52] VITALS: BP 107/67
[2024-11-24 12:13] LABS: BASOPHILS ABSOLUTE AUTO 0.04 K/mm3 (0.00-0.23); BASOPHILS PERCENT AUTO 2 % (0-2); EOSINOPHILS PERCENT AUTO 8 % (0-6); Hematocrit 34.9 % (37.0-53.0); Hemoglobin 11.8 g/dL (13.5-17.5); IMMATURE GRAN ABSOLUTE AUTO 0.07 K/mm3 (0.00-0.10); IMMATURE GRAN PERCENT AUTO 3 % (0-1); LYMPHOCYTES ABSOLUTE AUTO 0.79 K/mm3 (0.84-5.20); LYMPHOCYTES PERCENT AUTO 30 % (21-46); MONOCYTES ABSOLUTE AUTO 1.33 K/mm3 (0.16-1.47); MONOCYTES PERCENT AUTO 50 % (4-13); Mean Corpuscular HGB 29.5 pg (26.0-34.0); Mean Corpuscular HGB Conc 33.8 g/dL (31.5-36.5); Mean Corpuscular Volume 87 fL (80-100); Mean Platelet Volume 12.3 fL (9.1-12.4); NEUTROPHILS ABSOLUTE AUTO 0.22 K/mm3 (1.96-9.15); NEUTROPHILS PERCENT AUTO 8 % (41-73); Platelet Count 196 K/mm3 (150-400); RDW Standard Deviation 48.6 fL (35.1-46.3); White Blood Cell Count 2.65 K/mm3 (4.00-11.30)
[2024-11-24 12:35] LABS: Albumin/Globulin Ratio 0.7 (0.8-1.8); Bilirubin, Total 0.6 mg/dL (0.1-1.0); Bun/Creatinine Ratio 15.1 (12.0-20.0); Calcium, Blood 9.2 mg/dL (8.5-10.1); Creatinine, Blood 1.19 mg/dL (0.60-1.20); Globulin, Blood 4.4 g/dL (2.2-4.0); Potassium, Blood 3.5 mmol/L (3.5-5.5); Total Protein, Blood 7.4 g/dL (6.4-8.2)
== END 2024-11-24 13:02 | disposition left against medical advice (07) ==
LOC: ER 11:20
PROVIDERS: Emergency Medicine
DX: R10.84 Generalized abdominal pain (principal); Z53.29 Procedure and treatment not carried out because of patient's decision for other reasons
CPT/HCPCS: 74018; 80053; 83690; 85025; 99282-25

== ENCOUNTER 2025-03-08 05:23 | Inpatient (IN) | payer OTHER ==
[~2025-03-08] VITALS: Ht 182.9 cm; Wt 70.3 kg
[~2025-03-08 05:23] MED LIST changes: -PROAIR RESPICL90 MCG; +PROAIR RESPICL90 MCG INH; -SPIRIVA RESPIMAT4 G3
[2025-03-08 05:50] LABS: BASOPHILS ABSOLUTE AUTO 0.03 K/mm3 (0.00-0.23); BASOPHILS PERCENT AUTO 2 % (0-2); EOSINOPHILS ABSOLUTE AUTO 0.06 K/mm3 (0.00-0.68); EOSINOPHILS PERCENT AUTO 4 % (0-6); Hematocrit 30.1 % (37.0-53.0); Hemoglobin 9.3 g/dL (13.5-17.5); IMMATURE GRAN ABSOLUTE AUTO 0.01 K/mm3 (0.00-0.10); IMMATURE GRAN PERCENT AUTO 1 % (0-1); LYMPHOCYTES ABSOLUTE AUTO 0.32 K/mm3 (0.84-5.20); LYMPHOCYTES PERCENT AUTO 19 % (21-46); MONOCYTES ABSOLUTE AUTO 0.64 K/mm3 (0.16-1.47); MONOCYTES PERCENT AUTO 37 % (4-13); Mean Corpuscular HGB Conc 30.9 g/dL (31.5-36.5); Mean Corpuscular Volume 87 fL (80-100); NEUTROPHILS ABSOLUTE AUTO 0.65 K/mm3 (1.96-9.15); NEUTROPHILS PERCENT AUTO 38 % (41-73); NRBC ABSOLUTE 0.00 K/mm3 (0.00-0.02); NRBC Auto 0.0 /100 WBC (0.0-0.2); Platelet Count 127 K/mm3 (150-400); RDW Coefficient Variation 17.6 % (11.7-14.2); RDW Standard Deviation 55.5 fL (35.1-46.3)
[2025-03-08 06:12] LABS: Alanine Aminotransfer (ALT/SGP 27.0 U/L (12-78); Albumin, Blood 2.7 g/dL (3.4-5.0); Albumin/Globulin Ratio 0.7 (0.8-1.8); Anion Gap 9.0 mmol/L (3-11); Aspartate Aminotrans (AST/SGOT 24.0 U/L (12-37); Bilirubin, Total 0.4 mg/dL (0.1-1.0); Blood Urea Nitrogen 13.0 mg/dL (8-24); CO2, Blood 24.0 mmol/L (21-32); Calcium, Blood 8.1 mg/dL (8.5-10.1); Chloride, Blood 109.0 mmol/L (98-108); Creatinine, Blood 0.85 mg/dL (0.60-1.20); Globulin, Blood 4.1 g/dL (2.2-4.0); Glucose, Blood 106.0 mg/dL (70-99); Potassium, Blood 3.6 mmol/L (3.5-5.5); Sodium, Blood 138.0 mmol/L (136-145); Total Protein, Blood 6.8 g/dL (6.4-8.2)
[2025-03-08] MEDS ORDERED: NS 1,000 ML IV SCH ×4 (06:15→17:00)
[2025-03-08] MEDS ORDERED: Diltiazem HCl 5 MG / ML 5ML Vial IV ONE (06:20)
[2025-03-08 06:23] LABS: Magnesium, Blood 1.8 mg/dL (1.6-2.4)
[2025-03-08 06:59] LABS: Source, Urine Clean Catch
[2025-03-08 07:06] LABS: Bilirubin, Urine Neg (Neg); Color, Urine Yellow (P-Yellow); Glucose Qualitative, Urine Neg (Neg); Ketones, Urine Neg (Neg); Leukocyte Esterase, Urine Neg (Neg); Protein, Urine Neg (Neg); Specific Gravity, Urine 1.015 (1.003-1.022); Urobilinogen, Urine NORM (Normal)
[2025-03-08 07:23] LABS: White Blood Cells, Urine 0-2 /hpf (0-5)
[2025-03-08] MEDS ORDERED: CefTRIAXone Sodium 1,000 MG in NS 50 ML IV ONE (09:10)
[2025-03-08] MEDS ORDERED: Ondansetron HCl 2 MG / ML 2ML Vial IV PRN (10:30)
[2025-03-08] MEDS ORDERED: Albuterol 2.5 MG/3 ML VIAL INH PRN (10:30)
[2025-03-08] MEDS ORDERED: Ipratropium/Albuterol SulF 2.5-0.5MG/3 ML Amp INH SCH (10:30)
[2025-03-08 15:39] VITALS: BP 105/58
--- NOTE | 2025-03-08 15:55 | NUR ---
REPORT RECEIVED FROM SUPERVISOR TELEVISION CHASSIS REPAIR. PATIENT TO ROOM VIA WHEELCHAIR AT 1535. PATIENT WEARING STREET CLOTHES AND NOT WANTING TO WEAR A GOWN. MD AT BEDSIDE EVALUATING PATIENT
[2025-03-08] MEDS ORDERED: FINA5 PO (16:17)
[2025-03-08] MEDS ORDERED: FentaNYL Citrate 50 MCG/ML 2 ML Injection IV PRN (16:40)
[2025-03-08] MEDS ORDERED: Tiotropium Bromide 2.5 MCG/ACT MIST INHAL (10 ACT/4 GM) INH SCH (16:45)
[2025-03-08] MEDS ORDERED: Pantoprazole Sodium 40 MG Injection IV SCH (17:00)
[2025-03-08 19:34] VITALS: BP 105/62
[2025-03-08] MEDS ORDERED: Lactobacil 2-S.Thermo-Bifido 1 1 Cap PO SCH (21:00)
[2025-03-09] VITALS (10 sets, daily range): BP systolic 96–130; BP diastolic 54–113
[2025-03-09 05:46] LABS: BASOPHILS ABSOLUTE AUTO 0.01 K/mm3 (0.00-0.23); BASOPHILS PERCENT AUTO 1 % (0-2); EOSINOPHILS ABSOLUTE AUTO 0.07 K/mm3 (0.00-0.68); EOSINOPHILS PERCENT AUTO 7 % (0-6); Hematocrit 24.6 % (37.0-53.0); Hemoglobin 7.9 g/dL (13.5-17.5); IMMATURE GRAN ABSOLUTE AUTO 0.01 K/mm3 (0.00-0.10); IMMATURE GRAN PERCENT AUTO 1 % (0-1); LYMPHOCYTES ABSOLUTE AUTO 0.36 K/mm3 (0.84-5.20); LYMPHOCYTES PERCENT AUTO 33 % (21-46); MONOCYTES ABSOLUTE AUTO 0.49 K/mm3 (0.16-1.47); MONOCYTES PERCENT AUTO 45 % (4-13); Mean Corpuscular HGB Conc 32.1 g/dL (31.5-36.5); Mean Corpuscular Volume 86 fL (80-100); NEUTROPHILS ABSOLUTE AUTO 0.14 K/mm3 (1.96-9.15); NEUTROPHILS PERCENT AUTO 13 % (41-73); NRBC ABSOLUTE 0.00 K/mm3 (0.00-0.02); NRBC Auto 0.0 /100 WBC (0.0-0.2); Platelet Count 132 K/mm3 (150-400); RDW Coefficient Variation 17.6 % (11.7-14.2); RDW Standard Deviation 55.2 fL (35.1-46.3)
[2025-03-09 06:10] LABS: BASOPHILS ABSOLUTE MAN 0.04 K/mm3 (0.00-0.23); BASOPHILS PERCENT MAN 4 % (0-2); EOSINOPHILS ABSOLUTE MAN 0.08 K/mm3 (0.00-0.68); EOSINOPHILS PERCENT MAN 8 % (0-6); LYMPHOCYTES ABSOLUTE MAN 0.32 K/mm3 (0.84-5.20); LYMPHOCYTES PERCENT MAN 30 % (21-46); MONOCYTES ABSOLUTE MAN 0.43 K/mm3 (0.16-1.47); MONOCYTES PERCENT MAN 40 % (4-13); NEUTROPHILS ABSOLUTE MAN 0.19 K/mm3 (1.96-9.15); SEG NEUTROPHILS PERCENT MAN 18 % (41-73)
--- NOTE | 2025-03-09 06:14 | NUR ---
SHIFT SUMMARY PT A&Ox4, VSS ON RA. NO ACUTE CHANGES OVERNIGHT. PT DENIES PAIN, SOB, CHEST PAIN, NAUSEA. CALL LIGHT IN REACH, NO FURTHER NEEDS AT THIS TIME. NEUTROPENIC PRECAUTIONS IN PLACE.
[2025-03-09 06:42] LABS: Anion Gap 7.0 mmol/L (3-11); Blood Urea Nitrogen 11.0 mg/dL (8-24); CO2, Blood 25.0 mmol/L (21-32); Calcium, Blood 8.1 mg/dL (8.5-10.1); Chloride, Blood 109.0 mmol/L (98-108); Creatinine, Blood 0.8 mg/dL (0.60-1.20); Glucose, Blood 99.0 mg/dL (70-99); Potassium, Blood 3.7 mmol/L (3.5-5.5); Sodium, Blood 137.0 mmol/L (136-145)
[2025-03-09] MEDS ORDERED: CefTRIAXone Sodium 1,000 MG in NS 100 ML IV SCH (09:00)
[2025-03-09] MEDS ORDERED: FILGRASTIM-AYOW 480 MCG/0.8 ML 0.8MLSYR SC SCH (13:00)
--- NOTE | 2025-03-09 18:14 | NUR ---
PATIENT COOPERATIVE WITH CARE TODAY. CALL LIGHT WITHIN REACH. PATIENT HAS NO CONCERNS OR QUESTIONS FOR THIS NURSE.
[2025-03-09] MEDS ORDERED: Metoprolol Tartrate 1 MG/ML 5 ML VIAL IV ONE (19:55)
[2025-03-09] MEDS ORDERED: Metoprolol Tartrate 1 MG/ML 5 ML VIAL IV PRN (22:45)
[2025-03-10] MEDS ORDERED: Metoprolol Tartrate 1 MG/ML 5 ML VIAL IV ONE (01:05)
[2025-03-10 01:26] LABS: Hematocrit 27.2 % (37.0-53.0); Hemoglobin 8.8 g/dL (13.5-17.5); Mean Corpuscular HGB Conc 32.4 g/dL (31.5-36.5); Mean Corpuscular Volume 83 fL (80-100); NRBC ABSOLUTE 0.00 K/mm3 (0.00-0.02); NRBC Auto 0.0 /100 WBC (0.0-0.2); Platelet Count 168 K/mm3 (150-400); RDW Coefficient Variation 17.7 % (11.7-14.2); RDW Standard Deviation 54.2 fL (35.1-46.3)
[2025-03-10 01:32] VITALS: BP 102/66
[2025-03-10 01:44] LABS: Alanine Aminotransfer (ALT/SGP 24.0 U/L (12-78); Albumin, Blood 2.5 g/dL (3.4-5.0); Albumin/Globulin Ratio 0.6 (0.8-1.8); Anion Gap 9.0 mmol/L (3-11); Aspartate Aminotrans (AST/SGOT 25.0 U/L (12-37); Bilirubin, Total 0.4 mg/dL (0.1-1.0); Blood Urea Nitrogen 13.0 mg/dL (8-24); CO2, Blood 23.0 mmol/L (21-32); Calcium, Blood 8.2 mg/dL (8.5-10.1); Chloride, Blood 108.0 mmol/L (98-108); Creatinine, Blood 0.73 mg/dL (0.60-1.20); Globulin, Blood 4.0 g/dL (2.2-4.0); Glucose, Blood 99.0 mg/dL (70-99); Magnesium, Blood 1.7 mg/dL (1.6-2.4); Potassium, Blood 3.5 mmol/L (3.5-5.5); Sodium, Blood 136.0 mmol/L (136-145); Total Protein, Blood 6.5 g/dL (6.4-8.2)
[2025-03-10 01:51] LABS: BAND PERCENT MAN 24 % (0-8); BASOPHILS ABSOLUTE MAN 0.00 K/mm3 (0.00-0.23); BASOPHILS PERCENT MAN 0 % (0-2); EOSINOPHILS ABSOLUTE MAN 0.00 K/mm3 (0.00-0.68); EOSINOPHILS PERCENT MAN 0 % (0-6); LYMPHOCYTES ABSOLUTE MAN 0.53 K/mm3 (0.84-5.20); LYMPHOCYTES PERCENT MAN 18 % (21-46); MONOCYTES ABSOLUTE MAN 1.01 K/mm3 (0.16-1.47); MONOCYTES PERCENT MAN 34 % (4-13); NEUTROPHILS ABSOLUTE MAN 1.43 K/mm3 (1.96-9.15); SEG NEUTROPHILS PERCENT MAN 24 % (41-73)
[2025-03-10 03:07] VITALS: BP 95/68
--- NOTE | 2025-03-10 04:17 | NUR ---
SHIFT SUMMARY 80 YR M ADMITTED ON 03/08/25. FULL CODE. PER ELECTRONIC INDUCTION HARDENER, PT CONVERTED TO AFLUTTER @ 1853. FROM THAT POINT ON, PT HR FLUCTUATED BACK AND FORTH FROM LOW 100'S TO HIGH 200, WELL CONVERTING BACK TO SR AND THEN BACK TO AFIB SEVERAL TIMES. HOSPITALIST NOTIFIED THREE TIMES AND THREE DOSES OF 5 MG LOPRESSOR GIVEN. EACH OF THE FIRST TWO DOSES WORKED FOR A SHORT PERIOD OF TIME THEN HR WOULD JUMP BACK UP AGAIN. THIRD DOSE WAS GIVEN @ 0015 AND OF 429 THIS A.M. HIS HR HAS REMAINED WNL. PT WAS ASYMPTOMATIC THROUGHOUT THE NIGHT. THERE IS AN ORDER FOR PRN LOPRESSOR Q4 IN THE EMAR.
[2025-03-10 05:25] VITALS: BP 116/64
[2025-03-10 07:30] VITALS: BP 111/79
--- NOTE | 2025-03-10 07:52 | NUR ---
CALL FROM TELEMETRY STATING PATIENTS HR COMING DOWN WAS 105. MORNING MEDS GIVEN TO HELP WITH HR AND PATIENT STARTING GETTING OUT OF BED. THIS NURSE ASKED PATIENT HOW HE FELT AND HE STATED "LIGHT HEADED". THIS NURSE ASKED PATIENT TO WAIT A SECOND AND HE STATED "I AM FINE" AND AMBULATED TO BATHROOM. UPON RETURN TO BED TELEMETRY CALLED STATING PATIENT WAS 125'S. FACE TO FACE UPDATE DONE WITH DR. ANMOL STEPHENSON WILL REVIEW
[2025-03-10] MEDS ORDERED: NS 500 ML IV ONE (09:40)
--- NOTE | 2025-03-10 09:40 | NUR ---
MD AT BEDSIDE, 500 CC BOLUS ORDERED AND PROVIDER WILL FOLLOW UP LATER TODAY.
--- NOTE | 2025-03-10 09:49 | NUR ---
LATE ENTRY- APPROX 0825 PT C/O DIZZINESS WHILE LYING IN BED AND NAUSEA. PT MEDICATED PER EMAR FOR NAUSEA. PER HONING JOB SETTER PT AFIB 101. VSS STABLE. DR. SALDANA NOTIFIED. WILL SEE PT AT BEDSIDE.
--- NOTE | 2025-03-10 10:33 | NUR ---
RECEIVED CALL FROM DIRECTOR MARKETING COMMUNICATIONS STATING PATIENT HAS BEEN IN A FIB SINCE 644 THIS AM. HEART RATE DOES RISE TO 130-140'S BUT CURRENTLY AT 102.
[2025-03-10 11:48] VITALS: BP 119/77
--- NOTE | 2025-03-10 15:11 | NUR ---
PATIENT USED CALL LIGHT ABOUT 1430 AND STATED IT WAS GETTING LATE AND HE NEEDS TO TAKE CARE OF HIS DOGS "BEFORE THEY EAT EACHOTHER" LET PATIENT KNOW RN WOULD CALL MD FOR UPDATE. CALL PLACED TO MD AND REVIEWED LABS. WAITING FOR DISCHARGE ORDERS
[2025-03-10] MEDS ORDERED: Tessalon200 MG PO (15:54)
[2025-03-10] MEDS ORDERED: DILT120 PO (15:55)
[2025-03-10] MEDS ORDERED: VISBIOME 112.51 EACH PO (15:57)
[2025-03-10] MEDS ORDERED: LEVO750 PO (15:57)
--- NOTE | 2025-03-10 18:46 | NUR ---
PATIENT DISCHARGED HOME WITH INSTRUCTIONS PROVIDED ON MEDICATION CHANGES AND MEDICAL APPOINTMENTS. PATIENT WHEELED DOWN TO WAIT FOR CAB RIDE HOME. ALL QUESTIONS ANSWERED
== END 2025-03-10 17:35 | disposition home or self-care (01) | DRG 871 ==
LOC: ER 05:23 → MEDS 10:23
PROVIDERS: Emergency Medicine; Internal Medicine; Student in an Organized Health Care Education/Training Program; ADMIT Internal Medicine
DX: A41.9 Sepsis, unspecified organism (principal); J18.9 Pneumonia, unspecified organism; I50.32 Chronic diastolic (congestive) heart failure; D61.818 Other pancytopenia; J44.0 Chronic obstructive pulmonary disease with (acute) lower respiratory infection; D69.3 Immune thrombocytopenic purpura; I25.10 Atherosclerotic heart disease of native coronary artery without angina pectoris; N40.0 Benign prostatic hyperplasia without lower urinary tract symptoms; I11.0 Hypertensive heart disease with heart failure; E03.9 Hypothyroidism, unspecified; E78.5 Hyperlipidemia, unspecified; K21.9 Gastro-esophageal reflux disease without esophagitis; Z60.2 Problems related to living alone; I45.81 Long QT syndrome; F41.9 Anxiety disorder, unspecified; I48.0 Paroxysmal atrial fibrillation; F32.A Depression, unspecified; Z79.82 Long term (current) use of aspirin; Z79.51 Long term (current) use of inhaled steroids; Z79.899 Other long term (current) drug therapy; Z95.5 Presence of coronary angioplasty implant and graft; Z86.73 Personal history of transient ischemic attack (TIA), and cerebral infarction without residual deficits; Z87.19 Personal history of other diseases of the digestive system; I25.2 Old myocardial infarction; Z87.891 Personal history of nicotine dependence; Z98.890 Other specified postprocedural states; Z98.52 Vasectomy status
CPT/HCPCS: 36415; 51798; 71046; 74177; 80048; 80053; 81001; 83605; 83690; 83735; 84145; 84484; 85025; 93005; 93010; 94640; 94664; 94760; 97110; 97161; 99285-25; A9270; J0696; J2405; J2470; J7030; J7040; Q5125; Q9967

== ENCOUNTER 2025-03-17 05:35 | Inpatient (IN) | payer OTHER ==
[2025-03-17] VITALS (9 sets, daily range): BP systolic 116–132; BP diastolic 70–87
[~2025-03-17] VITALS: Ht 182.9 cm; Wt 69.7 kg
[~2025-03-17 05:35] MED LIST changes: +DILT120 PO; +FINA5 PO; +Tessalon200 MG PO
[2025-03-17 06:16] LABS: Hematocrit 26.8 % (37.0-53.0); Hemoglobin 8.6 g/dL (13.5-17.5); Mean Corpuscular HGB Conc 32.1 g/dL (31.5-36.5); Mean Corpuscular Volume 87 fL (80-100); NRBC ABSOLUTE 0.00 K/mm3 (0.00-0.02); NRBC Auto 0.0 /100 WBC (0.0-0.2); RDW Coefficient Variation 19.0 % (11.7-14.2); RDW Standard Deviation 58.2 fL (35.1-46.3)
[2025-03-17 06:25] LABS: Alanine Aminotransfer (ALT/SGP 39.0 U/L (12-78); Albumin, Blood 2.7 g/dL (3.4-5.0); Albumin/Globulin Ratio 0.7 (0.8-1.8); Anion Gap 9.0 mmol/L (3-11); Aspartate Aminotrans (AST/SGOT 36.0 U/L (12-37); Bilirubin, Total 0.6 mg/dL (0.1-1.0); Blood Urea Nitrogen 15.0 mg/dL (8-24); CO2, Blood 22.0 mmol/L (21-32); Calcium, Blood 8.5 mg/dL (8.5-10.1); Chloride, Blood 111.0 mmol/L (98-108); Creatinine, Blood 0.81 mg/dL (0.60-1.20); Globulin, Blood 3.8 g/dL (2.2-4.0); Glucose, Blood 124.0 mg/dL (70-99); Potassium, Blood 3.4 mmol/L (3.5-5.5); Sodium, Blood 139.0 mmol/L (136-145); Total Protein, Blood 6.5 g/dL (6.4-8.2)
[2025-03-17 06:27] LABS: Platelet Count 1 K/mm3 (150-400)
[2025-03-17 06:39] LABS: BAND PERCENT MAN 4 % (0-8); BASOPHILS ABSOLUTE MAN 0.12 K/mm3 (0.00-0.23); BASOPHILS PERCENT MAN 3 % (0-2); EOSINOPHILS ABSOLUTE MAN 0.17 K/mm3 (0.00-0.68); EOSINOPHILS PERCENT MAN 4 % (0-6); LYMPHOCYTES ABSOLUTE MAN 0.55 K/mm3 (0.84-5.20); LYMPHOCYTES PERCENT MAN 13 % (21-46); METAMYELOCYTE ABSOLUTE MAN 0.21 K/mm3 (0.00-0.00); METAMYELOCYTE PERCENT MAN 5 % (0-0); MONOCYTES ABSOLUTE MAN 0.38 K/mm3 (0.16-1.47); MONOCYTES PERCENT MAN 9 % (4-13); MYELOCYTE ABSOLUTE MAN 0.25 K/mm3 (0.00-0.00); MYELOCYTE PERCENT MAN 6 % (0-0); NEUTROPHILS ABSOLUTE MAN 2.55 K/mm3 (1.96-9.15); SEG NEUTROPHILS PERCENT MAN 56 % (41-73)
[2025-03-17 07:46] LABS: Fibrinogen 420.0 mg/dL (170-430); Prothrombin Time Results 12.5 Sec (9.7-11.5)
[2025-03-17] MEDS ORDERED: NS 1,000 ML IV ONE (10:02)
[2025-03-17] MEDS ORDERED: Furosemide 10 MG / ML 2ML Vial IV ONE ×2 (11:00→13:10)
[2025-03-17] MEDS ORDERED: IMMUN GLOB G(IGG)/PRO/IGA 0-50 100 ML IV SCH (11:45)
[2025-03-17] MEDS ORDERED: Tiotropium Bromide 2.5 MCG/ACT MIST INHAL (10 ACT/4 GM) INH SCH (11:55)
[2025-03-17] MEDS ORDERED: Albuterol HFA200 ACT/6.7 GM INH INH PRN (12:00)
[2025-03-17] MEDS ORDERED: NS 500 ML IV ONE (13:10)
[2025-03-17] MEDS ORDERED: NS 500 ML IV SCH (13:10)
--- NOTE | 2025-03-17 14:37 | NUR ---
Pt is stable after receiving the unit of PRBCs. His vital signs are stable, and he is still on 3 l/min of O2. States that he has had shortness of breath for months now, only able to walk 20 feet before he gets dyspnea. He is able to sit on the side of the bed to eat and drink, and has a good appetite. Per pharmacy, will start the IVIG 1 hour past transfusion completion time.
--- NOTE | 2025-03-17 15:07 | NUR ---
IVIG dosing verified with physical science technician Kimberley, 22 cc/hour to start while initial monitoring of adverse reaction in progress. Vital signs documented at this time.
[2025-03-17 15:34] LABS: Hematocrit 32.7 % (37.0-53.0); Hemoglobin 10.4 g/dL (13.5-17.5); Mean Corpuscular HGB Conc 31.8 g/dL (31.5-36.5); Mean Corpuscular Volume 86 fL (80-100); NRBC ABSOLUTE 0.02 K/mm3 (0.00-0.02); NRBC Auto 0.3 /100 WBC (0.0-0.2); RDW Coefficient Variation 18.9 % (11.7-14.2); RDW Standard Deviation 55.8 fL (35.1-46.3)
[2025-03-17 15:38] LABS: Platelet Count 7 K/mm3 (150-400)
--- NOTE | 2025-03-17 15:39 | NUR ---
critical lab value of platelets 7
--- NOTE | 2025-03-17 18:37 | NUR ---
Received call from Dr. Golden ; new order received for 1 u platelets to be transfused. Question from pharmacy regarding timing of transfusions in setting of ongoing IVIG infusions and stable pt without any evidence of life threatening bleeding. Attempted to call Dr. Golden to ask which transfusion he wanted prioritized, and Dr. Suazo is covering. So new order received from DR. Suazo to give the IVIG, and when all bottles are completed, to then give the 1 unit of platelets. Pt remains stable. While sleeping he is needing 5 l/min of O2, increased from 3 l/min needed since the ED.
[2025-03-17 22:16] LABS: Hematocrit 24.3 % (37.0-53.0); Hemoglobin 7.9 g/dL (13.5-17.5); Mean Corpuscular HGB Conc 32.5 g/dL (31.5-36.5); Mean Corpuscular Volume 84 fL (80-100); NRBC ABSOLUTE 0.00 K/mm3 (0.00-0.02); NRBC Auto 0.0 /100 WBC (0.0-0.2); RDW Coefficient Variation 18.8 % (11.7-14.2); RDW Standard Deviation 56.0 fL (35.1-46.3)
[2025-03-17 22:24] LABS: Platelet Count 3 K/mm3 (150-400)
--- NOTE | 2025-03-18 01:17 | NUR ---
PHYSICIAN COMMUNICATION CONTACTED ONLINE COMMUNICATIONS SPECIALIST RESIDENT TO NOTIFY HER THAT THE PATIENT IS HAVING INCREASED OXYGEN NEEDS, CURRENTLY ON 9 LITERS O2, AND CRACKLES CAN BE HEARD IN THE BASES OF THE LUNGS. ASKED HER IF SHE WOULD LIKE THE PATIENT TO RECEIVE ANOTHER DOSE OF LASIX HE HAS RECEIVED A LOT OF FLUID WITH THE IVIG. DR BAIN ORDERED A ONE TIME DOSE OF 20 MG IV LASIX.
[2025-03-18] MEDS ORDERED: Furosemide 10 MG / ML 2ML Vial IV ONE ×2 (01:20→12:00)
[2025-03-18 03:03] VITALS: BP 138/82
--- NOTE | 2025-03-18 05:31 | NUR ---
SHIFT SUMMARY PATIENT ALERT AND ORIENTED X4. MEDICATED PER EMAR FOR BACK PAIN. PATIENT IS TACHYPNIC AND SHORT OF BREATH ON EXERTION. CURRENTLY ON 8 LITERS O2 VIA NC. VITAL SIGNS STABLE. IVIG AND PLATELETS FINISHED INFUSING. WILL CONTINUE TO MONITOR. CALL LIGHT WITHIN REACH.
[2025-03-18 06:08] LABS: Hematocrit 26.6 % (37.0-53.0); Hemoglobin 8.8 g/dL (13.5-17.5); Mean Corpuscular HGB Conc 33.1 g/dL (31.5-36.5); Mean Corpuscular Volume 84 fL (80-100); NRBC ABSOLUTE 0.02 K/mm3 (0.00-0.02); NRBC Auto 0.2 /100 WBC (0.0-0.2); RDW Coefficient Variation 19.2 % (11.7-14.2); RDW Standard Deviation 55.3 fL (35.1-46.3)
[2025-03-18 06:15] LABS: Platelet Count 32 K/mm3 (150-400)
[2025-03-18 06:26] LABS: Anion Gap 10.0 mmol/L (3-11); Blood Urea Nitrogen 14.0 mg/dL (8-24); CO2, Blood 26.0 mmol/L (21-32); Calcium, Blood 8.4 mg/dL (8.5-10.1); Chloride, Blood 106.0 mmol/L (98-108); Creatinine, Blood 0.9 mg/dL (0.60-1.20); Glucose, Blood 90.0 mg/dL (70-99); Potassium, Blood 3.5 mmol/L (3.5-5.5); Sodium, Blood 138.0 mmol/L (136-145)
[2025-03-18 06:38] LABS: BAND PERCENT MAN 10 % (0-8); BASOPHILS ABSOLUTE MAN 0.00 K/mm3 (0.00-0.23); BASOPHILS PERCENT MAN 0 % (0-2); EOSINOPHILS ABSOLUTE MAN 0.00 K/mm3 (0.00-0.68); EOSINOPHILS PERCENT MAN 0 % (0-6); LYMPHOCYTES ABSOLUTE MAN 0.19 K/mm3 (0.84-5.20); LYMPHOCYTES PERCENT MAN 2 % (21-46); METAMYELOCYTE ABSOLUTE MAN 0.48 K/mm3 (0.00-0.00); METAMYELOCYTE PERCENT MAN 5 % (0-0); MONOCYTES ABSOLUTE MAN 0.58 K/mm3 (0.16-1.47); MONOCYTES PERCENT MAN 6 % (4-13); MYELOCYTE ABSOLUTE MAN 0.19 K/mm3 (0.00-0.00); MYELOCYTE PERCENT MAN 2 % (0-0); NEUTROPHILS ABSOLUTE MAN 8.22 K/mm3 (1.96-9.15); SEG NEUTROPHILS PERCENT MAN 75 % (41-73)
--- NOTE | 2025-03-18 08:06 | NUR ---
Rounded with resident MD at this time. Pt is sitting on side of bed, eating breakfast without difficulty. STates that he is feeling much better than when he came into the hospital. Still requiring 4-6 l/min of O2 to keep spo2 greater than 87%. Trialed on room air and spo2 dropped to 80-84%, albeit without distress. Pt's biggest concern is that his dogs are without any food or water and he has no friends or family who can help. He has called the nitric acid concentrator operator to discuss help, but the dogs are unable to be helped by anyone as they are aggressive and protective of the property. The pt is wanting to go home primarily to take care of the dogs.
[2025-03-18 08:10] VITALS: BP 138/83
[2025-03-18 11:11] VITALS: BP 130/71
--- NOTE | 2025-03-18 11:11 | NUR ---
The pt is very irritated, states that he is wasting time here in the hospital when he could be home taking care of his dogs. He said he isn't getting any drugs so he doesn't see why he needs to be here. I spoke with Dr. Tijerina and informed her of the patient's concerns. She will speak with Dr. Ford and they will get back with us regarding plan of care. The pt is still requiring oxygen at rest.
[2025-03-18 13:23] LABS: Hematocrit 29.8 % (37.0-53.0); Hemoglobin 9.7 g/dL (13.5-17.5); Mean Corpuscular HGB Conc 32.6 g/dL (31.5-36.5); Mean Corpuscular Volume 84 fL (80-100); NRBC ABSOLUTE 0.00 K/mm3 (0.00-0.02); NRBC Auto 0.0 /100 WBC (0.0-0.2); RDW Coefficient Variation 19.5 % (11.7-14.2); RDW Standard Deviation 55.8 fL (35.1-46.3)
[2025-03-18 13:35] LABS: Platelet Count 20 K/mm3 (150-400)
--- NOTE | 2025-03-18 13:41 | NUR ---
PALLIATIVE CARE VISIT: REVIEWED MEDICAL RECORD PRIOR TO VISIT. NOTIFIED PRIMARY RN OF INTENDED VISIT. MET WITH PT IN HIS ROOM. PT IS NOT AGREEABLE TO MEETING WITH PALLIATIVE CARE. ATTEMPTED TO DISCUSS SYMPTOM MANAGEMENT AND PT STATED HE DID NOT HAVE ANY NEED FOR DISCUSSION. ALSO ATTEMPTED TO DISCUSS ADVANCE CARE PLANNING. PT DECLINED DISCUSSION BUT WAS AGREEABLE TO TAKING ADVANCE DIRECTIVE PAMPHLET TO REVIEW HIMSELF. LEFT ADVANCE DIRECTIVE WITH HIM.
[2025-03-18 13:48] LABS: BAND PERCENT MAN 6 % (0-8); BASOPHILS ABSOLUTE MAN 0.00 K/mm3 (0.00-0.23); BASOPHILS PERCENT MAN 0 % (0-2); EOSINOPHILS ABSOLUTE MAN 0.18 K/mm3 (0.00-0.68); EOSINOPHILS PERCENT MAN 2 % (0-6); LYMPHOCYTES ABSOLUTE MAN 1.01 K/mm3 (0.84-5.20); LYMPHOCYTES PERCENT MAN 11 % (21-46); METAMYELOCYTE ABSOLUTE MAN 0.09 K/mm3 (0.00-0.00); METAMYELOCYTE PERCENT MAN 1 % (0-0); MONOCYTES ABSOLUTE MAN 0.27 K/mm3 (0.16-1.47); MONOCYTES PERCENT MAN 3 % (4-13); MYELOCYTE ABSOLUTE MAN 0.27 K/mm3 (0.00-0.00); MYELOCYTE PERCENT MAN 3 % (0-0); NEUTROPHILS ABSOLUTE MAN 7.41 K/mm3 (1.96-9.15); SEG NEUTROPHILS PERCENT MAN 74 % (41-73)
[2025-03-18] MEDS ORDERED: IMMUN GLOB G(IGG)/PRO/IGA 0-50 100 ML IV SCH (14:55)
--- NOTE | 2025-03-18 15:38 | NUR ---
IVIG infusion started. The pt has only 1 IV site, in the right AC space. He is right handed and has a hard time remembering to keep the arm straight to avoid occlusion during infusion. He is also so hard of hearing that he cannot hear when the pump alarms from occlusion. IV site supported with washcloths to prevent occlusion. He was a bit annoyed at the inconvenience. Suggested to the patient that I start another IV in a more convenient spot for him. He declined.
[2025-03-18 16:25] VITALS: BP 129/68
[2025-03-18 17:18] VITALS: BP 132/71
--- NOTE | 2025-03-18 17:45 | NUR ---
Vital signs are stable. Sinus rhythm with premature atrial contractions noted. Blood pressure, temperature and respiratory rate are stable. He remains consistently tachypneic, without distress. Oxygen requirements remain stable, 4 l/min at rest and 6 l/min O2 dose with activity.
[2025-03-18 20:17] VITALS: BP 117/74
[2025-03-19] VITALS (8 sets, daily range): BP systolic 109–149; BP diastolic 64–81
[2025-03-19 05:30] LABS: BASOPHILS ABSOLUTE AUTO 0.08 K/mm3 (0.00-0.23); BASOPHILS PERCENT AUTO 1 % (0-2); EOSINOPHILS ABSOLUTE AUTO 0.20 K/mm3 (0.00-0.68); EOSINOPHILS PERCENT AUTO 2 % (0-6); Hematocrit 30.0 % (37.0-53.0); Hemoglobin 9.5 g/dL (13.5-17.5); IMMATURE GRAN ABSOLUTE AUTO 0.62 K/mm3 (0.00-0.10); IMMATURE GRAN PERCENT AUTO 5 % (0-1); LYMPHOCYTES ABSOLUTE AUTO 1.08 K/mm3 (0.84-5.20); LYMPHOCYTES PERCENT AUTO 9 % (21-46); MONOCYTES ABSOLUTE AUTO 0.82 K/mm3 (0.16-1.47); MONOCYTES PERCENT AUTO 6 % (4-13); Mean Corpuscular HGB Conc 31.7 g/dL (31.5-36.5); Mean Corpuscular Volume 87 fL (80-100); NEUTROPHILS ABSOLUTE AUTO 9.94 K/mm3 (1.96-9.15); NEUTROPHILS PERCENT AUTO 78 % (41-73); NRBC ABSOLUTE 0.02 K/mm3 (0.00-0.02); NRBC Auto 0.2 /100 WBC (0.0-0.2); RDW Coefficient Variation 19.9 % (11.7-14.2); RDW Standard Deviation 59.8 fL (35.1-46.3)
[2025-03-19 05:36] LABS: Platelet Count 33 K/mm3 (150-400)
[2025-03-19 05:46] LABS: Anion Gap 8.0 mmol/L (3-11); Blood Urea Nitrogen 14.0 mg/dL (8-24); CO2, Blood 26.0 mmol/L (21-32); Calcium, Blood 8.5 mg/dL (8.5-10.1); Chloride, Blood 104.0 mmol/L (98-108); Creatinine, Blood 0.81 mg/dL (0.60-1.20); Glucose, Blood 98.0 mg/dL (70-99); Potassium, Blood 3.5 mmol/L (3.5-5.5); Sodium, Blood 134.0 mmol/L (136-145)
--- NOTE | 2025-03-19 06:11 | NUR ---
SHIFT SUMMARY PATIENT ALERT AND ORIENTED X4. HAD NO COMPLAINTS OF PAIN. IS TACHYPNIC AT REST AND DYSPNIC UPON EXERTION. CURRENTLY ON 8 LITERS O2 VIA NC. VITAL SIGNS STABLE. WILL CONTINUE TO MONITOR. CALL LIGHT WITHIN REACH.
[2025-03-19] MEDS ORDERED: Furosemide 10 MG / ML 2ML Vial IV SCH (09:00)
--- NOTE | 2025-03-19 10:24 | NUR ---
PT IS A&Ox4 AND ABLE TO MAKE NEEDS KNOWN. HE IS ON 3 1/2LNC W/O2 SATS > 90%. HE STANDS @ BEDSIDE TO USE THE URINAL. HE IS ON A REGULAR DIET. 1 UNIT FFP'S CURRENTLY RUNNING. PT DID STATE THIS MORNING THAT HE WOULD LEAVE AMA IF HE DID NOT GET DISCHARGED TODAY, D/T HAVING DOGS @ HOME THAT HE NEEDS TO TAKE CARE OF. NO OTHER NEEDS OR CONCERNS NOTED @ THIS TIME. BED IN LOW POSITION, CALL LIGHT AND PERSONAL BELONGINGS IN REACH. REPORT GIVEN TO JOSE SOTO @ 1010 FOR PT TO TRANSFER TO [facility].
[2025-03-19 11:58] LABS: BASOPHILS ABSOLUTE AUTO 0.06 K/mm3 (0.00-0.23); BASOPHILS PERCENT AUTO 1 % (0-2); EOSINOPHILS ABSOLUTE AUTO 0.22 K/mm3 (0.00-0.68); EOSINOPHILS PERCENT AUTO 2 % (0-6); Hematocrit 30.4 % (37.0-53.0); Hemoglobin 9.7 g/dL (13.5-17.5); IMMATURE GRAN ABSOLUTE AUTO 0.53 K/mm3 (0.00-0.10); IMMATURE GRAN PERCENT AUTO 4 % (0-1); LYMPHOCYTES ABSOLUTE AUTO 0.99 K/mm3 (0.84-5.20); LYMPHOCYTES PERCENT AUTO 8 % (21-46); MONOCYTES ABSOLUTE AUTO 0.87 K/mm3 (0.16-1.47); MONOCYTES PERCENT AUTO 7 % (4-13); Mean Corpuscular HGB Conc 31.9 g/dL (31.5-36.5); Mean Corpuscular Volume 85 fL (80-100); NEUTROPHILS ABSOLUTE AUTO 10.31 K/mm3 (1.96-9.15); NEUTROPHILS PERCENT AUTO 79 % (41-73); NRBC ABSOLUTE 0.00 K/mm3 (0.00-0.02); NRBC Auto 0.0 /100 WBC (0.0-0.2); Platelet Count 105 K/mm3 (150-400); RDW Coefficient Variation 19.8 % (11.7-14.2); RDW Standard Deviation 57.1 fL (35.1-46.3)
--- NOTE | 2025-03-19 12:05 | NUR ---
received report from seed corn production manager. to room at 1115. home o2 eval being done
--- NOTE | 2025-03-19 12:41 | NUR ---
akin in to room for o2. pt refused that co. called [facility]. will attempt miesha.
--- NOTE | 2025-03-19 14:33 | NUR ---
PT IN AGREEMENT TO STAY IN HOSPITAL UNTIL TOMORROW. NOTIFIED DR COOPER OF PATIENT AGREEING TO STAY
--- NOTE | 2025-03-19 18:30 | NUR ---
PT PLEASANT SINCE TRANSFER FROM PCU. VERY [place]. DESATS VERY QUICKLY WITH ANY MOMENENT. WE WERE ABLE TO GET HIS PORTABLE O2 HERE AT BEDSIDE SO CAN GO HOME. DR COOPER HOPEFUL TO GET TO STAY FOR TOMORROW. PT AGREED TO STAY UNTIL TOMORROW. O2 HOME EVAL DONE. HE ON 3L AT REST AND 10 L AT AMBULATION. DESATS QUICKLY ON R/A, WHICH HE DID FOR A FEW MOMENTS. CONTINUOUS BIOX ON PER ORDERS. LUNGS CRACKLES BASES. LASIX GIVEN PER ORDERS. PT CONTINUES TO BE EAGER TO GO HOME. NO OTHER CONCERNS NOTED. BED IN LOW POSITION, CALL LITE IN REACH, BED ALARM ON FOR SAFETY
[2025-03-20 01:09] VITALS: BP 108/60
--- NOTE | 2025-03-20 05:25 | NUR ---
SHIFT SUMMARY PT IS ALERT AND ORIENTED TIMES 4. PT IS FULL CODE. ADMITTED FOR THROMBOCYTOPENIA . PT HAS BEEN MUCH MORE COOPERATIVE WITH CARE RECENTLY ABLE TO MAKE NEEDS KNOWN. PT IS INDEPENDENT AND ABLE TO USE URINAL AT BEDSIDE. PT APPEARED TO SLEEP ON AND OFF THROUGH THE NIGHT. BED IS IN LOW POSITION, RAILS TIMES TWO, AND CALL LIGHT WITHIN REACH.
[2025-03-20 05:27] VITALS: BP 116/70
[2025-03-20 05:40] LABS: BASOPHILS ABSOLUTE AUTO 0.06 K/mm3 (0.00-0.23); BASOPHILS PERCENT AUTO 1 % (0-2); EOSINOPHILS ABSOLUTE AUTO 0.30 K/mm3 (0.00-0.68); EOSINOPHILS PERCENT AUTO 3 % (0-6); Hematocrit 28.6 % (37.0-53.0); Hemoglobin 9.2 g/dL (13.5-17.5); IMMATURE GRAN ABSOLUTE AUTO 0.25 K/mm3 (0.00-0.10); IMMATURE GRAN PERCENT AUTO 3 % (0-1); LYMPHOCYTES ABSOLUTE AUTO 0.89 K/mm3 (0.84-5.20); LYMPHOCYTES PERCENT AUTO 10 % (21-46); MONOCYTES ABSOLUTE AUTO 0.69 K/mm3 (0.16-1.47); MONOCYTES PERCENT AUTO 8 % (4-13); Mean Corpuscular HGB Conc 32.2 g/dL (31.5-36.5); Mean Corpuscular Volume 85 fL (80-100); NEUTROPHILS ABSOLUTE AUTO 6.53 K/mm3 (1.96-9.15); NEUTROPHILS PERCENT AUTO 75 % (41-73); NRBC ABSOLUTE 0.02 K/mm3 (0.00-0.02); NRBC Auto 0.2 /100 WBC (0.0-0.2); Platelet Count 89 K/mm3 (150-400); RDW Coefficient Variation 19.8 % (11.7-14.2); RDW Standard Deviation 58.6 fL (35.1-46.3)
[2025-03-20 06:06] LABS: Anion Gap 7.0 mmol/L (3-11); Blood Urea Nitrogen 19.0 mg/dL (8-24); CO2, Blood 29.0 mmol/L (21-32); Calcium, Blood 8.5 mg/dL (8.5-10.1); Chloride, Blood 101.0 mmol/L (98-108); Creatinine, Blood 0.95 mg/dL (0.60-1.20); Glucose, Blood 97.0 mg/dL (70-99); Potassium, Blood 3.4 mmol/L (3.5-5.5); Sodium, Blood 134.0 mmol/L (136-145)
[2025-03-20 07:26] VITALS: BP 121/65
[2025-03-20] MEDS ORDERED: Polyethylene Glycol 3350 17 gm PO PRN (09:15)
[2025-03-20 15:46] VITALS: BP 110/63
--- NOTE | 2025-03-20 19:38 | NUR ---
PT PLEASANT AND COOP TODAY. QUITE HRD OF TAYLOR. DID AGREE TO STY TODAY. HAS HOME O2 TANKS AT BEDSIDE TO [facility]. MUST CALL FOR O2 WHEN GOES HOME . PT AMBULATED TO BATHROOM TODYA. TURN O2 UP TO 10 WHEN MOVES, BACK DOWN TO 3 AT REST. TOLERATING WELL. SOB IMPROVED. DID HAVE A BM TODAY. LUNGS CRACKLES BASES TODAY. NO FURHTER CONCERNS NOTED. BED INL OW POSITION, CALL LITE IN REACH, CALLS APROP
[2025-03-20 19:54] VITALS: BP 106/61
[2025-03-21 00:57] VITALS: BP 107/67
--- NOTE | 2025-03-21 05:41 | NUR ---
PT C/0 OF A HEADACHE TYLENOL GIVEN RX. PT SLEPT T/O THE SHIFT AND DENIED PAIN OR NEEDS. PT REMAINS ON 3L O2 AT REST.
[2025-03-21 05:43] VITALS: BP 108/60
[2025-03-21 05:51] LABS: BASOPHILS ABSOLUTE AUTO 0.02 K/mm3 (0.00-0.23); BASOPHILS PERCENT AUTO 0 % (0-2); EOSINOPHILS ABSOLUTE AUTO 0.01 K/mm3 (0.00-0.68); EOSINOPHILS PERCENT AUTO 0 % (0-6); Hematocrit 31.9 % (37.0-53.0); Hemoglobin 10.2 g/dL (13.5-17.5); IMMATURE GRAN ABSOLUTE AUTO 0.12 K/mm3 (0.00-0.10); IMMATURE GRAN PERCENT AUTO 1 % (0-1); LYMPHOCYTES ABSOLUTE AUTO 0.52 K/mm3 (0.84-5.20); LYMPHOCYTES PERCENT AUTO 5 % (21-46); MONOCYTES ABSOLUTE AUTO 0.61 K/mm3 (0.16-1.47); MONOCYTES PERCENT AUTO 6 % (4-13); Mean Corpuscular HGB Conc 32.0 g/dL (31.5-36.5); Mean Corpuscular Volume 85 fL (80-100); NEUTROPHILS ABSOLUTE AUTO 9.53 K/mm3 (1.96-9.15); NEUTROPHILS PERCENT AUTO 88 % (41-73); NRBC ABSOLUTE 0.00 K/mm3 (0.00-0.02); NRBC Auto 0.0 /100 WBC (0.0-0.2); Platelet Count 237 K/mm3 (150-400); RDW Coefficient Variation 19.7 % (11.7-14.2); RDW Standard Deviation 59.4 fL (35.1-46.3)
[2025-03-21 06:09] LABS: Anion Gap 7.0 mmol/L (3-11); Blood Urea Nitrogen 28.0 mg/dL (8-24); CO2, Blood 28.0 mmol/L (21-32); Calcium, Blood 9.1 mg/dL (8.5-10.1); Chloride, Blood 101.0 mmol/L (98-108); Creatinine, Blood 0.8 mg/dL (0.60-1.20); Glucose, Blood 126.0 mg/dL (70-99); Potassium, Blood 3.6 mmol/L (3.5-5.5); Sodium, Blood 132.0 mmol/L (136-145)
[2025-03-21 06:56] LABS: Magnesium, Blood 2.1 mg/dL (1.6-2.4)
[2025-03-21 07:58] VITALS: BP 110/59
[2025-03-21] MEDS ORDERED: FURO20 PO (11:52)
[2025-03-21] MEDS ORDERED: PRED20 PO (11:53)
--- NOTE | 2025-03-21 13:13 | NUR ---
DC SUMMARY PT DC HOME THIS SHIFT. DC INSTRUCTION GONE OVER WITH PT BY LENA GARCIA. PT WAS ESCORTED OUT TO [facility] BY RURAL SOCIOLOGIST. PT WAS GIVEN HARD COPY FOR LABS AND PT PLACED IT IN DC PACKET.
== END 2025-03-21 12:57 | disposition home or self-care (01) | DRG 813 ==
LOC: ER 05:35 → PCU 05:36 → MEDS 03-19 11:07
PROVIDERS: Emergency Medicine; Student in an Organized Health Care Education/Training Program; ADMIT Internal Medicine
PROC: 30233R1 Transfusion of Nonautologous Platelets into Peripheral Vein, Percutaneous Approach (ICD-10-PCS; principal; 2025-03-17)
PROC: 30233S1 Transfusion of Nonautologous Globulin into Peripheral Vein, Percutaneous Approach (ICD-10-PCS; 2025-03-17)
DX: D69.3 Immune thrombocytopenic purpura (principal); J96.01 Acute respiratory failure with hypoxia; I50.32 Chronic diastolic (congestive) heart failure; R04.2 Hemoptysis; I25.10 Atherosclerotic heart disease of native coronary artery without angina pectoris; J44.9 Chronic obstructive pulmonary disease, unspecified; E78.5 Hyperlipidemia, unspecified; E03.9 Hypothyroidism, unspecified; I48.0 Paroxysmal atrial fibrillation; R91.1 Solitary pulmonary nodule; I11.0 Hypertensive heart disease with heart failure; F32.A Depression, unspecified; Z60.2 Problems related to living alone; D64.9 Anemia, unspecified; E87.6 Hypokalemia; D72.820 Lymphocytosis (symptomatic); N40.0 Benign prostatic hyperplasia without lower urinary tract symptoms; I27.20 Pulmonary hypertension, unspecified; D72.829 Elevated white blood cell count, unspecified; I35.2 Nonrheumatic aortic (valve) stenosis with insufficiency; I08.0 Rheumatic disorders of both mitral and aortic valves; I25.2 Old myocardial infarction; Z87.19 Personal history of other diseases of the digestive system; Z87.891 Personal history of nicotine dependence; Z86.018 Personal history of other benign neoplasm; Z95.5 Presence of coronary angioplasty implant and graft; Z86.73 Personal history of transient ischemic attack (TIA), and cerebral infarction without residual deficits; Z98.890 Other specified postprocedural states; Z79.899 Other long term (current) drug therapy; Z79.51 Long term (current) use of inhaled steroids; Z79.82 Long term (current) use of aspirin; Z79.2 Long term (current) use of antibiotics; Z87.01 Personal history of pneumonia (recurrent); Z86.19 Personal history of other infectious and parasitic diseases
CPT/HCPCS: 36415; 36430; 71046; 71260; 80048; 80053; 83735; 85025; 85027; 85384; 85610; 85730; 86850; 86870; 86900; 86901; 86922; 93005; 93010; 93306; 94640; 94664; 94761; 94762; 96374; 96375; 96376; 99285-25; A9270; G0378; J1459; J1938; J7030; J7040; J7512; P9016; P9035; Q9967

== ENCOUNTER → 2025-04-07 | Outpatient (CLI) | payer OTHER ==
[~2025-04-07] MED LIST changes: +FURO20 PO
[2025-04-07 16:08] LABS: Anion Gap 9.0 mmol/L (3-11); Blood Urea Nitrogen 21.0 mg/dL (8-24); CO2, Blood 24.0 mmol/L (21-32); Calcium, Blood 8.7 mg/dL (8.5-10.1); Chloride, Blood 106.0 mmol/L (98-108); Creatinine, Blood 0.89 mg/dL (0.60-1.20); Glucose, Blood 99.0 mg/dL (70-99); Potassium, Blood 4.3 mmol/L (3.5-5.5); Sodium, Blood 135.0 mmol/L (136-145)
== END ==
LOC: LAB SHORT 14:24 → LAB 14:24
DX: I50.32 Chronic diastolic (congestive) heart failure (principal)
CPT/HCPCS: 80048

== ENCOUNTER 2025-04-18 12:20 | Inpatient (IN) | payer OTHER ==
[~2025-04-18] VITALS: Ht 182.9 cm; Wt 67.0 kg
[2025-04-18 13:44] LABS: Hematocrit 29.9 % (37.0-53.0); Hemoglobin 9.4 g/dL (13.5-17.5); Mean Corpuscular HGB Conc 31.4 g/dL (31.5-36.5); Mean Corpuscular Volume 85 fL (80-100); NRBC ABSOLUTE 0.00 K/mm3 (0.00-0.02); NRBC Auto 0.0 /100 WBC (0.0-0.2); Platelet Count 423 K/mm3 (150-400); RDW Coefficient Variation 16.9 % (11.7-14.2); RDW Standard Deviation 52.9 fL (35.1-46.3)
[2025-04-18 13:59] LABS: Alanine Aminotransfer (ALT/SGP 34.0 U/L (12-78); Albumin, Blood 2.5 g/dL (3.4-5.0); Albumin/Globulin Ratio 0.6 (0.8-1.8); Anion Gap 9.0 mmol/L (3-11); Aspartate Aminotrans (AST/SGOT 36.0 U/L (12-37); Bilirubin, Total 0.3 mg/dL (0.1-1.0); Blood Urea Nitrogen 25.0 mg/dL (8-24); CO2, Blood 24.0 mmol/L (21-32); Calcium, Blood 8.6 mg/dL (8.5-10.1); Chloride, Blood 106.0 mmol/L (98-108); Creatinine, Blood 1.01 mg/dL (0.60-1.20); Globulin, Blood 4.5 g/dL (2.2-4.0); Glucose, Blood 106.0 mg/dL (70-99); Potassium, Blood 3.2 mmol/L (3.5-5.5); Sodium, Blood 136.0 mmol/L (136-145); Total Protein, Blood 7.0 g/dL (6.4-8.2)
[2025-04-18 14:19] LABS: BAND PERCENT MAN 4 % (0-8); BASOPHILS ABSOLUTE MAN 0.02 K/mm3 (0.00-0.23); BASOPHILS PERCENT MAN 1 % (0-2); EOSINOPHILS ABSOLUTE MAN 0.12 K/mm3 (0.00-0.68); EOSINOPHILS PERCENT MAN 5 % (0-6); LYMPHOCYTES ABSOLUTE MAN 0.76 K/mm3 (0.84-5.20); LYMPHOCYTES PERCENT MAN 31 % (21-46); MONOCYTES ABSOLUTE MAN 0.64 K/mm3 (0.16-1.47); MONOCYTES PERCENT MAN 26 % (4-13); NEUTROPHILS ABSOLUTE MAN 0.91 K/mm3 (1.96-9.15); SEG NEUTROPHILS PERCENT MAN 33 % (41-73)
[2025-04-18] MEDS ORDERED: Albuterol 2.5 MG/3 ML VIAL INH PRN (17:05)
[2025-04-18 17:52] LABS: Prothrombin Time Results 12.6 Sec (9.7-11.5)
[2025-04-18] MEDS ORDERED: Dose Adjust by Pharmacy XX STA (18:23)
[2025-04-18] MEDS ORDERED: Heparin Sodium 5000 Units/ML 1ML MDV IV ONE (18:25)
[2025-04-18] MEDS ORDERED: Heparin Sodium,Porcine/0.5 NS 500 ML IV SCH (18:25)
[2025-04-18 18:56] VITALS: BP 102/55
[2025-04-19 00:15] VITALS: BP 96/57
[2025-04-19 01:03] LABS: Hematocrit 26.4 % (37.0-53.0); Hemoglobin 8.4 g/dL (13.5-17.5); Mean Corpuscular HGB Conc 31.8 g/dL (31.5-36.5); Mean Corpuscular Volume 85 fL (80-100); NRBC ABSOLUTE 0.00 K/mm3 (0.00-0.02); NRBC Auto 0.0 /100 WBC (0.0-0.2); Platelet Count 352 K/mm3 (150-400); RDW Coefficient Variation 16.6 % (11.7-14.2); RDW Standard Deviation 51.5 fL (35.1-46.3)
[2025-04-19 01:34] LABS: Anion Gap 9 mmol/L (3-11); Blood Urea Nitrogen 21 mg/dL (8-24); CHOL/HDL RATIO 4.6; CO2, Blood 24 mmol/L (21-32); Calcium, Blood 8.4 mg/dL (8.5-10.1); Chloride, Blood 109 mmol/L (98-108); Cholesterol 82 mg/dL (50-200); Creatinine, Blood 0.86 mg/dL (0.60-1.20); Glucose, Blood 106 mg/dL (70-99); HDL Cholesterol 18 mg/dL (>39); LDL/HDL RATIO 2.1; Low Density Lipoprotein Chol 38 mg/dL (0-110); Potassium, Blood 3.7 mmol/L (3.5-5.5); Sodium, Blood 138 mmol/L (136-145); Triglycerides 131 mg/dL (30-160); Very Low Density Lipoprot Chol 26 mg/dL (6-32)
[2025-04-19 01:46] LABS: BAND PERCENT MAN 8 % (0-8); BASOPHILS ABSOLUTE MAN 0.00 K/mm3 (0.00-0.23); BASOPHILS PERCENT MAN 0 % (0-2); EOSINOPHILS ABSOLUTE MAN 0.22 K/mm3 (0.00-0.68); EOSINOPHILS PERCENT MAN 12 % (0-6); LYMPHOCYTES ABSOLUTE MAN 0.66 K/mm3 (0.84-5.20); LYMPHOCYTES PERCENT MAN 36 % (21-46); METAMYELOCYTE ABSOLUTE MAN 0.01 K/mm3 (0.00-0.00); METAMYELOCYTE PERCENT MAN 1 % (0-0); MONOCYTES ABSOLUTE MAN 0.50 K/mm3 (0.16-1.47); MONOCYTES PERCENT MAN 27 % (4-13); MYELOCYTE ABSOLUTE MAN 0.05 K/mm3 (0.00-0.00); MYELOCYTE PERCENT MAN 3 % (0-0); NEUTROPHILS ABSOLUTE MAN 0.39 K/mm3 (1.96-9.15); SEG NEUTROPHILS PERCENT MAN 13 % (41-73)
[2025-04-19] MEDS ORDERED: Dose Adjust by Pharmacy XX STA (01:49)
[2025-04-19 03:59] VITALS: BP 109/61
--- NOTE | 2025-04-19 05:49 | NUR ---
END OF SHIFT SUMMAARY PT ADMITTED TO UNIT RIGHT BEFORE THIS SHIFT STARTED. HEPARIN DRIP STARTED AT 15 UNIT/KG/HR AND PLAN OF CARE DISCUSSED W TROPONIN DRAWS AND ANTIXA LABS RECQUIRED FOR NSTEMI CARE. HEPARING DRIP TITRATED TO 19 UNITS/KG/HR PER PHARMACIST AND NEXT HEP XA LEVEL AT 0800. PT HAS ECHO ORDERED AND CARDIOLOGY AWARE VIA ER DR NOTE OF PT. PT VSS OVERNIGHT, IN NSR W NO PAROXIMAL AFIB OVERNIGHT. PT DENIED ANY CHEST PAIN OR DISCOMFORT. PT NPO AT THIS TIME FOR POSS CARDIAC INTERVENTION IF NEEDED VIA CATHLAB.
[2025-04-19 08:05] VITALS: BP 95/66
--- NOTE | 2025-04-19 08:24 | NUR ---
Bedside shift report from JOSE Ibarra. Pt is alert, oriented, CAMPO, cooperative and denies any pain or discomfort. Denies dyspnea. V/s stable, normal sinus rhythm noted by bedside slip cover maker. RR 12/min, lung sounds are clear. No edema noted. Skin is pink, warm and dry. Pt is wanting to eat as soon as he can. Explained plan for Echo, continued heparin gtt until doctor rounds and updates the plan of care.
--- NOTE | 2025-04-19 09:56 | NUR ---
Dr. Valerio here. she spoke already with Dr. Chawla.
[2025-04-19 11:14] LABS: Source, Urine Clean Catch
[2025-04-19 11:21] LABS: Bilirubin, Urine Neg (Neg); Color, Urine Yellow (P-Yellow); Glucose Qualitative, Urine Neg (Neg); Ketones, Urine Neg (Neg); Leukocyte Esterase, Urine Neg (Neg); Protein, Urine 1+ (Neg); Specific Gravity, Urine 1.020 (1.003-1.022); Urobilinogen, Urine NORM (Normal)
--- NOTE | 2025-04-19 11:25 | NUR ---
UA and respiratory panel sent, pt went down for chest xray.
[2025-04-19 11:58] VITALS: BP 96/64
--- NOTE | 2025-04-19 12:07 | NUR ---
UA results were negative. Pt is sitting on side of bed, eating lunch. V/S are stable. He has no complaints, no pain, no dyspnea, no noted cough.
[2025-04-19 12:09] LABS: Influenza A/2009-H1 Not Detected (NOT DETECT); SARS-Cov-2 (COVID-19), BioFire Not Detected (NOT DETECT)
--- NOTE | 2025-04-19 13:39 | NUR ---
Pt is asking for excedrin for headache. Called to ask Dr. Valerio for this as well as update her on pt's recent results from lab. She will be starting the pt on folic acid per Dr. Golden (powder press operator) recommendation, and keeping pt in hospital due to dropping WBC count.
[2025-04-19] MEDS ORDERED: Acetaminophen/Aspirin/Caffeine 250/250/65 MG PO PRN (13:40)
[2025-04-19] MEDS ORDERED: FILGRASTIM-AYOW 480 MCG/0.8 ML 0.8MLSYR SC SCH (14:00)
[2025-04-19 15:06] VITALS: BP 93/79
[2025-04-19 20:36] VITALS: BP 94/53
[2025-04-20] VITALS (7 sets, daily range): BP systolic 86–113; BP diastolic 55–62
[2025-04-20 06:26] LABS: Hematocrit 29.7 % (37.0-53.0); Hemoglobin 9.4 g/dL (13.5-17.5); Mean Corpuscular HGB Conc 31.6 g/dL (31.5-36.5); Mean Corpuscular Volume 85 fL (80-100); NRBC ABSOLUTE 0.00 K/mm3 (0.00-0.02); NRBC Auto 0.0 /100 WBC (0.0-0.2); Platelet Count 368 K/mm3 (150-400); RDW Coefficient Variation 16.6 % (11.7-14.2); RDW Standard Deviation 51.6 fL (35.1-46.3)
--- NOTE | 2025-04-20 06:27 | NUR ---
SHIFT SUMMARY: PT IS A&OX4, VERY [place]. BP SOFT, SYS IN THE 90'S, MAP >65, ON RA. SR IN THE 90'S. DENIES PAIN THIS SHIFT. TOLERATING A REGULAR DIET. UP AD BERNADETTE INDEPENDENTLY IN ROOM/BR. VOIDING SMALL AMOUNTS OF KRISTA COLORED URINE IN URINAL. NO BM THIS SHIFT. BED IN LOWEST POSITION, CALL LIGHT WITHIN REACH. CALLS APPROPRIATELY AND IS ABLE TO ADVOCATE NEEDS EFFECTIVELY.
[2025-04-20 06:55] LABS: BAND PERCENT MAN 27 % (0-8); BASOPHILS ABSOLUTE MAN 0.07 K/mm3 (0.00-0.23); BASOPHILS PERCENT MAN 1 % (0-2); EOSINOPHILS ABSOLUTE MAN 0.15 K/mm3 (0.00-0.68); EOSINOPHILS PERCENT MAN 2 % (0-6); LYMPHOCYTES ABSOLUTE MAN 0.62 K/mm3 (0.84-5.20); LYMPHOCYTES PERCENT MAN 8 % (21-46); METAMYELOCYTE ABSOLUTE MAN 0.23 K/mm3 (0.00-0.00); METAMYELOCYTE PERCENT MAN 3 % (0-0); MONOCYTES ABSOLUTE MAN 0.77 K/mm3 (0.16-1.47); MONOCYTES PERCENT MAN 10 % (4-13); NEUTROPHILS ABSOLUTE MAN 5.91 K/mm3 (1.96-9.15); SEG NEUTROPHILS PERCENT MAN 49 % (41-73)
[2025-04-20 06:56] LABS: Alanine Aminotransfer (ALT/SGP 34.0 U/L (12-78); Albumin, Blood 2.5 g/dL (3.4-5.0); Albumin/Globulin Ratio 0.6 (0.8-1.8); Anion Gap 8.0 mmol/L (3-11); Aspartate Aminotrans (AST/SGOT 29.0 U/L (12-37); Bilirubin, Total 0.5 mg/dL (0.1-1.0); Blood Urea Nitrogen 13.0 mg/dL (8-24); CO2, Blood 22.0 mmol/L (21-32); Calcium, Blood 8.6 mg/dL (8.5-10.1); Chloride, Blood 107.0 mmol/L (98-108); Creatinine, Blood 0.74 mg/dL (0.60-1.20); Globulin, Blood 4.0 g/dL (2.2-4.0); Glucose, Blood 86.0 mg/dL (70-99); Potassium, Blood 3.8 mmol/L (3.5-5.5); Sodium, Blood 133.0 mmol/L (136-145); Total Protein, Blood 6.5 g/dL (6.4-8.2)
[2025-04-20] MEDS ORDERED: FILGRASTIM-AYOW 300 MCG/0.5 ML SYRINGE SC SCH (12:00)
--- NOTE | 2025-04-20 13:33 | NUR ---
Reviewed the pt's home med rec with [facility] medical health researcher by phone to clarify what is on the pt's current active prescriptions. MA said that the pt has recently told the provider that he won't take diltiazem 120 mg daily, for some unknown reason. Currently this admission the patient has not been taking this, and has been in sinus rhythm while in PCU, rate well controlled and blood pressures normal or low normal. The pt said he thinks he ran out of this medication, or might have 1 capsule left. The pt was instructed NOT to take this medication until he is evaluated by his PCP at his appointment next week, given his current vital signs. This was discussed with the MA at [facility]. The pt has lack of understanding about what his current medications are all for. These were reviewed in detail with him. [facility] Medication management program was also recommended to the pt. The pt currently lives alone with 2 dogs on [facility] property. He says that he is thinking about moving to [facility] to live near his son.
--- NOTE | 2025-04-20 13:38 | NUR ---
Pt taken in wheelchair by QUARRY SUPERVISOR to private vehicle for discharge home.
== END 2025-04-20 13:30 | disposition home or self-care (01) | DRG 281 ==
LOC: ER 12:20 → PCU 12:21
PROVIDERS: Pharmacist; Student in an Organized Health Care Education/Training Program; ADMIT Internal Medicine
DX: I48.0 Paroxysmal atrial fibrillation (principal); I50.32 Chronic diastolic (congestive) heart failure; I21.A1 Myocardial infarction type 2; I25.10 Atherosclerotic heart disease of native coronary artery without angina pectoris; J44.9 Chronic obstructive pulmonary disease, unspecified; E03.9 Hypothyroidism, unspecified; F32.A Depression, unspecified; H91.90 Unspecified hearing loss, unspecified ear; I11.0 Hypertensive heart disease with heart failure; E78.5 Hyperlipidemia, unspecified; D72.820 Lymphocytosis (symptomatic); K21.9 Gastro-esophageal reflux disease without esophagitis; D64.9 Anemia, unspecified; D75.839 Thrombocytosis, unspecified; E87.6 Hypokalemia; I25.2 Old myocardial infarction; Z95.5 Presence of coronary angioplasty implant and graft; Z79.82 Long term (current) use of aspirin; Z79.899 Other long term (current) drug therapy; Z86.73 Personal history of transient ischemic attack (TIA), and cerebral infarction without residual deficits; Z98.890 Other specified postprocedural states; Z87.891 Personal history of nicotine dependence
CPT/HCPCS: 0202U; 36415; 71046; 80048; 80053; 80061; 84484; 85025; 85520; 85610; 85730; 93005; 93010; 93308; 93321; 94760; 96365; 96366; 96367; 96376; 99285-25; A9270; G0378; J1644; J1956; Q5125

== ENCOUNTER 2025-08-22 08:02 | Emergency (ER) | payer OTHER ==
[~2025-08-22] VITALS: Ht 182.9 cm; Wt 67.1 kg
[~2025-08-22 08:02] MED LIST changes: +AMIODARONE HCL400 M2 PO; +AMOCLA875 PO; +FUROSEMIDE20 MG PO; +Lisinopril2.5 MG PO; +Midodrine HCl2.5 MG PO; +TOPROL XL25 MG PO
[2025-08-22 09:08] LABS: Hematocrit 32.1 % (37.0-53.0); Hemoglobin 9.6 g/dL (13.5-17.5); Mean Corpuscular HGB Conc 29.9 g/dL (31.5-36.5); Mean Corpuscular Volume 81 fL (80-100); NRBC ABSOLUTE 0.00 K/mm3 (0.00-0.02); NRBC Auto 0.0 /100 WBC (0.0-0.2); Platelet Count 238 K/mm3 (150-400); RDW Coefficient Variation 19.7 % (11.7-14.2); RDW Standard Deviation 55.8 fL (35.1-46.3)
[2025-08-22 09:27] LABS: Alanine Aminotransfer (ALT/SGP 224.0 U/L (12-78); Albumin, Blood 3.1 g/dL (3.4-5.0); Albumin/Globulin Ratio 0.7 (0.8-1.8); Anion Gap 10.0 mmol/L (3-11); Aspartate Aminotrans (AST/SGOT 46.0 U/L (12-37); Bilirubin, Total 0.5 mg/dL (0.1-1.0); Blood Urea Nitrogen 23.0 mg/dL (8-24); CO2, Blood 25.0 mmol/L (21-32); Calcium, Blood 8.6 mg/dL (8.5-10.1); Chloride, Blood 108.0 mmol/L (98-108); Creatinine, Blood 1.21 mg/dL (0.60-1.20); Globulin, Blood 4.5 g/dL (2.2-4.0); Glucose, Blood 98.0 mg/dL (70-99); Potassium, Blood 3.7 mmol/L (3.5-5.5); Sodium, Blood 139.0 mmol/L (136-145); Total Protein, Blood 7.6 g/dL (6.4-8.2)
[2025-08-22 09:34] LABS: BAND PERCENT MAN 8 % (0-8); BASOPHILS ABSOLUTE MAN 0.08 K/mm3 (0.00-0.23); BASOPHILS PERCENT MAN 1 % (0-2); EOSINOPHILS ABSOLUTE MAN 0.58 K/mm3 (0.00-0.68); EOSINOPHILS PERCENT MAN 7 % (0-6); LYMPHOCYTES ABSOLUTE MAN 1.00 K/mm3 (0.84-5.20); LYMPHOCYTES PERCENT MAN 12 % (21-46); METAMYELOCYTE ABSOLUTE MAN 0.50 K/mm3 (0.00-0.00); METAMYELOCYTE PERCENT MAN 6 % (0-0); MONOCYTES ABSOLUTE MAN 1.26 K/mm3 (0.16-1.47); MONOCYTES PERCENT MAN 15 % (4-13); MYELOCYTE ABSOLUTE MAN 0.16 K/mm3 (0.00-0.00); MYELOCYTE PERCENT MAN 2 % (0-0); NEUTROPHILS ABSOLUTE MAN 4.79 K/mm3 (1.96-9.15); SEG NEUTROPHILS PERCENT MAN 49 % (41-73)
[2025-08-22 10:25] LABS: Source, Urine Clean Catch
[2025-08-22 10:29] LABS: Bilirubin, Urine Neg (Neg); Color, Urine Yellow (P-Yellow); Glucose Qualitative, Urine Neg (Neg); Ketones, Urine Neg (Neg); Leukocyte Esterase, Urine Neg (Neg); Protein, Urine 1+ (Neg); Specific Gravity, Urine 1.020 (1.003-1.022); Urobilinogen, Urine NORM (Normal)
[2025-08-22 12:15] VITALS: BP 128/82
== END 2025-08-22 12:45 | disposition home or self-care (01) ==
LOC: ER 08:02
PROVIDERS: Student in an Organized Health Care Education/Training Program
DX: I82.612 Acute embolism and thrombosis of superficial veins of left upper extremity (principal); E86.0 Dehydration; I11.0 Hypertensive heart disease with heart failure; I50.20 Unspecified systolic (congestive) heart failure; I25.10 Atherosclerotic heart disease of native coronary artery without angina pectoris; J44.9 Chronic obstructive pulmonary disease, unspecified; E78.5 Hyperlipidemia, unspecified; E03.9 Hypothyroidism, unspecified; I48.0 Paroxysmal atrial fibrillation; I25.2 Old myocardial infarction; Z79.899 Other long term (current) drug therapy; Z79.82 Long term (current) use of aspirin; Z87.891 Personal history of nicotine dependence
CPT/HCPCS: 71046; 80053; 83605; 85025; 93971; 99284-25; J7120

== ENCOUNTER 2025-08-28 08:35 | Emergency (ER) | payer OTHER ==
[~2025-08-28] VITALS: Ht 185.4 cm; Wt 74.8 kg
[2025-08-28 09:50] LABS: BASOPHILS ABSOLUTE AUTO 0.05 K/mm3 (0.00-0.23); BASOPHILS PERCENT AUTO 2 % (0-2); EOSINOPHILS ABSOLUTE AUTO 0.06 K/mm3 (0.00-0.68); EOSINOPHILS PERCENT AUTO 2 % (0-6); Hematocrit 30.2 % (37.0-53.0); Hemoglobin 9.0 g/dL (13.5-17.5); IMMATURE GRAN ABSOLUTE AUTO 0.04 K/mm3 (0.00-0.10); IMMATURE GRAN PERCENT AUTO 1 % (0-1); LYMPHOCYTES ABSOLUTE AUTO 0.46 K/mm3 (0.84-5.20); LYMPHOCYTES PERCENT AUTO 14 % (21-46); MONOCYTES ABSOLUTE AUTO 0.28 K/mm3 (0.16-1.47); MONOCYTES PERCENT AUTO 8 % (4-13); Mean Corpuscular HGB Conc 29.8 g/dL (31.5-36.5); Mean Corpuscular Volume 81 fL (80-100); NEUTROPHILS ABSOLUTE AUTO 2.49 K/mm3 (1.96-9.15); NEUTROPHILS PERCENT AUTO 74 % (41-73); NRBC ABSOLUTE 0.00 K/mm3 (0.00-0.02); NRBC Auto 0.0 /100 WBC (0.0-0.2); Platelet Count 91 K/mm3 (150-400); RDW Coefficient Variation 19.8 % (11.7-14.2); RDW Standard Deviation 57.3 fL (35.1-46.3)
[2025-08-28 10:45] LABS: CORONAVIRUS COVID-19 AG Negative (NEGATIVE)
[2025-08-28] MEDS ORDERED: Furosemide 10 MG / ML 2ML Vial IV ONE (11:00)
[2025-08-28 12:00] VITALS: BP 132/80
[2025-08-28 12:05] LABS: Alanine Aminotransfer (ALT/SGP 91.0 U/L (12-78); Albumin, Blood 3.1 g/dL (3.4-5.0); Albumin/Globulin Ratio 0.7 (0.8-1.8); Anion Gap 9.0 mmol/L (3-11); Aspartate Aminotrans (AST/SGOT 37.0 U/L (12-37); Bilirubin, Total 0.5 mg/dL (0.1-1.0); Blood Urea Nitrogen 20.0 mg/dL (8-24); CO2, Blood 23.0 mmol/L (21-32); Calcium, Blood 8.8 mg/dL (8.5-10.1); Chloride, Blood 112.0 mmol/L (98-108); Creatinine, Blood 0.93 mg/dL (0.60-1.20); Globulin, Blood 4.4 g/dL (2.2-4.0); Glucose, Blood 100.0 mg/dL (70-99); Potassium, Blood 3.8 mmol/L (3.5-5.5); Sodium, Blood 140.0 mmol/L (136-145); Total Protein, Blood 7.5 g/dL (6.4-8.2)
[2025-08-28] MEDS ORDERED: Lasix20 MG PO (12:35)
== END 2025-08-28 13:00 | disposition home or self-care (01) ==
LOC: ER 08:35
PROVIDERS: Emergency Medicine
DX: I11.0 Hypertensive heart disease with heart failure (principal); I50.20 Unspecified systolic (congestive) heart failure; I25.10 Atherosclerotic heart disease of native coronary artery without angina pectoris; J44.9 Chronic obstructive pulmonary disease, unspecified; E78.5 Hyperlipidemia, unspecified; E03.9 Hypothyroidism, unspecified; I48.0 Paroxysmal atrial fibrillation; I25.2 Old myocardial infarction; Z79.82 Long term (current) use of aspirin; Z79.899 Other long term (current) drug therapy; Z87.891 Personal history of nicotine dependence
CPT/HCPCS: 71046; 80053; 83880; 84484; 85025; 87428-QW; 93005; 93010; 96374; 99285-25; J1938

== ENCOUNTER 2025-08-30 06:46 | Emergency (ER) | payer OTHER ==
[~2025-08-30] VITALS: Ht 182.9 cm; Wt 67.1 kg
[~2025-08-30 06:46] MED LIST changes: +Lasix20 MG PO
[2025-08-30 07:21] VITALS: BP 139/84
== END 2025-08-30 09:23 | disposition left against medical advice (07) ==
LOC: ER 06:46
DX: Z53.21 Procedure and treatment not carried out due to patient leaving prior to being seen by health care provider (principal)

== ENCOUNTER 2025-08-30 11:56 | Emergency (ER) | payer OTHER ==
[~2025-08-30] VITALS: Ht 182.9 cm; Wt 67.1 kg
[2025-08-30 12:13] VITALS: BP 119/81
== END 2025-08-30 14:34 | disposition home or self-care (01) ==
LOC: ER 11:56
DX: I82.612 Acute embolism and thrombosis of superficial veins of left upper extremity (principal); I11.0 Hypertensive heart disease with heart failure; I50.20 Unspecified systolic (congestive) heart failure; E78.5 Hyperlipidemia, unspecified; E03.9 Hypothyroidism, unspecified; J44.9 Chronic obstructive pulmonary disease, unspecified; Z87.891 Personal history of nicotine dependence; Z86.73 Personal history of transient ischemic attack (TIA), and cerebral infarction without residual deficits; Z79.82 Long term (current) use of aspirin; Z79.899 Other long term (current) drug therapy
CPT/HCPCS: 99283